=== PATIENT | female | born 1985 | race Caucasian/White ===

== ENCOUNTER 2017-03-06 09:36 | Emergency (ER) | payer SELFPAY ==
[2017-03-06] MEDS ORDERED: HYDROCODONE/ACETAMINOPHEN 5-325 MG TABLET PO ONE (09:49)
[2017-03-06] MEDS ORDERED: ONDANSETRON 4 MG TAB.RAPDIS PO ONE (09:49)
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
[2017-03-06 10:17] LABS: ABSOLUTE BASOPHILS # (AUTO) 0.1 10^3/uL (0.0-0.2); ABSOLUTE EOSINOPHILS # (AUTO) 0.3 10^3/uL (0.0-0.6); ABSOLUTE LYMPHOCYTES (AUTO) 2.3 10^3/uL (0.5-4.7); ABSOLUTE MONOCYTES (AUTO) 0.6 10^3/uL (0.1-1.4); ABSOLUTE NEUT (AUTO) 4.9 10^3/uL (1.7-8.2); BASOPHILS % (AUTO) 0.7 % (0-2); EOSINOPHILS % (AUTO) 3.2 % (0-6); HEMATOCRIT 41.6 % (36.0-47.0); HEMOGLOBIN 13.5 g/dL (12.0-15.5); HGB HCT DIFFERENCE -1.1; LYMPHOCYTES % (AUTO) 28.1 % (13-45); MEAN CORPUSCULAR HEMOGLOBIN 25.2 pg (27.0-33.4); MEAN CORPUSCULAR HGB CONC 32.6 g/dL (32.0-36.0); MEAN CORPUSCULAR VOLUME 77 fl (80-97); MONOCYTES % (AUTO) 7.7 % (3-13); RED BLOOD COUNT 5.37 10^6/uL (3.72-5.28); RED CELL DISTRIBUTION WIDTH 17.1 % (11.5-14.0); SEGMENTED NEUTROPHILS % (AUTO) 60.3 % (42-78); WHITE BLOOD COUNT 8.1 10^3/uL (4.0-10.5)
--- NOTE | 2017-03-06 10:18 | RADIOLOGY REPORT (SQ) ---
EXAM DESCRIPTION: CT HEAD WITHOUT COMPLETED DATE/TIME: 03/06/2017 10:08 am REASON FOR STUDY: ARMANDO COMPARISON: None. TECHNIQUE: Axial images acquired through the brain without intravenous contrast. Images reviewed wi th bone, brain and subdural windows. Images stored on PACS. All CT scanners at this facility use dose modulation, iterative reconstruction, and/or weight based d osing when appropriate to reduce radiation dose to as low as reasonably achievable (ALARA). [facility]: Dose Right [facility]: CareDose [facility]: Dose Right [facility]: Teradose 4D [facility]: [facility] [place] RADIATION DOSE: mGy. LIMITATIONS: None. FINDINGS: VENTRICLES: Normal size and contour. Stable ventricular shunt. CEREBRUM: No masses. No hemorrhage. No midline shift. No evidence for acute infarction. Normal gra y/white matter differentiation. No areas of low density in the white matter. CEREBELLUM: Stent in the right transverse sinus. No masses. No hemorrhage. No alteration of densit y. No evidence for acute infarction. EXTRAAXIAL SPACES: No fluid collections. No masses. ORBITS AND GLOBE: No intra- or extraconal masses. Normal contour of globe without masses. CALVARIUM: No fracture. PARANASAL SINUSES: No fluid or mucosal thickening. SOFT TISSUES: No mass or hematoma. OTHER: No other significant finding. IMPRESSION: UNREMARKABLE BRAIN CT WITHOUT CONTRAST. STABLE VENTRICULAR SHUNT AND STABLE STENT IN TH E RIGHT TRANSVERSE SINUS. NO HYDROCEPHALUS. EVIDENCE OF ACUTE STROKE: NO. COMMENT: Quality ID # [id number]: Final reports with documentation of one or more dose reduction techniques (e.g., Automated exposure control, adjustment of the mA and/or kV according to patient size, use of iterative reconstruction technique) TECHNICAL DOCUMENTATION: JOB ID: [id number]- All Rights Reserved
[2017-03-06 10:22] LABS: APPEARANCE,URINE SLIGHTLY-CLOUDY; BILIRUBIN,URINE NEGATIVE (NEGATIVE); GLUCOSE, URINE NEGATIVE (NEGATIVE); KETONES,URINE NEGATIVE (NEGATIVE); LEUKOCYTE ESTERASE,URINE NEGATIVE (NEGATIVE); NITRITE,URINE NEGATIVE (NEGATIVE); PROTEIN,URINE 30 mg/dL (NEGATIVE)
[2017-03-06] MEDS ORDERED: HYDROMORPHONE HCL INJ/PF 2 MG/ML AMPULE IV ONE (10:23)
--- NOTE | 2017-03-06 10:26 | ER Document Report ---
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 Associated with slight nausea no vomiting. Denies any focal weaknesses numbness tingling sensation. Denies any neck pain neck stiffness. Denies any fever chills runny nose sore throat or cough. Denies any dysuria frequency urgency. TRAVEL OUTSIDE OF THE [place].S. IN LAST 30 DAYS: No - Related Data Allergies/Adverse Reactions: hydroxyzine Allergy (Verified 01/31/17 13:50) ibuprofen Allergy (Verified 01/31/17 13:50) ketorolac [From Toradol] Allergy (Verified 03/06/17 09:40) tramadol Allergy (Verified 01/31/17 13:50) Past Medical History - General Information source: Patient - Social History Smoking Status: Current Every Day Smoker Chew tobacco use (# tins/day): No Frequency of alcohol use: None Drug Abuse: None Family History: Reviewed & Not Pertinent Patient has suicidal ideation: No Patient has homicidal ideation: No Renal/ Medical History: Denies: Hx Peritoneal Dialysis Psychiatric Medical History: Reports: Hx Depression Past Surgical History: Reports: Hx Section, Hx Cholecystectomy, Hx Orthopedic Surgery, Hx Tubal Ligation Review of Systems - Review of Systems Notes: REVIEW OF SYSTEMS: CONSTITUTIONAL : Denies fever, chills, or sweats. Denies recent illness. EENT: Denies eye, ear, throat, or mouth pain or symptoms. Denies nasal or sinus congestion or discharge. Denies throat, tongue, or mouth swelling or difficulty swallowing. CARDIOVASCULAR: Denies chest pain. Denies palpitations or racing or irregular heart beat. Denies ankle edema. RESPIRATORY: Denies cough, cold, or chest congestion. Denies shortness of breath, difficulty breathing, or wheezing. GASTROINTESTINAL: Denies abdominal pain or distention. Denies nausea, vomiting , or diarrhea. Denies blood in vomitus, stools, or per rectum. Denies black, tarry stools. Denies constipation. GENITOURINARY: Denies difficulty urinating, painful urination, burning, frequency, blood in urine, or discharge. FEMALE GENITOURINARY: Denies vaginal bleeding, heavy or abnormal periods, irregular periods. Denies vaginal discharge or odor. MUSCULOSKELETAL: Denies back or neck pain or stiffness. Denies joint pain or swelling. SKIN: Denies rash, lesions or sores. HEMATOLOGIC : Denies easy bruising or bleeding. LYMPHATIC: Denies swollen, enlarged glands. NEUROLOGICAL: Denies confusion or altered mental status. Denies passing out or loss of consciousness. Denies dizziness or lightheadedness. Denies headache. Denies weakness or paralysis or loss of use of either side. Denies problems with gait or speech. Denies sensory loss, numbness, or tingling. Denies seizures. PSYCHIATRIC: Denies anxiety or stress. Denies depression, suicidal ideation, or homicidal ideation. ALL OTHER SYSTEMS REVIEWED AND NEGATIVE. PHYSICAL EXAMINATION: GENERAL: Well-appearing, well-nourished and in no acute distress. Morbidly obese HEAD: Atraumatic, normocephalic. EYES: Pupils equal round and reactive to light, extraocular movements intact, conjunctiva are normal. ENT: Nares patent, oropharynx clear without exudates. Moist mucous membranes. NECK: Normal range of motion, supple without lymphadenopathy LUNGS: Breath sounds clear to auscultation bilaterally and equal. No wheezes rales or rhonchi. HEART: Regular rate and rhythm without murmurs ABDOMEN: Soft, nontender, nondistended abdomen. No guarding, no rebound. No masses appreciated. Female : deferred Musculoskeletal: Normal range of motion, no pitting or edema. No cyanosis. NEUROLOGICAL: Cranial nerves grossly intact. Normal speech, normal gait. Normal sensory, motor exams PSYCH: Normal mood, normal affect. SKIN: Warm, Dry, normal turgor, no rashes or lesions noted. Dictation was performed using [employer] voice recognition software Physical Exam - Vital signs Vitals: Temp Pulse Resp BP Pulse Ox 97.9 F 108 H 20 152/86 H 97 03/06/17 09:43 03/06/17 09:43 03/06/17 09:43 03/06/17 09:43 03/06/17 09:43 Course - Re-evaluation Re-evalutation: 03/06/17 12:54 Patient feeling much better and wished to go home - Vital Signs Vital signs: Temp Pulse Resp BP Pulse Ox 97.9 F 108 H 20 152/86 H 97 03/06/17 09:43 03/06/17 09:43 03/06/17 09:43 03/06/17 09:43 03/06/17 09:43 - Laboratory Result Diagrams: 03/06/17 10:00 03/06/17 10:00 Laboratory results interpreted by me: 03/06/17 03/06/17 10:00 10:00 RBC 5.37 H MCV 77 L MCH 25.2 L RDW 17.1 H Urine Protein 30 H Urine Blood SMALL H Urine Urobilinogen 2.0 H - Diagnostic Test Radiology results interpreted by me: 03/06/17 12:55 CT of the brain is negative for no hydrocephalus, shunt in place Discharge - Discharge Clinical Impression: Headache Qualifiers: Headache type: tension-type Headache chronicity pattern: acute headache Disposition: HOME, SELF-CARE Instructions: Headache ([facility]) Prescriptions: Diclofenac Sodium 50 mg PO TID #30 tablet.
[2017-03-06 10:34] LABS: ALANINE AMINOTRANSFERASE 44 U/L (9-52); ALBUMIN 4.4 g/dL (3.5-5.0); ALKALINE PHOSPHATASE 88 U/L (38-126); ANION GAP 11 (5-19); ASPARTATE AMINO TRANSFERASE 18 U/L (14-36); BILIRUBIN,DIRECT 0.4 mg/dL (0.0-0.4); BILIRUBIN,TOTAL 0.4 mg/dL (0.2-1.3); BLOOD UREA NITROGEN 17 mg/dL (7-20); CALCIUM 10.1 mg/dL (8.4-10.2); CARBON DIOXIDE 28 mmol/L (22-30); CHLORIDE 104 mmol/L (98-107); CREATININE RESULT 0.85 mg/dL (0.52-1.25); GLUCOSE 89 mg/dL (75-110); POTASSIUM 4.6 mmol/L (3.6-5.0); SODIUM 143.3 mmol/L (137-145); TOTAL PROTEIN 7.4 g/dL (6.3-8.2)
[2017-03-06 13:21] VITALS: BP 135/78
== END 2017-03-06 13:23 | disposition home or self-care (01) ==
LOC: ER 09:36
DX: G44.209 Tension-type headache, unspecified, not intractable (principal); R11.0 Nausea; E66.01 Morbid (severe) obesity due to excess calories; Z68.43 Body mass index [BMI] 50.0-59.9, adult; F17.200 Nicotine dependence, unspecified, uncomplicated; Z98.2 Presence of cerebrospinal fluid drainage device; Z88.6 Allergy status to analgesic agent; Z88.5 Allergy status to narcotic agent; Z88.8 Allergy status to other drugs, medicaments and biological substances
CPT/HCPCS: 99284; 96374; 36415; 85025; 81025; 80053; 81001; 70450; S0119; J1170

== ENCOUNTER 2017-03-26 16:38 | Emergency (ER) | payer MEDICAID ==
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
[2017-03-26 18:08] VITALS: BP 144/87
== END 2017-03-26 18:10 | disposition home or self-care (01) ==
LOC: ER 16:38
DX: Z76.0 Encounter for issue of repeat prescription (principal); F41.9 Anxiety disorder, unspecified; T42.4X6A Underdosing of benzodiazepines, initial encounter; Z91.128 Patient's intentional underdosing of medication regimen for other reason; Z91.14 Patient's other noncompliance with medication regimen; R53.1 Weakness; G93.2 Benign intracranial hypertension; F17.210 Nicotine dependence, cigarettes, uncomplicated; Z71.6 Tobacco abuse counseling; Z88.6 Allergy status to analgesic agent; Z88.8 Allergy status to other drugs, medicaments and biological substances
CPT/HCPCS: 99281

== ENCOUNTER 2017-03-28 20:24 | Emergency (ER) | payer MEDICAID ==
[2017-03-28] MEDS ORDERED: ONDANSETRON 4 MG TAB.RAPDIS PO ONE (22:18)
[2017-03-28] MEDS ORDERED: ACETAMINOPHEN 325 MG TABLET PO ONE (22:18)
[2017-03-28] MEDS ORDERED: NAPROXEN 250 MG TABLET PO ONE (22:18)
--- NOTE | 2017-03-28 22:22 | ER Document Report ---
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 She did not have LOC and denies blurry vision, focal weakness, numbness, tingling, neck pain, open wounds, difficulty walking, chest pain, shortness of breath or back pain. TRAVEL OUTSIDE OF THE [place].S. IN LAST 30 DAYS: No - Related Data Allergies/Adverse Reactions: hydroxyzine Allergy (Verified 03/28/17 20:27) ibuprofen Allergy (Verified 03/28/17 20:27) ketorolac [From Toradol] Allergy (Verified 03/28/17 20:27) tramadol Allergy (Verified 03/28/17 20:27) Past Medical History - General Information source: Patient - Social History Smoking Status: Unknown if Ever Smoked Family History: Reviewed & Not Pertinent Patient has suicidal ideation: No Patient has homicidal ideation: No Renal/ Medical History: Denies: Hx Peritoneal Dialysis Psychiatric Medical History: Reports: Hx Depression Past Surgical History: Reports: Hx Section - x3, Hx Cholecystectomy, Hx Neurologic Surgery - MANUFACTURING CHIEF ENGINEER SHUNT, Hx Orthopedic Surgery - left ankle x1, right ankle x5, Hx Tubal Ligation Review of Systems - Review of Systems Notes: REVIEW OF SYSTEMS: CONSTITUTIONAL: -fevers, -chills EENT: -eye pain, -difficulty swallowing, -nasal congestion CARDIOVASCULAR:-chest pain, -syncope. RESPIRATORY: -cough, -SOB GASTROINTESTINAL: -abdominal pain, +nausea, -vomiting, -diarrhea GENITOURINARY: -dysuria, -hematuria MUSCULOSKELETAL: +right shoulder and hip pain, -back pain, -neck pain SKIN: -rash or skin lesions. HEMATOLOGIC: -easy bruising or bleeding. LYMPHATIC: -swollen, enlarged glands. NEUROLOGICAL: -altered mental status or loss of consciousness, -neurologic symptoms PSYCHIATRIC: -anxiety, -depression. ALL OTHER SYSTEMS REVIEWED AND NEGATIVE. Physical Exam - Vital signs Vitals: Temp Pulse Resp BP Pulse Ox 98.2 F 123 H 16 140/93 H 94 03/28/17 20:48 03/28/17 20:48 03/28/17 20:48 03/28/17 20:48 03/28/17 20:48 - Notes Notes: PHYSICAL EXAMINATION: GENERAL: Uncomfortable. HEAD: Atraumatic, normocephalic. No swelling or open wounds over right parietal region. EYES: Pupils equal round and reactive to light, extraocular movements intact, sclera anicteric, conjunctiva are normal. ENT: nares patent, oropharynx clear without exudates. Moist mucous membranes. NECK: Normal range of motion, supple without lymphadenopathy LUNGS: Breath sounds clear to auscultation bilaterally and equal. No wheezes rales or rhonchi. HEART: Tachycardia, regular rhythm. HR 105 on my evaluation. ABDOMEN: Soft, nontender, normoactive bowel sounds. No guarding, no rebound. No masses appreciated. EXTREMITIES: Tenderness and bruising over right anterior shoulder. Full ROM. No tenderness over right hip and able to ambulate without difficulty. NEUROLOGICAL: Cranial nerves grossly intact. Normal speech, normal gait. Normal sensory and motor exams. PSYCH: Normal mood, normal affect. SKIN: Warm, Dry, normal turgor, no rashes or lesions noted. Course - Re-evaluation Re-evalutation: Patient presents after a mechanical fall when she slipped on water getting out of the shower. Her right shoulder x-ray does not show any fractures or dislocations. Right hip is not tender and she is able to ambulate. No signs of trauma on her head CT and using the [place] Head CT Rule, a head CT is not necessary for this patient (sensitivity 83-100% for all intracranial traumatic findings, sensitivity 100% for findings requiring neurosurgical intervention). 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 Instructed her about contusion management with ice packs and Tylenol, since she has a rash to NSAIDs. Her initial tachycardia improved after pain control but she is still slightly tachycardic on discharge because she said that she is still slightly in pain. Given return precautions and she understands. - Vital Signs Vital signs: Temp Pulse Resp BP Pulse Ox 98.2 F 123 H 16 140/93 H 94 03/28/17 20:48 03/28/17 20:48 03/28/17 20:48 03/28/17 20:48 03/28/17 20:48 - Diagnostic Test Radiology reviewed: Image reviewed, Reports reviewed Radiology results interpreted by me: Right shoulder x-ray: NAD Discharge - Discharge Clinical Impression: Contusion of shoulder, right Qualifiers: Encounter type: initial encounter Qualified Code(s): S40.011A - Contusion of right shoulder, initial encounter Contusion of head Qualifiers: Encounter type: initial encounter Contusion of head detail: unspecified part of head Qualified Code(s): S00.93XA - Contusion of unspecified part of head, initial encounter Condition: Stable Disposition: HOME, SELF-CARE Additional Instructions: Contusion Your injury has resulted in a contusion -- a crushing of the deep tissues. No injury to important structures was detected during the physician's exam. Contusions vary in the amount of pain they cause, and in the length of time required for healing. Typically, the area will become bruised, and will remain painful to touch for two or three weeks. However, most patients are back to working and playing within a few days. After the initial period of rest and cold-packs, your symptoms (together with the doctor's recommendations) will determine how rapidly you can get back to full activity. Usually this means "do what feels okay, but don't do things that hurt." If re-examination was recommended, it's important to follow up as instructed. Call the doctor or return any time if pain increases, if swelling becomes severe, if you develop numbness or weakness in an injured extremity, or if any other alarming symptoms occur. Forms: Elevated Blood Pressure
--- NOTE | 2017-03-28 22:43 | RADIOLOGY REPORT (SQ) ---
EXAM DESCRIPTION: SHOULDER RIGHT 2 OR MORE VIEWS COMPLETED DATE/TIME: 03/28/2017 10:32 pm REASON FOR STUDY: right shoulder pain COMPARISON: None. NUMBER OF VIEWS: Three views. TECHNIQUE: Internal rotation, external rotation, and Y view images acquired of the right shoulder. LIMITATIONS: None. FINDINGS: MINERALIZATION: Normal. BONES: No acute fracture or dislocation. No worrisome bone lesions. JOINTS: No dislocation. VISUALIZED LUNGS AND RIBS: No pneumothorax. No rib fracture. SOFT TISSUES: No radiopaque foreign body. OTHER: No other significant finding. IMPRESSION: NEGATIVE STUDY OF THE RIGHT SHOULDER. NO RADIOGRAPHIC EVIDENCE OF ACUTE INJURY. TECHNICAL DOCUMENTATION: JOB ID: [id number] [employer]- All Rights Reserved
[2017-03-28] MEDS ORDERED: HYDROCODONE/ACETAMINOPHEN 5-325 MG TABLET PO ONE (23:07)
[2017-03-28 23:44] VITALS: BP 122/62
== END 2017-03-28 23:40 | disposition home or self-care (01) ==
LOC: ER 20:24
DX: S40.011A Contusion of right shoulder, initial encounter (principal); S00.93XA Contusion of unspecified part of head, initial encounter; M25.511 Pain in right shoulder; M25.551 Pain in right hip; R51 Headache; W18.2XXA Fall in (into) shower or empty bathtub, initial encounter
CPT/HCPCS: 99283; 73030; J3490; S0119

== ENCOUNTER 2017-03-29 07:13 | Emergency (ER) | payer MEDICAID ==
[2017-03-29 07:29] VITALS: BP 131/85
[2017-03-29] MEDS ORDERED: HYDROCODONE/ACETAMINOPHEN 5-325 MG TABLET PO ONE (07:48)
[2017-03-29] MEDS ORDERED: LIDOCAINE 5% (700 MG) TRANSDERMAL ADH..PATCH TP ONE (08:20)
--- NOTE | 2017-03-29 08:21 | ER Document Report ---
ED Fall - General Chief Complaint: Fall Stated Complaint: FALL/ RIGHT SIDE PAIN Time Seen by Provider: 03/29/17 07:41 Mode of Arrival: Ambulatory Information source: Patient Notes: Patient is a 31-year-old female who presents to the ER today for the second time in 12 hours for right shoulder pain after slipping and falling in the shower, hitting her shoulder on the tile floor. Patient states that she also hit her head but denies any loss of consciousness, nausea or vomiting. States that she returns because Tylenol is not working for her shoulder pain. She denies pain anywhere else. She states that she is living in a homeless snf right now. TRAVEL OUTSIDE OF THE U[place] 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, Hx Orthopedic Surgery - left ankle x1, right ankle x5, Hx Tubal Ligation Review of Systems - Review of Systems Constitutional: No symptoms reported EENT: No symptoms reported Cardiovascular: No symptoms reported Respiratory: No symptoms reported Gastrointestinal: No symptoms reported Genitourinary: No symptoms reported Female Genitourinary: No symptoms reported Musculoskeletal: See HPI Skin: No symptoms reported Hematologic/Lymphatic: No symptoms reported Neurological/Psychological: No symptoms reported Physical Exam - Vital signs Vitals: Temp Pulse Resp BP Pulse Ox 97.6 F 107 H 14 131/85 H 95 03/29/17 07:17 03/29/17 07:17 03/29/17 07:17 03/29/17 07:17 03/29/17 07:17 - Notes Notes: PHYSICAL EXAMINATION: GENERAL: Uncomfortable appearing, but in no acute distress. HEAD: Atraumatic, normocephalic. EYES: Pupils equal round and reactive to light, extraocular movements intact, sclera anicteric, conjunctiva are normal. NECK: Normal range of motion, supple without lymphadenopathy LUNGS: CTAB and equal. No wheezes rales or rhonchi. HEART: Regular rate and rhythm without murmurs EXTREMITIES: tender to right shoulder, Normal range of motion, no pitting edema. No cyanosis. NEUROLOGICAL: Cranial nerves grossly intact. Normal sensory/motor exams. PSYCH: Normal mood, normal affect. SKIN: Warm, Dry, normal turgor, no rashes or lesions noted Course - Re-evaluation Re-evalutation: 03/29/17 08:18 Patient is homeless and it is 20 outside currently, she has been here 3 times in the past 3 days. I will give patient pain medication here but will not send her home with any pain medication that she is going back to the homeless snf and there is nothing on her x-ray that is acute. I will place her in a sling here for comfort. - Vital Signs Vital signs: Temp Pulse Resp BP Pulse Ox 97.6 F 107 H 14 131/85 H 95 03/29/17 07:17 03/29/17 07:17 03/29/17 07:17 03/29/17 07:17 03/29/17 07:17 Discharge - Discharge Clinical Impression: Left shoulder pain Qualifiers: Chronicity: acute Qualified Code(s): M25.512 - Pain in left shoulder Condition: Stable Disposition: HOME, SELF-CARE Additional Instructions: Return immediately for any new or worsening symptoms. Follow up with primary care provider, call tomorrow to make followup appointment. Prescriptions: Lidocaine 1 each TP DAILY #10 adh..patch
[2017-03-29] MEDS ORDERED: HYDROCODONE/ACETAMINOPHEN 5-325 MG (6 TAB/ER DISP) PO PRN (08:56)
== END 2017-03-29 08:36 | disposition home or self-care (01) ==
LOC: ER 07:13
DX: M25.512 Pain in left shoulder (principal); W18.2XXA Fall in (into) shower or empty bathtub, initial encounter; Y93.E1 Activity, personal bathing and showering; Y92.89 Other specified places as the place of occurrence of the external cause; Z88.6 Allergy status to analgesic agent; Z88.5 Allergy status to narcotic agent; Z88.8 Allergy status to other drugs, medicaments and biological substances; Z59.0 Homelessness
CPT/HCPCS: 99283; L3650; J3490

== ENCOUNTER 2017-04-10 08:20 | Emergency (ER) | payer MEDICAID ==
[2017-04-10 08:44] VITALS: BP 121/85
[2017-04-10] MEDS ORDERED: NORMAL SALINE 500 ML IV ONE (09:20)
[2017-04-10] MEDS ORDERED: LIDOCAINE 5% (700 MG) TRANSDERMAL ADH..PATCH TP ONE (09:23)
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
== END 2017-04-10 09:25 | disposition left against medical advice (07) ==
LOC: ER 08:20
DX: R51 Headache (principal); R42 Dizziness and giddiness; G93.2 Benign intracranial hypertension; Z98.2 Presence of cerebrospinal fluid drainage device; Z91.81 History of falling; Z59.0 Homelessness; Z88.6 Allergy status to analgesic agent; Z88.8 Allergy status to other drugs, medicaments and biological substances; Z88.5 Allergy status to narcotic agent; Z53.20 Procedure and treatment not carried out because of patient's decision for unspecified reasons
CPT/HCPCS: 99281

== ENCOUNTER 2017-04-23 09:39 | Emergency (ER) | payer MEDICAID ==
[2017-04-23 10:08] VITALS: BP 130/86
[2017-04-23] MEDS ORDERED: HYDROMORPHONE HCL INJ/PF 2 MG/ML AMPULE IV ONE (10:28)
[2017-04-23] MEDS ORDERED: ONDANSETRON HCL INJ/PF 4 MG/2 ML SDV IV ONE (10:28)
--- NOTE | 2017-04-23 10:31 | ER Document Report ---
ED Medical Screen (RME) - General Chief Complaint: Flank Pain Stated Complaint: BACK PAIN,URINARY ISSUES Time Seen by Provider: 04/23/17 10:24 Notes: 31-year-old female patient comes emergency room complaining of burning with urination for the past 3 days. Try Pyridium without help. This morning woke up with noting blood in the urine and severe right flank pain. She does have past history of kidney stones. She is standing up in semi-pacing the floor bent over suggestive of renal colic symptoms. There is right CVA percussion tenderness. There is no tenderness to palpate the muscles. I have greeted and performed a rapid initial assessment of this patient. A comprehensive ED assessment and evaluation of the patient, analysis of test results and completion of the medical decision making process will be conducted by additional ED providers. TRAVEL OUTSIDE OF THE [place] IN LAST 30 DAYS: No - Related Data Allergies/Adverse Reactions: hydroxyzine Allergy (Verified 04/23/17 09:49) ibuprofen Allergy (Verified 04/23/17 09:49) ketorolac [From Toradol] Allergy (Verified 04/23/17 09:49) tramadol Allergy (Verified 04/23/17 09:49) Past Medical History - Social History Chew tobacco use (# tins/day): No Frequency of alcohol use: None Drug Abuse: None Renal/ Medical History: Reports: Hx Kidney Stones. 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
[2017-04-23 10:44] LABS: APPEARANCE,URINE SLIGHTLY-CLOUDY; BILIRUBIN,URINE NEGATIVE (NEGATIVE); GLUCOSE, URINE NEGATIVE (NEGATIVE); KETONES,URINE NEGATIVE (NEGATIVE); LEUKOCYTE ESTERASE,URINE NEGATIVE (NEGATIVE); NITRITE,URINE NEGATIVE (NEGATIVE); PROTEIN,URINE 100 mg/dL (NEGATIVE); URINE SPECIFIC GRAVITY 1.029
[2017-04-23 10:47] LABS: COLOR,URINE DARK YELLOW
[2017-04-23 11:01] LABS: ABSOLUTE BASOPHILS # (AUTO) 0.1 10^3/uL (0.0-0.2); ABSOLUTE EOSINOPHILS # (AUTO) 0.3 10^3/uL (0.0-0.6); ABSOLUTE LYMPHOCYTES (AUTO) 2.7 10^3/uL (0.5-4.7); ABSOLUTE MONOCYTES (AUTO) 0.6 10^3/uL (0.1-1.4); ABSOLUTE NEUT (AUTO) 8.2 10^3/uL (1.7-8.2); BASOPHILS % (AUTO) 0.5 % (0-2); EOSINOPHILS % (AUTO) 2.3 % (0-6); HEMATOCRIT 42.8 % (36.0-47.0); LYMPHOCYTES % (AUTO) 23.2 % (13-45); MEAN CORPUSCULAR HEMOGLOBIN 25.2 pg (27.0-33.4); MEAN CORPUSCULAR HGB CONC 32.6 g/dL (32.0-36.0); MEAN CORPUSCULAR VOLUME 77 fl (80-97); MONOCYTES % (AUTO) 5.4 % (3-13); PLATELET COUNT 304 10^3/uL (150-450); RED BLOOD COUNT 5.54 10^6/uL (3.72-5.28); RED CELL DISTRIBUTION WIDTH 17.1 % (11.5-14.0); SEGMENTED NEUTROPHILS % (AUTO) 68.6 % (42-78); TOTAL CELLS COUNTED % (AUTO) 100 %; WHITE BLOOD COUNT 11.9 10^3/uL (4.0-10.5)
--- NOTE | 2017-04-23 11:12 | RADIOLOGY REPORT (SQ) ---
EXAM DESCRIPTION: CT LTD RENAL STONE PROTOCOL ON COMPLETED DATE/TIME: 04/23/2017 10:53 am REASON FOR STUDY: R flank pain, PMH kidney stones COMPARISON: None. TECHNIQUE: CT scan of the abdomen and pelvis performed without intravenous or oral contrast. Images reviewed with lung, soft tissue, and bone windows. Reconstructed coronal and sagittal MPR images revi ewed. All images stored on PACS. All CT scanners at this facility use dose modulation, iterative reconstruction, and/or weight based d osing when appropriate to reduce radiation dose to as low as reasonably achievable (ALARA). [facility]: Dose Right [facility]: CareDose [facility]: Dose Right [facility]: Teradose 4D [facility]: [employer] RADIATION DOSE: CT Rad equipment meets quality standard of care and radiation dose reduction techniq ues were employed. CTDIvol: 19.0 mGy. DLP: 1134 mGy-cm.mGy. LIMITATIONS: None. FINDINGS: LOWER CHEST: No significant findings. No nodules or infiltrates. NON-CONTRASTED LIVER, SPLEEN, ADRENALS: Evaluation limited by lack of IV contrast. No identified sign ificant masses. PANCREAS: No masses. No peripancreatic inflammatory changes. GALLBLADDER: Surgically absent. RIGHT KIDNEY AND URETER: No suspicious masses. Assessment limited by lack of IV contrast. No signif icant calcifications. No hydronephrosis or hydroureter. LEFT KIDNEY AND URETER: No suspicious masses. Assessment limited by lack of IV contrast. No signifi cant calcifications. No hydronephrosis or hydroureter. AORTA AND RETROPERITONEUM: No aneurysm. No retroperitoneal masses or adenopathy. BOWEL AND PERITONEAL CAVITY: No obvious masses or inflammatory changes. No free fluid. APPENDIX: Normal. PELVIS, BLADDER, AND ABDOMINAL WALL:No abnormal masses. No free fluid. Bladder normal. Very small fa t containing umbilical hernia, not significant. BONES: No significant findings. OTHER: Shunt tube is present which descends in the right chest and abdominal wall entering the mid ab domen on the right with its tip in the pelvis. No fluid collection is seen adjacent to the shunt tub e. IMPRESSION: 1. No acute abnormality. In particular no evidence of urinary tract stone or obstructi on. 2. Status post cholecystectomy. 3. Shunt tube is noted in place. COMMENT: Quality ID # [id number]: Final reports with documentation of one or more dose reduction techniques (e.g., Automated exposure control, adjustment of the mA and/or kV according to patient size, use of iterative reconstruction technique) TECHNICAL DOCUMENTATION: JOB ID: [id number] [employer]- All Rights Reserved
[2017-04-23 11:24] LABS: ALANINE AMINOTRANSFERASE 32 U/L (9-52); ALBUMIN 4.6 g/dL (3.5-5.0); ALKALINE PHOSPHATASE 92 U/L (38-126); ANION GAP 9 (5-19); ASPARTATE AMINO TRANSFERASE 18 U/L (14-36); BILIRUBIN,DIRECT 0.2 mg/dL (0.0-0.4); BILIRUBIN,TOTAL 0.6 mg/dL (0.2-1.3); BLOOD UREA NITROGEN 16 mg/dL (7-20); CALCIUM 10.2 mg/dL (8.4-10.2); CARBON DIOXIDE 29 mmol/L (22-30); CHLORIDE 106 mmol/L (98-107); GLUCOSE 85 mg/dL (75-110); TOTAL PROTEIN 7.7 g/dL (6.3-8.2)
[2017-04-23] MEDS ORDERED: HYDROCODONE/ACETAMINOPHEN 5-325 MG TABLET PO ONE (11:27)
--- NOTE | 2017-04-23 11:39 | ER Document Report ---
ED General - General Chief Complaint: Flank Pain Stated Complaint: BACK PAIN,URINARY ISSUES Time Seen by Provider: 04/23/17 10:24 Mode of Arrival: Ambulatory Information source: Patient Notes: 31-year-old female history of pseudotumor cerebri with no headaches presents with complaints of right flank pain hematuria. Patient denies any fevers or chills denies any nausea vomiting or diarrhea. Patient notes she had burning on urination 2 days prior. Patient states she took ibuprofen and Pyridium with no improvement of symptoms. She notes she has had one kidney stone in the past TRAVEL OUTSIDE OF THE [place] IN LAST 30 DAYS: No - HPI Onset: Yesterday Onset/Duration: Sudden Quality of pain: Sharp Severity: Mild Pain Level: 1 Associated symptoms: Body/muscle aches Exacerbated by: Denies Relieved by: Denies Similar symptoms previously: Yes Recently seen / treated by doctor: Yes - Related Data Allergies/Adverse Reactions: hydroxyzine Allergy (Verified 04/23/17 09:49) ibuprofen Allergy (Verified 04/23/17 09:49) ketorolac [From Toradol] Allergy (Verified 04/23/17 09:49) tramadol Allergy (Verified 04/23/17 09:49) Past Medical History - Social History Smoking Status: Current Every Day Smoker Cigarette use (# per day): Yes Chew tobacco use (# tins/day): No Smoking Education Provided: No Frequency of alcohol use: None Drug Abuse: None Family History: Reviewed & Not Pertinent Patient has suicidal ideation: No Patient has homicidal ideation: No Renal/ Medical History: Reports: Hx Kidney Stones. 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 Denies recent illness. EENT: Denies eye, ear, throat, or mouth pain or symptoms. Denies nasal or sinus congestion or discharge. Denies throat, tongue, or mouth swelling or difficulty swallowing. CARDIOVASCULAR: Denies chest pain. Denies palpitations or racing or irregular heart beat. Denies ankle edema. RESPIRATORY: Denies cough, cold, or chest congestion. Denies shortness of breath, difficulty breathing, or wheezing. GASTROINTESTINAL: Admits to right flank pain GENITOURINARY: Admits to burning on urination. FEMALE GENITOURINARY: Denies vaginal bleeding, heavy or abnormal periods, irregular periods. Denies vaginal discharge or odor. MUSCULOSKELETAL: Denies back or neck pain or stiffness. Denies joint pain or swelling. SKIN: Denies rash, lesions or sores. HEMATOLOGIC : Denies easy bruising or bleeding. LYMPHATIC: Denies swollen, enlarged glands. NEUROLOGICAL: Denies confusion or altered mental status. Denies passing out or loss of consciousness. Denies dizziness or lightheadedness. Denies headache. Denies weakness or paralysis or loss of use of either side. Denies problems with gait or speech. Denies sensory loss, numbness, or tingling. Denies seizures. PSYCHIATRIC: Denies anxiety or stress. Denies depression, suicidal ideation, or homicidal ideation. ALL OTHER SYSTEMS REVIEWED AND NEGATIVE. PHYSICAL EXAMINATION: GENERAL: Well-appearing, well-nourished and in no acute distress. HEAD: Atraumatic, normocephalic. EYES: Pupils equal round and reactive to light, extraocular movements intact, conjunctiva are normal. ENT: Nares patent, oropharynx clear without exudates. Moist mucous membranes. NECK: Normal range of motion, supple without lymphadenopathy LUNGS: Breath sounds clear to auscultation bilaterally and equal. No wheezes rales or rhonchi. HEART: Regular rate and rhythm without murmurs ABDOMEN: Soft, nontender, nondistended abdomen. No guarding, no rebound. No masses appreciated. Female : deferred Musculoskeletal: Normal range of motion, no pitting or edema. No cyanosis. NEUROLOGICAL: Cranial nerves grossly intact. Normal speech, normal gait. Normal sensory, motor exams PSYCH: Normal mood, normal affect. SKIN: Warm, Dry, normal turgor, no rashes or lesions noted. Dictation was performed using [employer] voice recognition software Physical Exam - Vital signs Vitals: Temp Pulse Resp BP Pulse Ox 97.6 F 103 H 18 130/86 H 96 04/23/17 09:51 04/23/17 09:51 04/23/17 09:51 04/23/17 09:51 04/23/17 09:51 Course - Re-evaluation Re-evalutation: 04/23/17 12:50 Patient's presentation is quite benign in appearance, CT noted no significant abnormality, patient's allergies to ibuprofen Toradol tramadol are noted, patient received Dilaudid by the initial physician, she notes that she received lots of Dilaudid while she was in [place] and she has a tolerance and needs more pain medication. [place] drug database review noted the patient has not received any narcotics here I will treat the patient with pain control for her flank pain but no obvious source is noted, given that she is having burning in urination I did put her on antibiotics at her request After performing a Medical Screening Examination, I estimate there is LOW risk for ACUTE APPENDICITIS, BOWEL OBSTRUCTION, ACUTE CHOLECYSTITIS, PERFORATED DIVERTICULITIS, INCARCERATED HERNIA, PANCREATITIS, PELVIC INFLAMMATORY DISEASE, PERFORATED ULCER, ECTOPIC , or TUBO-OVARIAN ABSCESS, thus I consider the discharge disposition reasonable. Also, there is no evidence or peritonitis , sepsis, or toxicity. I have reevaluated this patient multiple times and no significant life threatening changes are noted. The patient and I have discussed the diagnosis and risks, and we agree with discharging home with close follow-up with the understanding that symptoms and presentations can change. We also discussed returning to the Emergency Department immediately if new or worsening symptoms occur. We have discussed the symptoms which are most concerning (e.g., bloody stool, fever, changing or worsening pain, vomiting) that necessitate immediate return. - Vital Signs Vital signs: Temp Pulse Resp BP Pulse Ox 97.6 F 103 H 18 130/86 H 96 04/23/17 09:51 04/23/17 09:51 04/23/17 10:15 04/23/17 09:51 04/23/17 09:51 - Laboratory Result Diagrams: 04/23/17 10:35 04/23/17 10:35 Laboratory results interpreted by me: 04/23/17 04/23/17 09:56 10:35 WBC 11.9 H RBC 5.54 H MCV 77 L MCH 25.2 L RDW 17.1 H Urine Protein 100 H Urine Blood LARGE H Urine Urobilinogen 4.0 H - Diagnostic Test Radiology reviewed: Image reviewed, Reports reviewed - No acute abnormality Discharge - Discharge Clinical Impression: Flank pain Hematuria Qualifiers: Hematuria type: gross Qualified Code(s): R31.0 - Gross hematuria Condition: Stable Disposition: HOME, SELF-CARE Instructions: Flank Pain ([facility]) Prescriptions: Acetaminophen with Codeine [Tylenol #3 Tablet] 1 each PO Q4HP PRN #10 tablet PRN Reason: Ciprofloxacin HCl [Cipro 500 mg Tablet] 500 mg PO BID #10 tablet Hydrocodone/Acetaminophen [[place] 5-325 mg Tablet] 1 tab PO Q6 #10 tablet Referrals: MAX MICHELLE MD [Primary Care Provider] - Follow up tomorrow
== END 2017-04-23 12:05 | disposition home or self-care (01) ==
LOC: ER 09:39
DX: R10.9 Unspecified abdominal pain (principal); R31.0 Gross hematuria; M79.1 Myalgia; F17.210 Nicotine dependence, cigarettes, uncomplicated; Z88.6 Allergy status to analgesic agent; Z87.442 Personal history of urinary calculi; Z90.49 Acquired absence of other specified parts of digestive tract; Z98.51 Tubal ligation status
CPT/HCPCS: 99284; 96374; 96375; 36415; 85025; 80053; 81001; 76380; J1170; J2405

== ENCOUNTER 2017-04-26 20:04 | Emergency (ER) | payer MEDICAID ==
[2017-04-26] MEDS ORDERED: MORPHINE SULFATE 10 MG/ML INJ IV ONE ×2 (20:21→21:16)
[2017-04-26] MEDS ORDERED: NORMAL SALINE 1000 ML 1,000 ML IV ONE (20:21)
--- NOTE | 2017-04-26 20:24 | ER Document Report ---
ED Medical Screen (RME) - General Chief Complaint: Flank Pain Stated Complaint: FLANK PAIN Time Seen by Provider: 04/26/17 20:21 Mode of Arrival: Ambulatory Information source: Patient TRAVEL OUTSIDE OF THE [place] IN LAST 30 DAYS: No - HPI Patient complains to provider of: flank pain Onset: Yesterday - pt. states she wsa seen here for flank pain and hematuria and was told she had a uti. States pain is getting worse and still has blood in urine - Related Data Allergies/Adverse Reactions: hydroxyzine Allergy (Verified 04/23/17 09:49) ibuprofen Allergy (Verified 04/23/17 09:49) ketorolac [From Toradol] Allergy (Verified 04/23/17 09:49) tramadol Allergy (Verified 04/23/17 09:49) Past Medical History - Social History Chew tobacco use (# tins/day): No Frequency of alcohol use: None Renal/ Medical History: Reports: Hx Kidney Stones. 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
[2017-04-26 20:44] LABS: ABSOLUTE BASOPHILS # (AUTO) 0.1 10^3/uL (0.0-0.2); ABSOLUTE EOSINOPHILS # (AUTO) 0.3 10^3/uL (0.0-0.6); ABSOLUTE LYMPHOCYTES (AUTO) 2.5 10^3/uL (0.5-4.7); ABSOLUTE MONOCYTES (AUTO) 0.4 10^3/uL (0.1-1.4); ABSOLUTE NEUT (AUTO) 4.2 10^3/uL (1.7-8.2); BASOPHILS % (AUTO) 0.8 % (0-2); EOSINOPHILS % (AUTO) 4.4 % (0-6); HEMOGLOBIN 13.1 g/dL (12.0-15.5); LYMPHOCYTES % (AUTO) 33.2 % (13-45); MEAN CORPUSCULAR HEMOGLOBIN 25.4 pg (27.0-33.4); MEAN CORPUSCULAR HGB CONC 32.8 g/dL (32.0-36.0); MEAN CORPUSCULAR VOLUME 77 fl (80-97); MONOCYTES % (AUTO) 5.9 % (3-13); PLATELET COUNT 288 10^3/uL (150-450); RED BLOOD COUNT 5.18 10^6/uL (3.72-5.28); RED CELL DISTRIBUTION WIDTH 16.9 % (11.5-14.0); SEGMENTED NEUTROPHILS % (AUTO) 55.7 % (42-78); TOTAL CELLS COUNTED % (AUTO) 100 %; WHITE BLOOD COUNT 7.5 10^3/uL (4.0-10.5)
[2017-04-26 20:51] LABS: APPEARANCE,URINE CLOUDY; BILIRUBIN,URINE NEGATIVE (NEGATIVE); COLOR,URINE AMBER; GLUCOSE, URINE NEGATIVE (NEGATIVE); KETONES,URINE NEGATIVE (NEGATIVE); LEUKOCYTE ESTERASE,URINE TRACE (NEGATIVE); NITRITE,URINE NEGATIVE (NEGATIVE); PROTEIN,URINE 100 mg/dL (NEGATIVE); URINE SPECIFIC GRAVITY 1.026
[2017-04-26 21:01] LABS: ALANINE AMINOTRANSFERASE 35 U/L (9-52); ALBUMIN 4.1 g/dL (3.5-5.0); ALKALINE PHOSPHATASE 74 U/L (38-126); ANION GAP 9 (5-19); ASPARTATE AMINO TRANSFERASE 19 U/L (14-36); BILIRUBIN,DIRECT 0.2 mg/dL (0.0-0.4); BILIRUBIN,TOTAL 0.4 mg/dL (0.2-1.3); BLOOD UREA NITROGEN 15 mg/dL (7-20); CALCIUM 10.1 mg/dL (8.4-10.2); CARBON DIOXIDE 27 mmol/L (22-30); CHLORIDE 105 mmol/L (98-107); GLUCOSE 92 mg/dL (75-110); POTASSIUM 3.8 mmol/L (3.6-5.0); SODIUM 140.8 mmol/L (137-145); TOTAL PROTEIN 6.7 g/dL (6.3-8.2)
[2017-04-26] MEDS ORDERED: CYCLOBENZAPRINE HCL 10 MG TABLET PO ONE (21:16)
--- NOTE | 2017-04-26 21:17 | ER Document Report ---
ED GI/ - General Chief Complaint: Flank Pain Stated Complaint: FLANK PAIN Time Seen by Provider: 04/26/17 20:21 Mode of Arrival: Ambulatory Notes: Patient is a 31-year-old female who presents emergency department after evaluation in April 23 with a chief complaint of right flank pain with associated hematuria for the past 6 days. Patient states that she has been taking her Cipro as directed and presents today since she took her last [place] and still having pain. She did not follow-up with her primary care doctor regarding this. She has any fevers, chills. She admits to nausea with vomiting , hematuria, mild pyuria but denies any urinary retention. Patient states that she still has her menstrual period but had one in the middle of the month. She denies any vaginal bleeding and states that she tampon recently to make sure that it was not that and states that there is no evidence of blood on the tampon. Past medical history significant for PTSD, insomnia, anxiety, conditions, pseudotumor cerebri with LOCK AND DAM EQUIPMENT REPAIRER shunt Past surgical history significant for LOCK AND [employer] EQUIPMENT REPAIRER shunt, 3, LAP-BAND placement and removal, cholecystectomy, multiple right ankle procedures Social history significant for current tobacco use, rare alcohol. Denies any IV drug use. Works which she is starting in April. Allergies to tramadol, Toradol, hydroxyzine. Takes Seroquel, Ambien and Klonopin at home. Primary care is with [facility] TRAVEL OUTSIDE OF THE [place] IN LAST 30 DAYS: No - Related Data Allergies/Adverse Reactions: hydroxyzine Allergy (Verified 04/23/17 09:49) ibuprofen Allergy (Verified 04/23/17 09:49) ketorolac [From Toradol] Allergy (Verified 04/23/17 09:49) tramadol Allergy (Verified 04/23/17 09:49) Past Medical History - General Information source: Patient - Social History Smoking Status: Current Every Day Smoker Chew tobacco use (# tins/day): No Frequency of alcohol use: None Family History: Reviewed & Not Pertinent Patient has suicidal ideation: No Patient has homicidal ideation: No Renal/ Medical History: Reports: Hx Kidney Stones. Denies: Hx Peritoneal Dialysis Psychiatric Medical History: Reports: Hx Depression Past Surgical History: Reports: Hx Section - x3, Hx Cholecystectomy, Hx Neurologic Surgery - LOCK AND DAM EQUIPMENT REPAIRER SHUNT, Hx Orthopedic Surgery - left ankle x1, right ankle x5, Hx Tubal Ligation Review of Systems - Review of Systems Constitutional: No symptoms reported Cardiovascular: No symptoms reported Respiratory: No symptoms reported Gastrointestinal: See HPI Genitourinary: See HPI Female Genitourinary: No symptoms reported Musculoskeletal: See HPI -: Yes All other systems reviewed and negative Physical Exam - Vital signs Vitals: Temp Pulse Resp BP Pulse Ox 98.0 F 100 20 125/76 96 04/26/17 20:13 04/26/17 20:13 04/26/17 20:13 04/26/17 20:13 04/26/17 20:13 - Notes Notes: PHYSICAL EXAM GENERAL: Alert, interacts well. HEAD: Normocephalic, atraumatic. LUNGS: Clear to auscultation bilaterally, no wheezes, rales, or rhonchi. No respiratory distress. HEART: Regular rate and rhythm. No murmurs, gallops, or rubs. ABDOMEN: Soft, nondistended, nontender. No guarding, rebound, or rigidity.. Bowel sounds present in all 4 quadrants. Female exam: Patient refusing Back: Pain reproducible patient in the right paralumbar musculature without evidence of CVA tenderness bilaterally EXTREMITIES: Moves all 4 extremities spontaneously. No edema, radial and dorsalis pedis pulses 2/4 bilaterally. No cyanosis. NEUROLOGICAL: Alert and oriented x4. Normal speech. PSYCH: Normal affect, normal mood. SKIN: Warm, dry, normal turgor. No rashes or lesions noted. Course - Re-evaluation Re-evalutation: 04/26/17 22:20 Patient is a 31-year-old female who is hemodynamically stable, no acute distress and afebrile. Presentation is consistent with persistent pyelonephritis. Review of the previous CT that was completed on April [address] Luz does not show any evidence of hydronephrosis or underlying kidney stone. Patient's presentation is consistent with right paralumbar muscle inflammation with underlying pyelonephritis with absence of CVA tenderness. Patient had improvement after pain medication and muscle relaxer. CBC is stable without evidence of leukocytosis or anemia. Chemistry without evidence of acute renal failure. Urinalysis with improvement in hematuria. Will continue patient's treatment for pyelonephritis with instruction to follow-up with her primary care provider for recheck at the end of the week. Patient agrees with plan and is stable for discharge home - Vital Signs Vital signs: Temp Pulse Resp BP Pulse Ox 98.2 F 88 18 125/72 97 04/26/17 22:50 04/26/17 22:50 04/26/17 22:50 04/26/17 22:50 04/26/17 22:50 - Laboratory Result Diagrams: 04/26/17 20:30 04/26/17 20:30 Laboratory results interpreted by me: 04/26/17 04/26/17 20:30 20:40 MCV 77 L MCH 25.4 L RDW 16.9 H Urine Protein 100 H Urine Blood LARGE H Urine Urobilinogen 4.0 H Ur Leukocyte Esterase TRACE H Discharge - Discharge Clinical Impression: Flank pain Hematuria Qualifiers: Hematuria type: gross Qualified Code(s): R31.0 - Gross hematuria Condition: Good Disposition: HOME, SELF-CARE Additional Instructions: You have been given a prescription for Cipro to give you a total course of 7 days. Please continue to take your antibiotic as you have been. PYELONEPHRITIS: Your evaluation shows evidence of pyelonephritis. This is an infection in the kidney. Typical symptoms are fever, pain in the flank, pain on urination, and frequent urination. Many cases of pyelonephritis can be treated at home. Hospital care may be necessary for patients who are very ill, or elderly or . Pyelonephritis is treated with antibiotics. Be sure to take all the medication as prescribed. Drink plenty of liquids (about three quarts per day) . You may take acetaminophen for fever. You should feel significantly improved within two days. You should have a recheck of your urine in about one week to insure that the infection is gone. Return for a re-examination if your symptoms worsen in any way -- such as high fever, shaking chills, severe weakness or dizziness, severe pain, or inability to pass your urine. PAIN MEDICATION INJECTION: You have received an injection of a pain medication. You should experience significant pain relief within 45 minutes. This drug is a narcotic - - it will impair your judgement, slow your reaction time and make you sleepy ( as well as relieve your pain). Narcotics also can cause nausea. You should not drive, work with machinery, or perform any task requiring mental alertness until all effects of the medication are gone -- six to eight hours. Do not take any alcohol, or sedatives, and do not take any other medication without checking with your physician. ANTINAUSEA MEDICATION: You have been given a medication to suppress nausea and vomiting. This type of medication can be given as a shot, pill, or suppository. It will usually last for many hours. Pills and shots usually last six to eight hours, suppositories last about 12 hours. For the typical illness, only one or two doses of the medication may be necessary. Mild lightheadedness may occur. This type of medicine can cause drowsiness. Do not drive or operate dangerous machinery while under its influence. Do not mix with alcohol. See your doctor at once if you have muscle spasms or tightness, or uncontrollable motions (particularly of the neck, mouth, or jaw). Persistent vomiting or severe lightheadedness should also be evaluated by the physician. ANTIBIOTIC THERAPY: You have been given an antibiotic prescription. It's important that you take all the medication, unless instructed otherwise by your physician. Failure to complete the entire course can result in relapse of your condition. Common side effects of antibiotics include nausea, intestinal cramping, or diarrhea. Women may develop vaginal yeast infections, and babies can get yeast (thrush) in the mouth following the use of antibiotics. Contact your physician if you develop significant side effects from this medication. Allergy to this antibiotic can result in hives, wheezing, faintness, or itching. If symptoms of allergy occur, stop the medication and call the doctor. CIPROFLOXACIN: You have been given an antibacterial agent, ciprofloxacin (Cipro). This medicine is not related to the penicillins, sulfas, cephalosporins, or tetracyclines. It is often given to patients who are allergic to these drugs. It has been chosen for you either because other drugs are not appropriate, or because of the nature of your problem. Cipro should not be taken with antacids, as these can decrease its effectiveness. It can be taken without regard to meals. CIPRO SHOULD NOT BE TAKEN BY CHILDREN, NURSING WOMEN, OR WOMEN. Although Cipro is usually well-tolerated, common side effects can include nausea and diarrhea. Contact your doctor if you experience any unusual symptoms while on this medication, such as joint pain or swelling, shortness of breath, wheezing, faintness, or hives. USE OF ACETAMINOPHEN (Tylenol): Acetaminophen may be taken for pain relief or fever control. It's much safer than aspirin, offering a wider range of "safe" dosages. It is safe during . Some brand names are Tylenol, Panadol, Datril, Anacin 3, Tempra, and Liquiprin. Acetaminophen can be repeated every four hours. The following are maximum recommended dosages: >89 pounds or adults 650 mg to 900 mg Acetaminophen can be repeated every four hours. Maximum dose not to exceed 4000 mg a day. ORAL NARCOTIC MEDICATION: You have been given a prescription for pain control. This medication is a narcotic. It's best taken with food, as nausea can result if taken on an empty stomach. Don't operate machinery or drive within six hours of taking this medication. Do not combine this medicine with alcohol, or with any medication which can cause sedation (such as cold tablets or sleeping pills) unless you get permission from the physician. Narcotics tend to cause constipation. If possible, drink plenty of fluids and eat a diet high in fiber and fruits. Please be aware that prescription narcotics also have the potential for abuse. People become addicted to these medications because of the general sense of wellbeing that they induce. This feeling along with a significant reduction in tension, anxiety, and aggression provides a stimulating seductive quality to these drugs. Once your pain is under control, we encourage you to discard your unused narcotics. FOLLOW-UP CARE: If you have been referred to a physician for follow-up care, call the physician s office for an appointment as you were instructed or within the next two days. If you experience worsening or a significant change in your symptoms, notify the physician immediately or return to the Emergency Department at any time for re-evaluation. Prescriptions: Ciprofloxacin HCl [Cipro 500 mg Tablet] 500 mg PO BID 2 Days #4 tablet Methocarbamol [Robaxin 750 mg Tablet] 750 mg PO ASDIR PRN #30 tablet PRN Reason: Forms: Parent Work Note Referrals: MAX MICHELLE MD [Primary Care Provider] - 04/30/17
[2017-04-26] MEDS ORDERED: HYDROCODONE/ACETAMINOPHEN 5-325 MG (6 TAB/ER DISP) PO PRN (22:26)
[2017-04-27 01:43] VITALS: BP 125/72
== END 2017-04-26 22:50 | disposition home or self-care (01) ==
LOC: ER 20:04
DX: R31.0 Gross hematuria (principal); R10.9 Unspecified abdominal pain; R11.2 Nausea with vomiting, unspecified; N39.0 Urinary tract infection, site not specified; F41.9 Anxiety disorder, unspecified; G47.00 Insomnia, unspecified; G93.2 Benign intracranial hypertension; Z98.84 Bariatric surgery status; F17.200 Nicotine dependence, unspecified, uncomplicated
CPT/HCPCS: 96376; 99284; 96361; 96374; 36415; 87086; 85025; 81025; 80053; 81001; J3490; J2270; J7030

== ENCOUNTER 2017-05-17 17:58 | Emergency (ER) | payer MEDICAID ==
[2017-05-17] MEDS ORDERED: NORMAL SALINE 1000 ML 1,000 ML IV ONE (19:07)
--- NOTE | 2017-05-17 19:10 | ER Document Report ---
ED Medical Screen (RME) - General Chief Complaint: Weak, possible med reaction Stated Complaint: DIZZY, POSSIBLE MEDICATION REACTION Time Seen by Provider: 05/17/17 19:07 Notes: Patient states she was started on Wellbutrin, prazosin, and propanolol today for rapid heart rate. She says her heart rate has been running in the 120s and 130s. She also states that she is being treated for depression and smoking cessation. She states after taking the medicines today she has been very dizzy and falling. 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 She states she cannot take any ibuprofen Toradol or tramadol. She states she took Tylenol and does not work. She states that she needs morphine or Dilaudid. TRAVEL OUTSIDE OF THE [place] IN LAST 30 DAYS: No - Related Data Allergies/Adverse Reactions: hydroxyzine Allergy (Verified 04/23/17 09:49) ibuprofen Allergy (Verified 04/23/17 09:49) ketorolac [From Toradol] Allergy (Verified 04/23/17 09:49) tramadol Allergy (Verified 04/23/17 09:49) Past Medical History - Social History Frequency of alcohol use: Rare Drug Abuse: None - Past Medical History Cardiac Medical History: Reports: Hx Hypertension Renal/ Medical History: Reports: Hx Kidney Stones. Denies: Hx Peritoneal Dialysis Psychiatric Medical History: Reports: Hx Depression Past Surgical History: Reports: Hx Section - x3, Hx Cholecystectomy, Hx Neurologic Surgery - WOMEN'S APPAREL SALESPERSON SHUNT, Hx Orthopedic Surgery - left ankle x1, right ankle x5, Hx Tubal Ligation Physical Exam - Vital signs Vitals: Temp Pulse Resp BP Pulse Ox 98.8 F 77 20 98/59 L 96 05/17/17 18:34 05/17/17 18:34 05/17/17 18:34 05/17/17 18:34 05/17/17 18:34 Course - Vital Signs Vital signs: Temp Pulse Resp BP Pulse Ox 98.8 F 77 20 98/59 L 96 05/17/17 18:34 05/17/17 18:34 05/17/17 18:34 05/17/17 18:34 05/17/17 18:34
[2017-05-17 19:53] LABS: ABSOLUTE BASOPHILS # (AUTO) 0.1 10^3/uL (0.0-0.2); ABSOLUTE EOSINOPHILS # (AUTO) 0.3 10^3/uL (0.0-0.6); ABSOLUTE LYMPHOCYTES (AUTO) 3.3 10^3/uL (0.5-4.7); ABSOLUTE MONOCYTES (AUTO) 0.5 10^3/uL (0.1-1.4); ABSOLUTE NEUT (AUTO) 4.6 10^3/uL (1.7-8.2); BASOPHILS % (AUTO) 0.7 % (0-2); EOSINOPHILS % (AUTO) 3.3 % (0-6); HEMATOCRIT 38.4 % (36.0-47.0); HEMOGLOBIN 12.5 g/dL (12.0-15.5); LYMPHOCYTES % (AUTO) 37.6 % (13-45); MEAN CORPUSCULAR HEMOGLOBIN 25.4 pg (27.0-33.4); MEAN CORPUSCULAR HGB CONC 32.5 g/dL (32.0-36.0); MEAN CORPUSCULAR VOLUME 78 fl (80-97); MONOCYTES % (AUTO) 5.3 % (3-13); PLATELET COUNT 260 10^3/uL (150-450); RED BLOOD COUNT 4.91 10^6/uL (3.72-5.28); SEGMENTED NEUTROPHILS % (AUTO) 53.1 % (42-78); TOTAL CELLS COUNTED % (AUTO) 100 %; WHITE BLOOD COUNT 8.8 10^3/uL (4.0-10.5)
[2017-05-17 20:04] LABS: APPEARANCE,URINE SLIGHTLY-CLOUDY; BILIRUBIN,URINE MODERATE (NEGATIVE); COLOR,URINE YELLOW; GLUCOSE, URINE NEGATIVE (NEGATIVE); KETONES,URINE NEGATIVE (NEGATIVE); LEUKOCYTE ESTERASE,URINE NEGATIVE (NEGATIVE); NITRITE,URINE NEGATIVE (NEGATIVE); PROTEIN,URINE NEGATIVE (NEGATIVE); URINE SPECIFIC GRAVITY 1.027
[2017-05-17 20:10] LABS: ALANINE AMINOTRANSFERASE 31 U/L (9-52); ALBUMIN 4.3 g/dL (3.5-5.0); ALKALINE PHOSPHATASE 80 U/L (38-126); ANION GAP 13 (5-19); ASPARTATE AMINO TRANSFERASE 15 U/L (14-36); BILIRUBIN,DIRECT 0.3 mg/dL (0.0-0.4); BILIRUBIN,TOTAL 0.4 mg/dL (0.2-1.3); BLOOD UREA NITROGEN 16 mg/dL (7-20); CALCIUM 9.3 mg/dL (8.4-10.2); CARBON DIOXIDE 22 mmol/L (22-30); CHLORIDE 107 mmol/L (98-107); GLUCOSE 93 mg/dL (75-110); POTASSIUM 4.3 mmol/L (3.6-5.0); SODIUM 141.6 mmol/L (137-145); TOTAL PROTEIN 7.3 g/dL (6.3-8.2)
[2017-05-17] MEDS ORDERED: ACETAMINOPHEN 325 MG TABLET PO ONE (20:17)
--- NOTE | 2017-05-17 20:17 | ER Document Report ---
ED General - General Chief Complaint: Weak, possible med reaction Stated Complaint: DIZZY, POSSIBLE MEDICATION REACTION Time Seen by Provider: 05/17/17 19:07 Mode of Arrival: Ambulatory Information source: Patient Notes: 31-year-old female history of pseudotumor cerebri presents with complaints of low blood pressure feel dizzy. Patient was started on 3 medications yesterday Wellbutrin process and and propranolol, notes her blood pressure was low and that she passed out. Patient denies any neurological deficits at this time notes that she feels better with IV fluids. Patient notes she has bruises from her falls TRAVEL OUTSIDE OF THE [place] IN LAST 30 DAYS: No - HPI Onset: This morning Onset/Duration: Sudden Quality of pain: Achy Severity: Mild Pain Level: 1 Associated symptoms: Body/muscle aches, Other - syncope Exacerbated by: Other - medications Relieved by: Other - iv fluids Similar symptoms previously: Yes Recently seen / treated by doctor: Yes - Related Data Allergies/Adverse Reactions: hydroxyzine Allergy (Verified 04/23/17 09:49) ibuprofen Allergy (Verified 04/23/17 09:49) ketorolac [From Toradol] Allergy (Verified 04/23/17 09:49) tramadol Allergy (Verified 04/23/17 09:49) Past Medical History - Social History Smoking Status: Current Every Day Smoker Cigarette use (# per day): Yes Chew tobacco use (# tins/day): No Smoking Education Provided: No Frequency of alcohol use: Rare Drug Abuse: None Family History: Reviewed & Not Pertinent Patient has suicidal ideation: No Patient has homicidal ideation: No - Past Medical History Cardiac Medical History: Reports: Hx Hypertension Renal/ Medical History: Reports: Hx Kidney Stones. 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 Denies recent illness. EENT: Denies eye, ear, throat, or mouth pain or symptoms. Denies nasal or sinus congestion or discharge. Denies throat, tongue, or mouth swelling or difficulty swallowing. CARDIOVASCULAR: Denies chest pain. Denies palpitations or racing or irregular heart beat. Denies ankle edema. RESPIRATORY: Denies cough, cold, or chest congestion. Denies shortness of breath, difficulty breathing, or wheezing. GASTROINTESTINAL: Denies abdominal pain or distention. Denies nausea, vomiting , or diarrhea. Denies blood in vomitus, stools, or per rectum. Denies black, tarry stools. Denies constipation. GENITOURINARY: Denies difficulty urinating, painful urination, burning, frequency, blood in urine, or discharge. FEMALE GENITOURINARY: Denies vaginal bleeding, heavy or abnormal periods, irregular periods. Denies vaginal discharge or odor. MUSCULOSKELETAL: admits to body aches HEMATOLOGIC : Denies easy bruising or bleeding. LYMPHATIC: Denies swollen, enlarged glands. NEUROLOGICAL: admits to snycope PSYCHIATRIC: Denies anxiety or stress. Denies depression, suicidal ideation, or homicidal ideation. ALL OTHER SYSTEMS REVIEWED AND NEGATIVE. PHYSICAL EXAMINATION: GENERAL: Well-appearing, well-nourished and in no acute distress. blood pressure has improved HEAD: Atraumatic, normocephalic. EYES: Pupils equal round and reactive to light, extraocular movements intact, conjunctiva are normal. ENT: Nares patent, oropharynx clear without exudates. Moist mucous membranes. NECK: Normal range of motion, supple without lymphadenopathy LUNGS: Breath sounds clear to auscultation bilaterally and equal. No wheezes rales or rhonchi. HEART: Regular rate and rhythm without murmurs ABDOMEN: Soft, nontender, nondistended abdomen. No guarding, no rebound. No masses appreciated. Female : deferred Musculoskeletal: Normal range of motion, no pitting or edema. No cyanosis. NEUROLOGICAL: Cranial nerves grossly intact. Normal speech, normal gait. Normal sensory, motor exams PSYCH: Normal mood, normal affect. SKIN: small echymosis bilateral knees, no abrasions Dictation was performed using [employer] voice recognition software Physical Exam - Vital signs Vitals: Temp Pulse Resp BP Pulse Ox 98.8 F 77 20 98/59 L 96 05/17/17 18:34 18 18:34 05/17/17 18:34 05/17/17 18:34 05/17/17 18:34 Course - Re-evaluation Re-evalutation: 05/17/17 23:57 Patient has no neurological deficits, her blood pressure initially was 90s over 50s, she was given IV fluids and blood pressures improved to 140s, she requests Dilaudid stating this is the only thing that helps her and that nothing else will help her bruises, I explained to her that we do not give narcotics for bruising such as this, and that her blood pressure is not high enough for her to be given narcotics at this time. Patient has been told to stop the propranolol presents in as it would compound the hypertension. Patient states she understands. Patient notes that she does want Dilaudid for her pain, I explained again that this was not appropriate and I will give her Tylenol, she is allergic to everything else, patient then demanded narcotics and I again explained that is not appropriate in her case. I have very high concerns of narcotic abuse given that she has specifically demanded Dilaudid on multiple visits already Otherwise neurologic she is stable blood pressures improved and she is appropriate for discharge After performing a Medical Screening Examination, I estimate there is LOW risk for INTRACRANIAL HEMORRHAGE, ISCHEMIC CVA, MALIGNANT DYSRHYTHMIA, ACUTE CORONARY SYNDROME, MENINGITIS, PULMONARY EMBOLISM, or SEPSIS thus I consider the discharge disposition reasonable. I have reevaluated this patient multiple times and no significant life threatening changes are noted. The patient and I have discussed the diagnosis and risks, and we agree with discharging home with close follow-up with the understanding that symptoms and presentations can change. We also discussed returning to the Emergency Department immediately if new or worsening symptoms occur. We have discussed the symptoms which are most concerning (e.g., changing or worsening pain, weakness, vomiting, fever) that necessitate immediate return. - Vital Signs Vital signs: Temp Pulse Resp BP Pulse Ox 97.6 F 71 14 111/47 L 97 05/17/17 21:03 05/17/17 21:03 05/17/17 21:03 05/17/17 21:03 05/17/17 21:03 - Laboratory Result Diagrams: 05/17/17 19:30 05/17/17 19:30 Laboratory results interpreted by me: 05/17/17 05/17/17 19:30 19:30 MCV 78 L MCH 25.4 L RDW 17.0 H Urine Bilirubin MODERATE H Urine Urobilinogen 4.0 H Discharge - Discharge Clinical Impression: Dizziness, Drug-seeking behavior Hypotension Qualifiers: Hypotension type: hypotension due to drug Qualified Code(s): I95.2 - Hypotension due to drugs Disposition: HOME, SELF-CARE Instructions: Hypotension ([facility]) Additional Instructions: Please withhold the propranolol and process and until evaluated by your physician
[2017-05-17 21:12] VITALS: BP 111/47
== END 2017-05-17 21:16 | disposition home or self-care (01) ==
LOC: ER 17:58
DX: I95.2 Hypotension due to drugs (principal); R42 Dizziness and giddiness; Z76.5 Malingerer [conscious simulation]; Z79.899 Other long term (current) drug therapy; F17.210 Nicotine dependence, cigarettes, uncomplicated
CPT/HCPCS: 99285; 96360; 36415; 85025; 81025; 80053; 81001; J7030

== ENCOUNTER 2017-05-18 10:08 | Emergency (ER) | payer MEDICAID ==
--- NOTE | 2017-05-18 10:57 | ER Document Report ---
ED Medical Screen (RME) - General TRAVEL OUTSIDE OF THE [place] IN LAST 30 DAYS: No - General Chief Complaint: Fainting Stated Complaint: DIZZINESS Time Seen by Provider: 05/18/17 10:52 Notes: Patient presents with dizziness that she states is present when sitting still feels like the room is spinning but is also worse when she walks. States she has fallen several times over the last several days. Has recently started taking Wellbutrin and propanolol and was seen yesterday for similar symptoms. She states she has not been taking the medication but her symptoms have continued so she comes back to the emergency department for evaluation. Patient does have a LOCUM TENENS PSYCHIATRIST shunt for pseudotumor cerebri placed in 2016. Denies any recent traumas or illnesses. Upon chart review patient had CBC CMP and urine performed yesterday with no concerning findings and test negative (ALFRED LOPEZ) - Related Data Allergies/Adverse Reactions: hydroxyzine Allergy (Verified 05/18/17 10:11) ibuprofen Allergy (Verified 05/18/17 10:11) ketorolac [From Toradol] Allergy (Verified 05/18/17 10:11) tramadol Allergy (Verified 05/18/17 10:11) Past Medical History - Social History Chew tobacco use (# tins/day): No Frequency of alcohol use: Occasional Drug Abuse: None Family history: Reviewed & Not Pertinent - Past Medical History Cardiac Medical History: Reports: Hx Hypertension Renal/ Medical History: Reports: Hx Kidney Stones. Denies: Hx Peritoneal Dialysis Psychiatric Medical History: Reports: Hx Depression Past Surgical History: Reports: Hx Section - x3, Hx Cholecystectomy, Hx Neurologic Surgery - LOCUM TENENS PSYCHIATRIST SHUNT, Hx Orthopedic Surgery - left ankle x1, right ankle x5, Hx Tubal Ligation Physical Exam - General General appearance: Appears well, Alert In distress: None - HEENT Head: Normocephalic, Atraumatic Conjunctiva: Normal Pupils: PERRL Neck: Normal - Respiratory Respiratory status: No respiratory distress Chest status: Nontender Breath sounds: Normal Chest palpation: Normal - Cardiovascular Rhythm: Regular Heart sounds: Normal auscultation Murmur: No Friction rub: No Gallop: None auscultated - Extremities General upper extremity: Normal inspection, Normal ROM General lower extremity: Normal inspection, Normal ROM - Neurological Neuro grossly intact: Yes Cognition: Normal Orientation: AAOx4 [place] Coma Scale Eye Opening: Spontaneous [place] Coma Scale Verbal: Oriented [place] Coma Scale Motor: Obeys Commands [place] Coma Scale Total: 15 Speech: Normal - Psychological Associated symptoms: Normal affect, Normal mood - Vital signs Vitals: Temp Pulse Resp BP Pulse Ox 98.5 F 72 16 110/50 L 95 05/18/17 10:21 05/18/17 10:21 05/18/17 10:21 05/18/17 10:21 05/18/17 10:21 - Vital Signs Vital signs: Temp Pulse Resp BP Pulse Ox 97.1 F 74 16 102/47 L 96 05/18/17 18:50 05/18/17 18:50 05/18/17 18:50 05/18/17 18:50 05/18/17 18:50 Scribe Documentation - Scribe Written by Evi:: Evi Cabezas, 11:01 acting as scribe for :: Zachary
--- NOTE | 2017-05-18 11:24 | ER Document Report ---
ED General - General Chief Complaint: Fainting Stated Complaint: DIZZINESS Time Seen by Provider: 05/18/17 10:52 Notes: 31-year-old female presents with 3 days of sleepiness lethargy dizziness difficulty walking with gait repeated falls and foggy vision. Constant. Increasing. She has a history of hydrocephalus/pseudotumor and had a shunt placed in [place]. It is programmable. The shunt is about a year old. She does not have a neurosurgeon here. She did hit her head when she fell and complains of headache also has pain in her thighs with bruising and is requesting pain medicine for this. She attributes her symptoms to starting prazosin Wellbutrin and propranolol which has occurred in the last couple of days and she does state that her symptoms are worse after she takes the doses of these meds. Seen here yesterday labs were normal. TRAVEL OUTSIDE OF THE [place] IN LAST 30 DAYS: No - Related Data Allergies/Adverse Reactions: hydroxyzine Allergy (Verified 05/18/17 10:11) ibuprofen Allergy (Verified 05/18/17 10:11) ketorolac [From Toradol] Allergy (Verified 05/18/17 10:11) tramadol Allergy (Verified 05/18/17 10:11) Past Medical History - Social History Smoking Status: Current Every Day Smoker Chew tobacco use (# tins/day): No Frequency of alcohol use: Occasional Drug Abuse: None Family History: Reviewed & Not Pertinent Patient has suicidal ideation: No Patient has homicidal ideation: No - Past Medical History Cardiac Medical History: Reports: Hx Hypertension Renal/ Medical History: Reports: Hx Kidney Stones. Denies: Hx Peritoneal Dialysis Psychiatric Medical History: Reports: Hx Depression Past Surgical History: Reports: Hx Section - x3, Hx Cholecystectomy, Hx Neurologic Surgery - MANAGER ALLIANCE SHUNT, Hx Orthopedic Surgery - left ankle x1, right ankle x5, Hx Tubal Ligation Review of Systems - Review of Systems Notes: REVIEW OF SYSTEMS GEN: Denies fever, chills, weight loss ENT: Denies sore throat, nasal discharge, ear pain EYES: Denies blurry vision, eye pain, discharge CV: Denies chest pain, palpitations, edema RESP: Denies cough, shortness of breath, wheezing GI: Denies abdominal pain, nausea, vomiting, diarrhea MSK: Thigh pain from falls, SKIN: Denies rash, skin lesions LYMPH: Denies swollen glands/lymph nodes NEURO: Headache dizziness gait instability slurred speech difficulty arise PSYCH: Denies depression, suicidal or homicidal ideation PHYSICAL EXAMINATION General: Obese. No acute distress, well-nourished Head: Atraumatic, normocephalic. Programmable shunt palpable beneath the scalp without tenderness along its course. ENT: Mouth normal, oropharynx moist, no exudates or tonsillar enlargement Eyes: Conjunctiva normal, pupils equal, lids normal Neck: No JVD, supple, no guarding CVS: Normal rate, regular rhythm, no murmurs Resp: No resp distress, equal and normal breath sounds bilaterally GI: Nondistended, soft, no tenderness to palpation, no rebound or guarding Ext: No deformities, no edema, normal range of motion in upper and lower ext Back: No CVA or midline TTP Skin: No rash, warm Lymphatic: No lymphadeopathy noted Neuro: Awake but slightly somnolent. Speech is slurred but otherwise fluent. Very very subtle disconjugate gaze. There is no nystagmus or upgaze paralysis. Remainder of cranial nerves normal. No pronator drift. Physical Exam - Vital signs Vitals: Temp Pulse Resp BP Pulse Ox 98.5 F 72 16 110/50 L 95 05/18/17 10:21 05/18/17 10:21 05/18/17 10:21 05/18/17 10:21 05/18/17 10:21 Course - Re-evaluation Re-evalutation: 05/18/17 13:56 Patient presents with nonspecific dizziness gait problems and falls in the setting of a MANAGER ALLIANCE shunt. I do not think these are medication side effects. She has some very mild disconjugate gaze. I did a CT scan which does not show hydrocephalus, and a shunt series which shows an intact shunt. That said I think that her shunt needs to be tapped and she needs neurosurgical level of care. Initially I called [facility] and spoke with her neurosurgeon who stated that he needed a call somewhere else because they do not deal with pseudotumor. Spoke with Dr. Jara from neurosurgery at [facility] who accepted then spoke with Dr. Graham in the ED who was the accepting physician of record for this patient. - Vital Signs Vital signs: Temp Pulse Resp BP Pulse Ox 98.5 F 72 16 110/50 L 95 02/20/18 12:50 05/18/17 12:50 05/18/17 12:50 05/18/17 12:50 05/18/17 12:50 Discharge - Discharge Clinical Impression: Ataxia Disposition: [facility] Admitting Provider: Hospitalist Unit Admitted: Medical Floor
--- NOTE | 2017-05-18 12:09 | RADIOLOGY REPORT (SQ) ---
EXAM DESCRIPTION: CT HEAD WITHOUT COMPLETED DATE/TIME: 05/18/2017 11:49 am REASON FOR STUDY: dshunt, dizzy COMPARISON: CT brain 03/06/2017, 01/31/2017, 07/17/2009 TECHNIQUE: Axial images acquired through the brain without intravenous contrast. Images reviewed wi th bone, brain and subdural windows. Images stored on PACS. All CT scanners at this facility use dose modulation, iterative reconstruction, and/or weight based d osing when appropriate to reduce radiation dose to as low as reasonably achievable (ALARA). [facility]: Dose Right [facility]: CareDose [facility]: Dose Right [facility]: Teradose 4D [facility]: Smart Technologies RADIATION DOSE: CT Rad equipment meets quality standard of care and radiation dose reduction techniq ues were employed. CTDIvol: 64.6 mGy. DLP: 1163 mGy-cm. mGy. LIMITATIONS: None. FINDINGS: VENTRICLES: Right-sided ventriculoperitoneal shunt is present, from a frontal approach. T he tip of the catheter is in the left lateral ventricle near the foramina of [place]. Lateral and 3rd ventricles are slit-like, stable compared to 03/06/2017, 01/31/2017 and 07/17/2009. CEREBRUM: No masses. No hemorrhage. No midline shift. No evidence for acute infarction. Normal gra y/white matter differentiation. No areas of low density in the white matter. CEREBELLUM: No masses. No hemorrhage. No alteration of density. No evidence for acute infarction. EXTRAAXIAL SPACES: No fluid collections. No masses. ORBITS AND GLOBE: No intra- or extraconal masses. Normal contour of globe without masses. CALVARIUM: No fracture. PARANASAL SINUSES: No fluid or mucosal thickening. SOFT TISSUES: No mass or hematoma. OTHER: There is a radiopaque vascular stent along the right transverse sinus best shown on bone windo w images 10-12. This similar compared to 03/06/2017 and 01/31/2017. IMPRESSION: No CT evidence of acute ischemic change, acute intracranial hemorrhage mass effect or mi dline shift. Stable slit-like lateral and 3rd ventricles with right frontal ventricular shunt, unchanged from 03/06 and 01/31/2017 Vascular stent along the right transverse sinus in the posterior fossa EVIDENCE OF ACUTE STROKE: NO. COMMENT: Quality ID # [id number]: Final reports with documentation of one or more dose reduction techniques (e.g., Automated exposure control, adjustment of the mA and/or kV according to patient size, use of iterative reconstruction technique) TECHNICAL DOCUMENTATION: JOB ID: [id number] [employer]- All Rights Reserved
--- NOTE | 2017-05-18 12:20 | RADIOLOGY REPORT (SQ) ---
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 TECHNIQUE: AP view of the chest and neck, AP view of the chest and AP/ lateral view the abdomen perf ormed to evaluate ventriculoperitoneal shunt tube. LIMITATIONS: None. FINDINGS: Ventriculoperitoneal shunt tube is present which enters the skull all in the right parieta l region with its tip in the midline. The tube descends along the anterior right neck neck, chest wa ll and abdomen. The tube enters the abdomen in the right mid abdomen and then crosses the midline wi th its tip in the left lower quadrant. Shunt tube appears to be intact. No areas of discontinuity o r kinking are identified. IMPRESSION: Normal appearing ventriculoperitoneal shunt. TECHNICAL DOCUMENTATION: JOB ID: [id number] [employer]- All Rights Reserved
[2017-05-18] MEDS ORDERED: MECLIZINE HCL 12.5 MG TABLET PO ONE (14:13)
[2017-05-18] MEDS ORDERED: FENTANYL CITRATE INJ/PF 100 MCG/2 ML AMPUL IV ONE (14:13)
[2017-05-18] MEDS ORDERED: OXYCODONE-ACETAMINOPHEN 5-325 MG TABLET PO ONE (15:07)
[2017-05-18] MEDS ORDERED: HYDROXYZINE PAMOATE 50 MG CAPSULE PO ONE (18:18)
[2017-05-18 18:51] VITALS: BP 102/47
--- NOTE | 2017-05-18 19:33 | ER Document Report ---
Doctor's Note Notes: 05/18/17 19:33 Patient reevaluated stable at this time awaiting transport
== END 2017-05-18 19:40 ==
LOC: ER 10:08
DX: R27.0 Ataxia, unspecified (principal); S09.90XA Unspecified injury of head, initial encounter; R55 Syncope and collapse; R51 Headache; M79.652 Pain in left thigh; M79.651 Pain in right thigh; W19.XXXA Unspecified fall, initial encounter; Z91.81 History of falling; F17.200 Nicotine dependence, unspecified, uncomplicated
CPT/HCPCS: 99285; 75809; 70450; J3490 ×2

== ENCOUNTER 2017-05-22 21:30 | Emergency (ER) | payer MEDICAID ==
[2017-05-23] MEDS ORDERED: HYDROCODONE/ACETAMINOPHEN 5-325 MG TABLET PO ONE (00:06)
--- NOTE | 2017-05-23 00:08 | ER Document Report ---
ED General - General Chief Complaint: Swelling of Lower Extremity Stated Complaint: ANKLE SWELLING Time Seen by Provider: 05/22/17 23:50 Notes: Patient is a 31-year-old female presents with complaint of pain in both lower extremities. Patient was recently admitted to [facility] as well as [facility] for evaluation of ataxia. 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 A FIELD SERVICE ENGINEER shunt was evaluated that time and seem to be working appropriately. The suspected was related to probe panel all. They took off propranolol and she has been doing better in regards. She did recently start having some swelling and edema to her legs and therefore she is come to the ER. She says she has had edema in the past fall and ankle surgeries and had to wear compression stockings. She has not been wearing compression stockings recently. She says because of the edema she does have some pain going into her feet. She denies any chest pain or difficulty breathing. No fevers. She did have a DVT many years ago after ankle surgery. She is currently not on any blood thinning medications. She denies any other complaints at this time. The triage note did mention nausea and vomiting but the patient says that was just related to severe pain and is currently not vomiting. TRAVEL OUTSIDE OF THE [place] IN LAST 30 DAYS: No - Related Data Allergies/Adverse Reactions: hydroxyzine Allergy (Verified 05/18/17 10:11) ibuprofen Allergy (Verified 05/18/17 10:11) ketorolac [From Toradol] Allergy (Verified 05/18/17 10:11) tramadol Allergy (Verified 05/18/17 10:11) Past Medical History - Social History Smoking Status: Never Smoker Chew tobacco use (# tins/day): No Frequency of alcohol use: None Drug Abuse: None Family History: Reviewed & Not Pertinent Patient has suicidal ideation: No Patient has homicidal ideation: No - Past Medical History Cardiac Medical History: Reports: Hx Hypertension Renal/ Medical History: Reports: Hx Kidney Stones. Denies: Hx Peritoneal Dialysis Psychiatric Medical History: Reports: Hx Depression Past Surgical History: Reports: Hx Section - x3, Hx Cholecystectomy, Hx Neurologic Surgery - FIELD SERVICE ENGINEER SHUNT, Hx Orthopedic Surgery - left ankle x1, right ankle x5, Hx Tubal Ligation Review of Systems - Review of Systems Notes: My Normal Review Basic REVIEW OF SYSTEMS: CONSTITUTIONAL : Denies fever, chills, or sweats. Denies recent illness. EENT: Denies eye, ear, throat, or mouth pain or symptoms. Denies nasal or sinus congestion. CARDIOVASCULAR: Denies chest pain. RESPIRATORY: Denies cough, cold, or chest congestion. Denies shortness of breath, difficulty breathing, or wheezing. GASTROINTESTINAL: Denies abdominal pain. Denies nausea, vomiting, or diarrhea. MUSCULOSKELETAL: Denies neck or back pain or joint pain or swelling. SKIN: Denies rash or skin lesions. NEUROLOGICAL: Denies altered mental status or loss of consciousness. Denies headache. Denies weakness or paralysis or loss of use of either side. Denies problems with gait or speech. Denies sensory or motor loss. ALL OTHER SYSTEMS REVIEWED AND NEGATIVE. Physical Exam - Vital signs Vitals: Temp Pulse BP Pulse Ox 99.0 F 95 124/69 96 05/22/17 22:05 05/22/17 22:05 05/22/17 22:05 05/22/17 22:05 - Notes Notes: General Appearance: Well nourished, alert, cooperative, no acute distress, no obvious discomfort. Well Appearing. Vitals: reviewed, See vital signs table. Lungs: No wheezing, No rales, No rhonci, No accessory muscle use, good air exchange bilaterally. Heart: Normal rate, Regular rythm, No murmur, no rub Abdomen: Normal BS, soft, No rigidity, No abdominal tenderness, No guarding, no rebound, no abdominal masses, no organomegaly Extremities: strength 5/5 in all extremities, good pulses in all extremities, patient does have appears to be some swelling to her lower legs and feet. Almost appears chronic however the patient says it is new. She has just trace pitting associated with it. She has good pulses. She has tenderness palpation mainly over her feet. There is no redness associated with it. No increased warmth. No signs of infection. Swelling is equal bilaterally. She has surgical scars on both ankles from previous ankle surgeries. Skin: warm, dry, appropriate color, no rash Neuro: speech clear, oriented x 3, normal affect, responds appropriately to questions. Course - Re-evaluation Re-evalutation: 05/23/17 00:35 I informed patient that being that she does have recent hospitalization the main thing that we have to do is rule out possible DVT. I informed her that we do not have venous Doppler ultrasound available now however we will first in the morning. Offered for her to stay here this morning for ultrasound. Patient said she prefers to go home and come back. She was consistently requesting something for pain. She says she has been taking Tylenol and Motrin at home. She says she needs some stronger. I did review her records. There is some concern that she may have some narcotic dependence. She has multiple medical allergies to things other than stronger opiate medications. She also has presented several times and she moved to the area for pain complaints. I informed her that I do not feel comfortable just prescribing her opiate pain medicine. Informed her that we typically do not prescribe opiate pain medicines for something such as this. I informed her that I will give her 1 dose of pain medicine here however I do not think it is appropriate send her home with pain medicine as there is no evidence of a severe Odell painful type of injury. I informed her that she really needs an ultrasound. I did talk to her about doing prophylactic treatment with a dose of Lovenox prior to her leaving so that she has some coverage so she comes back to have her ultrasound. I did review the risks and benefits of this. Patient refuses any type of blood thinning treatment until she knows for sure that she has or does not have a DVT in her leg. Patient says she will come back first thing in the morning. She does have a ride home. Patient has no further concerns or complaints at this time. Patient to return to ER immediately if she has chest pain, difficulty breathing, fevers, or any further concerns. Patient to return first thing in the need for venous duplex ultrasound of her legs. Dictation of this chart was performed using voice recognition software; therefore, there may be some unintended grammatical errors. - Vital Signs Vital signs: Temp Pulse Resp BP Pulse Ox 97.5 F 84 17 121/75 96 05/23/17 00:24 05/23/17 00:24 05/23/17 00:24 05/23/17 00:24 05/23/17 00:24 Discharge - Discharge Clinical Impression: Lower extremity edema Condition: Good Disposition: HOME, SELF-CARE Additional Instructions: Please return to the ER between 7 and 8 am for reevaluation and for order of the ultrasound to rule out clotting in the legs. Please return to the ER immediately if you develop chest pain, difficulty breathing, fevers, or feel unwell.
[2017-05-23 00:30] VITALS: BP 121/75
== END 2017-05-23 00:30 | disposition home or self-care (01) ==
LOC: ER 21:30
DX: R60.0 Localized edema (principal); M79.605 Pain in left leg; M79.606 Pain in leg, unspecified; I10 Essential (primary) hypertension; Z98.2 Presence of cerebrospinal fluid drainage device; Z86.718 Personal history of other venous thrombosis and embolism; Z98.890 Other specified postprocedural states; Z88.6 Allergy status to analgesic agent; Z88.5 Allergy status to narcotic agent; Z88.8 Allergy status to other drugs, medicaments and biological substances
CPT/HCPCS: 99284

== ENCOUNTER 2017-05-23 17:12 | Emergency (ER) | payer MEDICAID ==
[2017-05-23] MEDS ORDERED: FENTANYL CITRATE INJ/PF 100 MCG/2 ML AMPUL IM ONE (19:15)
--- NOTE | 2017-05-23 19:15 | ER Document Report ---
ED Medical Screen (RME) - General Chief Complaint: Leg Swelling Stated Complaint: LEG PAIN Time Seen by Provider: 05/23/17 18:59 Notes: She represents the emergency department for for recently discharged possibly 4 days ago from [facility] due to adverse effects of propanolol and hypotension. Two days ago she started experiencing bilateral lower extremity pain worse on the right than the left with swelling. She denies any recent traumas or falls. She is not on any blood thinners. She does have a history of blood clot in her leg after she had lower extremity surgery the past. Please see Dr. Mcintosh note from last night when patient presented for this pain. TRAVEL OUTSIDE OF THE [place] IN LAST 30 DAYS: No - Related Data Allergies/Adverse Reactions: hydroxyzine Allergy (Verified 05/23/17 18:44) ibuprofen Allergy (Verified 05/23/17 18:44) ketorolac [From Toradol] Allergy (Verified 05/23/17 18:44) tramadol Allergy (Verified 05/23/17 18:44) Past Medical History - Social History Chew tobacco use (# tins/day): No Frequency of alcohol use: Rare Drug Abuse: None Family history: Reviewed & Not Pertinent - Past Medical History Cardiac Medical History: Reports: Hx Hypertension Renal/ Medical History: Reports: Hx Kidney Stones. 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 No signs of erythema or infection or induration Course - Vital Signs Vital signs: Temp Pulse Resp BP Pulse Ox 99.1 F 99 18 134/84 H 96 05/23/17 17:21 05/23/17 17:21 05/23/17 17:21 05/23/17 17:21 05/23/17 17:21
[2017-05-23] MEDS ORDERED: OXYCODONE-ACETAMINOPHEN 5-325 MG TABLET PO ONE (19:56)
[2017-05-23] MEDS ORDERED: PROMETHAZINE HCL 25 MG TABLET PO ONE (19:56)
--- NOTE | 2017-05-23 19:59 | ER Document Report ---
ED Extremity Problem, Lower - General Chief Complaint: Leg Swelling Stated Complaint: LEG PAIN Time Seen by Provider: 05/23/17 18:59 Notes: Patient is a 31-year-old female that comes emergency department for chief complaint of pain in both lower extremities, worse on the left compared to the right. She states that for the past 2 days she has noticed increased swelling, she came last night but was unable to have Doppler ultrasound because there was no tech available at that time of night. Patient denies recent injury, states she has had ankle surgery on the right leg and she has had lower extremity swelling in the past, his started wearing compression stockings since yesterday when she was told to but has not noticed any difference. She did have a DVT years ago after ankle surgery, she has not been on blood thinner medications for years. She was recently admitted at [facility] for evaluation of ataxia, she does have a QUICK SKETCH ARTIST shunt which was evaluated and seemed to be working appropriately at that time. She was taken on propanolol and reports that she no longer has the ataxia. She smokes. She has had a tubal ligation. TRAVEL OUTSIDE OF THE [place] IN LAST 30 DAYS: No - Related Data Allergies/Adverse Reactions: hydroxyzine Allergy (Verified 05/23/17 18:44) ibuprofen Allergy (Verified 05/23/17 18:44) ketorolac [From Toradol] Allergy (Verified 05/23/17 18:44) tramadol Allergy (Verified 05/23/17 18:44) Past Medical History - General Information source: Patient - Social History Smoking Status: Current Some Day Smoker Chew tobacco use (# tins/day): No Frequency of alcohol use: Rare Drug Abuse: None Family History: Reviewed & Not Pertinent Patient has suicidal ideation: No Patient has homicidal ideation: No - Past Medical History Cardiac Medical History: Reports: Hx Hypertension Renal/ Medical History: Reports: Hx Kidney Stones. Denies: Hx Peritoneal Dialysis Psychiatric Medical History: Reports: Hx Depression Past Surgical History: Reports: Hx Section - x3, Hx Cholecystectomy, Hx Neurologic Surgery - QUICK SKETCH ARTIST SHUNT, Hx Orthopedic Surgery - left ankle x1, right ankle x5, Hx Tubal Ligation Review of Systems - Review of Systems Constitutional: No symptoms reported EENT: No symptoms reported Cardiovascular: See HPI Respiratory: No symptoms reported Gastrointestinal: No symptoms reported Genitourinary: No symptoms reported Female Genitourinary: No symptoms reported Musculoskeletal: See HPI Skin: See HPI Hematologic/Lymphatic: No symptoms reported Neurological/Psychological: No symptoms reported Physical Exam - Vital signs Vitals: Temp Pulse Resp BP Pulse Ox 99.1 F 99 18 134/84 H 96 05/23/17 17:21 05/23/17 17:21 05/23/17 17:21 05/23/17 17:21 05/23/17 17:21 Interpretation: Normal - General General appearance: Appears well In distress: None - HEENT Head: Normocephalic, Atraumatic Eyes: Normal Pupils: PERRL - Respiratory Respiratory status: No respiratory distress Chest status: Nontender Breath sounds: Normal. No: Decreased air movement, Wheezing Chest palpation: Normal - Cardiovascular Rhythm: Regular. No: Tachycardia Heart sounds: Normal auscultation, S1 appreciated, S2 appreciated Murmur: No - Abdominal Inspection: Normal Distension: No distension Bowel sounds: Normal Tenderness: Nontender. No: Tender, Guarding - Back Back: Normal, Nontender - Extremities General upper extremity: Normal inspection, Nontender, Normal color, Normal ROM , Normal temperature General lower extremity: Other - Generalized mild tenderness over the anterior distal tibial areas with minimal soft tissue swelling, no overt edema, no erythema, abnormal heat, normal range of motion of the ankles. Normal capillary refill and distal neurovascular exam. Normal lower extremity exam otherwise. - Neurological Neuro grossly intact: Yes Cognition: Normal Orientation: AAOx4 Judy Coma Scale Eye Opening: Spontaneous [place] Coma Scale Verbal: Oriented Judy Coma Scale Motor: Obeys Commands Judy Coma Scale Total: 15 Speech: Normal Motor strength normal: LUE, RUE, LLE, RLE Sensory: Normal - Psychological Associated symptoms: Other - Patient becomes emotional easily and talks persistently - Skin Skin Temperature: Warm Skin Moisture: Dry Skin Color: Normal Course - Re-evaluation Re-evalutation: Patient with minimal bilateral lower extremity swelling with no significant edema, can ambulate without difficulty, has normal distal pulses and sensation. Dopplers of both legs with no evidence of DVT or SVT, x-ray of the right ankle shows stable hardware with no concerning abnormalities. Patient with clear lungs, no shortness of breath, no dyspnea on exertion, no orthopnea, no evidence of congestive heart failure. Vital signs unremarkable. Patient was given pain medication while she was here. Discussed results and recommendations for patient. Patient states that her JORJE hose socks that she has tried hard to tight on her thighs, she asks for Yahir wraps for this, she was provided with these along with caution to not make them too tight. Discussed follow-up, return precautions, patient states understanding and agreement. - Vital Signs Vital signs: Temp Pulse Resp BP Pulse Ox 97.4 F 80 17 110/53 L 94 05/23/17 22:31 05/23/17 22:31 05/23/17 22:31 05/23/17 22:31 05/23/17 22:31 Discharge - Discharge Clinical Impression: Leg pain, bilateral Lower extremity pain Qualifiers: Laterality: bilateral Qualified Code(s): M79.604 - Pain in right leg Condition: Stable Disposition: HOME, SELF-CARE Additional Instructions: Your ultrasound does not show any blood clots in your legs. The x-rays show stable hardware with no abnormal findings noted. Make sure you get enough protein in your diet, elevate your legs, use compression stockings or bandages as discussed. Follow-up with primary care for additional management. Return for any concerning or worsening symptoms including redness, increased swelling, shortness of breath, fever 100.4 or greater, or any other concerning symptoms.
--- NOTE | 2017-05-23 21:09 | RADIOLOGY REPORT (SQ) ---
EXAM DESCRIPTION: ANKLE RIGHT COMPLETE COMPLETED DATE/TIME: 05/23/2017 8:50 pm REASON FOR STUDY: ankle pain/swelling, multiple surgeries, ? injury COMPARISON: None. NUMBER OF VIEWS: Three views. TECHNIQUE: AP, lateral, and oblique radiographic images acquired of the right ankle. LIMITATIONS: None. FINDINGS: MINERALIZATION: Normal. BONES: No acute fracture or dislocation. Distal arthrodesis hardware is intact. . JOINTS: No effusions. SOFT TISSUES: No significant soft tissue swelling. No foreign body. OTHER: No other significant finding. IMPRESSION: NO RADIOGRAPHIC EVIDENCE OF ACUTE INJURY. TECHNICAL DOCUMENTATION: JOB ID: [id number] [place]-72 2010 [employer]- All Rights Reserved Reading location - IP/workstation name: [email or web address]
--- NOTE | 2017-05-23 21:47 | RADIOLOGY REPORT (SQ) ---
EXAM DESCRIPTION: VENOUS BILATERAL LOWER COMPLETED DATE/TIME: 05/23/2017 9:22 pm REASON FOR STUDY: leg swelling COMPARISON: None. TECHNIQUE: Dynamic and static ferraro scale and color images acquired of both lower extremity venous sy stems. Selected spectral images acquired with additional compression and augmentation maneuvers. Imag es stored on PACS. LIMITATIONS: None. FINDINGS: RIGHT LEG COMMON FEMORAL AND FEMORAL: Normal phasicity, compression and augmentation. No visualized echogenic m aterial on ferraro scale. No defects on color images. POPLITEAL: Normal compression and augmentation. No visualized echogenic material on ferraro scale. No de fects on color images. CALF VESSELS: Normal compression and augmentation. No visualized echogenic material on ferraro scale. No defects on color image. GSV AND SSV: Normal compression. No visualized echogenic material on ferraro scale. No defects on color images. ANY DEEP VENOUS INSUFFICIENCY: Not evaluated. ANY EVIDENCE OF POPLITEAL CYST: No. OTHER: No other significant finding. LEFT LEG COMMON FEMORAL AND FEMORAL: Normal phasicity, compression and augmentation. No visualized echogenic m aterial on ferraro scale. No defects on color images. POPLITEAL: Normal compression and augmentation. No visualized echogenic material on ferraro scale. No de fects on color images. CALF VESSELS: Normal compression and augmentation. No visualized echogenic material on ferraro scale. No defects on color images. GSV AND SSV: Normal compression. No visualized echogenic material on ferraro scale. No defects on color images. ANY DEEP VENOUS INSUFFICIENCY: Not evaluated. ANY EVIDENCE POPLITEAL CYST: No. OTHER: No other significant finding. IMPRESSION: NO EVIDENCE DVT OR SVT IN EITHER LEG. TECHNICAL DOCUMENTATION: JOB ID: [id number] [place]-72 2010 [employer]- All Rights Reserved Reading location - IP/workstation name: [email or web address]
[2017-05-23] MEDS ORDERED: OXYCODONE HCL IR 5 MG TABLET PO ONE (22:11)
[2017-05-23] MEDS ORDERED: HYDROCODONE/ACETAMINOPHEN 5-325 MG (6 TAB/ER DISP) PO PRN (22:11)
[2017-05-23 22:44] VITALS: BP 110/53
== END 2017-05-23 22:45 | disposition home or self-care (01) ==
LOC: ER 17:12
DX: M79.604 Pain in right leg (principal); M79.605 Pain in left leg; M79.89 Other specified soft tissue disorders; F17.200 Nicotine dependence, unspecified, uncomplicated
CPT/HCPCS: 99284; 96374; 93970; 73610; J3010; J3490 ×2

== ENCOUNTER 2017-05-24 23:08 | Emergency (ER) | payer MEDICAID ==
[2017-05-25] MEDS ORDERED: HYDROMORPHONE HCL INJ/PF 2 MG/ML AMPULE IM ONE (01:17)
[2017-05-25] MEDS ORDERED: FUROSEMIDE 40 MG TABLET PO ONE (01:18)
[2017-05-25] MEDS ORDERED: ACETAMINOPHEN 325 MG TABLET PO ONE (01:18)
[2017-05-25] MEDS ORDERED: ONDANSETRON ODT 4 MG TAB (6 TAB/ER DISP) PO PRN (01:19)
[2017-05-25] MEDS ORDERED: ONDANSETRON 4 MG TAB.RAPDIS PO ONE (01:19)
[2017-05-25] MEDS ORDERED: HYDROCODONE/ACETAMINOPHEN 5-325 MG (6 TAB/ER DISP) PO PRN (01:21)
--- NOTE | 2017-05-25 01:24 | ER Document Report ---
ED General - General Chief Complaint: Leg Pain Stated Complaint: LOWER EXTREMETIES SWELLING WITH NUMBNESS Time Seen by Provider: 05/25/17 00:16 Notes: Patient is a 31-year-old female with frequent visits to the emergency department for lower extremity pain who presents with concerns of the same. Patient states for the past several weeks she has had a severe, constant, aching pain to bilateral feet. She notes the pain has been worsening since onset. She states that she has been trying Tylenol at home as well as Evergreen without any improvement. She states any pressure or ambulation worsens the pain. She notes associated nausea which she attributes to pain. During her most recent visit to the emergency room and she had a venous Doppler study as well as an x-ray which were unremarkable. TRAVEL OUTSIDE OF THE [place] IN LAST 30 DAYS: No - Related Data Allergies/Adverse Reactions: hydroxyzine Allergy (Verified 05/23/17 18:44) ibuprofen Allergy (Verified 05/23/17 18:44) ketorolac [From Toradol] Allergy (Verified 05/23/17 18:44) tramadol Allergy (Verified 05/23/17 18:44) Past Medical History - General Information source: Patient - Social History Smoking Status: Never Smoker Frequency of alcohol use: None Drug Abuse: None Lives with: Spouse/Significant other Family History: Reviewed & Not Pertinent Patient has suicidal ideation: No Patient has homicidal ideation: No - Past Medical History Cardiac Medical History: Reports: Hx Hypertension Renal/ Medical History: Reports: Hx Kidney Stones. Denies: Hx Peritoneal Dialysis Psychiatric Medical History: Reports: Hx Depression Past Surgical History: Reports: Hx Section - x3, Hx Cholecystectomy, Hx Neurologic Surgery - [employer] SHUNT, Hx Orthopedic Surgery - left ankle x1, right ankle x5, Hx Tubal Ligation Review of Systems - Review of Systems Notes: Constitutional: Negative for fever. HENT: Negative for sore throat. Eyes: Negative for visual changes. Cardiovascular: Negative for chest pain. Respiratory: Negative for shortness of breath. Gastrointestinal: Negative for abdominal pain, vomiting or diarrhea. Genitourinary: Negative for dysuria. Musculoskeletal: Positive for bilateral feet pain Skin: Negative for rash. Neurological: Negative for headaches, weakness or numbness. 10 point ROS negative except as marked above and in HPI. Physical Exam - Vital signs Vitals: Temp Pulse Resp BP Pulse Ox 97.7 F 91 18 139/84 H 96 05/24/17 23:15 05/24/17 23:15 05/24/17 23:15 05/24/17 23:15 05/24/17 23:15 Interpretation: Normal Notes: PHYSICAL EXAMINATION: GENERAL: Well-appearing, well-nourished and in no acute distress. HEAD: Atraumatic, normocephalic. EYES: Pupils equal round and reactive to light, extraocular movements intact, sclera anicteric, conjunctiva are normal. ENT: nares patent, oropharynx clear without exudates. Moist mucous membranes. NECK: Normal range of motion, supple without lymphadenopathy LUNGS: Breath sounds clear to auscultation bilaterally and equal. No wheezes rales or rhonchi. HEART: Regular rate and rhythm without murmurs ABDOMEN: Soft, nontender, normoactive bowel sounds. No guarding, no rebound. No masses appreciated. EXTREMITIES: Normal range of motion, 3+-4+ pitting edema that is equal and symmetric in the bilateral feet. No edema to the legs. NEUROLOGICAL: No focal neurological deficits. Moves all extremities spontaneously and on command. PSYCH: Highly anxious SKIN: Warm, Dry, normal turgor, no rashes or lesions noted. Course - Re-evaluation Re-evalutation: 05/25/17 01:19 Patient presents with several weeks of bilateral lower extremity pain and edema focal to her feet. On examination patient does have localized 3+ pitting edema to the bilateral feet but nothing above the level of the ankle. I suspect that this is actually secondary to multiple prior surgeries to both ankles with associated violation of the lymphatic and venous structures of the area during no surgical procedures. Patient is already had a venous Doppler study performed which was unremarkable as well as x-rays of the ankles which likewise were unremarkable. She has no symptoms to suggest an acute cellulitis. She has no edema to the more proximal areas of the lower extremities to suggest diagnose such as CHF, end-stage renal disease, liver congestion, or IVC occlusion. Patient has had multiple laboratory assessments over the past several weeks which have not demonstrated any LFT derangements or elevated creatinine. Will trial the patient on compression stockings which we have applied here in the emergency department, a short course of oral furosemide, topical Voltaren gel to the area, as well as strict return precautions. At this time will discharge with return precautions and follow-up recommendations. Verbal discharge instructions given a the bedside and opportunity for questions given. Medication warnings reviewed. Patient is in agreement with this plan and has verbalized understanding of return precautions and the need for primary care follow-up in the next 24-72 hours. - Vital Signs Vital signs: Temp Pulse Resp BP Pulse Ox 97.7 F 91 18 139/84 H 96 05/24/17 23:15 05/24/17 23:15 05/24/17 23:15 05/24/17 23:15 05/24/17 23:15 Discharge - Discharge Clinical Impression: Lower extremity edema Lower extremity pain Qualifiers: Laterality: bilateral Qualified Code(s): M79.604 - Pain in right leg Condition: Good Disposition: HOME, SELF-CARE Additional Instructions: Please wear the compression stockings continuously for at least the next 5 days. Take the Lasix that has been prescribed for the next 5 days. You may apply the topical Voltaren gel to the affected areas of pain as needed for discomfort that is not controlled by Tylenol or the Evergreen tablets he still have available to you at home. Return if you have worsening of your pain, spreading redness, persistent vomiting, fever, or any other symptoms that are worrisome to you. Prescriptions: Diclofenac Sodium [Voltaren] 100 gm TP TID PRN #100 gel..gm. PRN Reason: Furosemide [Lasix 40 mg Tablet] 40 mg PO QAM #5 tablet Referrals: MAX MICHELLE MD [Primary Care Provider] - Follow up as needed
[2017-05-25 02:29] VITALS: BP 132/79
== END 2017-05-25 02:02 | disposition home or self-care (01) ==
LOC: ER 23:08
DX: M79.89 Other specified soft tissue disorders (principal); M79.605 Pain in left leg; M79.604 Pain in right leg; I10 Essential (primary) hypertension; Z88.6 Allergy status to analgesic agent; Z87.442 Personal history of urinary calculi; Z90.49 Acquired absence of other specified parts of digestive tract; Z98.51 Tubal ligation status
CPT/HCPCS: 99283; 96372; J3490 ×2; S0119; J1170

== ENCOUNTER 2017-06-17 19:19 | Emergency (ER) | payer MEDICAID ==
[2017-06-17] MEDS ORDERED: OXYCODONE-ACETAMINOPHEN 5-325 MG TABLET PO ONE (20:04)
--- NOTE | 2017-06-17 20:08 | ER Document Report ---
HPI - HPI Pain Level: 4 Notes: Patient is a 31-year-old female with no significant past medical history who presents to the ED complaining of right hand pain status post injury prior to arrival. Patient states that she is working on her lawnmower when the ratchet tool hit her hand into the engine block. Patient noted immediate pain and swelling. Patient did take 1 of her pain medications of Aristes 4 hours ago. Patient states that she cannot tolerate anything to touch the swollen area to the posterior hand. Patient states that she is having difficulty moving her second and third digits because of the pain, but can still 'feel' in those fingers. No other concerns or complaints at this time. Denies any headache, fever, URI, sore throat, chest pain, palpitations, syncope, cough, shortness of breath, wheeze, dyspnea, abdominal pain, nausea/vomiting/diarrhea, urinary retention, dysuria, hematuria, or rash. - ROS Systems Reviewed and Negative: Yes All other systems reviewed and negative - MUSCULOSKELETAL Musculoskeletal: REPORTS: Extremity pain - rt hand pain Past Medical History - Social History Smoking Status: Current Every Day Smoker Chew tobacco use (# tins/day): No Frequency of alcohol use: Rare Drug Abuse: None Family History: Reviewed & Not Pertinent Patient has suicidal ideation: No Patient has homicidal ideation: No - Past Medical History Cardiac Medical History: Reports: Hx Hypertension Renal/ Medical History: Reports: Hx Kidney Stones. Denies: Hx Peritoneal Dialysis Psychiatric Medical History: Reports: Hx Depression Past Surgical History: Reports: Hx Section - x3, Hx Cholecystectomy, Hx Neurologic Surgery - [employer] SHUNT, Hx Orthopedic Surgery - left ankle x1, right ankle x5, Hx Tubal Ligation Vertical Provider Document - CONSTITUTIONAL Agree With Documented VS: Yes Notes: PHYSICAL EXAMINATION: GENERAL: Well-appearing, well-nourished and in no acute distress. LUNGS: Breath sounds clear to auscultation bilaterally and equal. No wheezes rales or rhonchi. HEART: Regular rate and rhythm without murmurs, rubs, gallops. Musculoskeletal: Rt hand: + swelling and ecchymosis to the posterior hand around the 2-3rd MCP joints and metacarpals. + tenderness. N/V intact distal. LROM to passive/active. Strength 4+/5. Extremities: No cyanosis, clubbing, or edema b/l. Peripheral pulses 2+. Capillary refill less than 3 seconds. NEUROLOGICAL: Normal speech, normal gait. Normal sensory, motor exams PSYCH: Normal mood, normal affect. SKIN: Warm, Dry, normal turgor, no rashes or lesions noted. - INFECTION CONTROL TRAVEL OUTSIDE OF THE [place] IN LAST 30 DAYS: No Course - Re-evaluation Re-evalutation: 06/17/17 21:40 Patient is an afebrile, well-hydrated, 31-year-old female who presents to the ED with a right hand contusion. Vitals are acceptable. PE is otherwise unremarkable for any neurovascular compromise, obvious tendon/ligament rupture, obvious fracture/dislocation, septic joint. X-ray was unremarkable for any acute pathology. Patient states that she cannot tolerate any splints or compression on the hand at this time. No other labs or imaging warranted at this time based on H&P. Pt is allergic to NSAIDs. Pt does have significant swelling and bruising and does appear to be in pain. I will send her home with a Pontis dispense pack. Reviewed with patient that I normally do not send anyone home with narcotis w/o significant objective findings, but I do believe her pain at this time based on H&P. Conservative measures otherwise for symptoms. Cool compresses placed today as well. Recheck with your PCM in 3-5 days. Consider consult with orthopedic/physical therapy. Return to the ED with any worsening/concerning symptoms otherwise as reviewed discharge. Patient is in agreement. - Vital Signs Vital signs: Temp Pulse Resp BP Pulse Ox 97.8 F 106 H 149/94 H 97 06/17/17 19:37 06/17/17 19:37 06/17/17 19:37 06/17/17 19:37 Discharge - Discharge Clinical Impression: Right hand pain Condition: Stable Disposition: HOME, SELF-CARE Instructions: Contusion ([facility]) Additional Instructions: Rest, Ice, Compression, Elevation Tylenol as needed Light stretches daily Strength exercises as able Moist heat and massage may help F/u with your PCP in 3-5 days for a recheck Consider consult(s) with Orthopedics/physical therapy for ongoing/worsening symptoms Return to the ED with any worsening symptoms and/or development of fever, headache, chest pain, palpitations, syncope, shortness of breath, trouble breathing, abdominal pain, n/v/d, muscle weakness/paralysis, numbness/tingling, swelling, redness, or other worsening symptoms that are concerning to you. Forms: Elevated Blood Pressure, Smoking Cessation Education Referrals: [facility] [Provider Group] - Follow up as needed GREGG SILVA MD [Primary Care Provider] - Follow up in 3-5 days
--- NOTE | 2017-06-17 21:34 | RADIOLOGY REPORT (SQ) ---
EXAM DESCRIPTION: HAND RIGHT 3 VIEWS COMPLETED DATE/TIME: 06/17/2017 8:17 pm REASON FOR STUDY: right hand pain s/p injury COMPARISON: None. EXAM PARAMETERS: NUMBER OF VIEWS: Three views. TECHNIQUE: AP, lateral and oblique radiographic images acquired of the right hand. LIMITATIONS: None. FINDINGS: MINERALIZATION: Normal. BONES: No acute fracture or dislocation. No worrisome bone lesions. JOINTS: No effusions. SOFT TISSUES: Mild soft tissue swelling. No foreign body. OTHER: No other significant finding. IMPRESSION: No fracture identified. TECHNICAL DOCUMENTATION: JOB ID: [id number] [place]-72 2010 [employer]- All Rights Reserved Reading location - IP/workstation name: [email or web address]
[2017-06-17] MEDS ORDERED: HYDROCODONE/ACETAMINOPHEN 5-325 MG (6 TAB/ER DISP) PO PRN (21:40)
[2017-06-17 22:00] VITALS: BP 113/84
== END 2017-06-17 22:01 | disposition home or self-care (01) ==
LOC: ER 19:19
DX: M79.641 Pain in right hand (principal); F17.200 Nicotine dependence, unspecified, uncomplicated; Z90.49 Acquired absence of other specified parts of digestive tract; Z98.2 Presence of cerebrospinal fluid drainage device; I10 Essential (primary) hypertension; Z87.442 Personal history of urinary calculi; Z98.51 Tubal ligation status
CPT/HCPCS: 99283

== ENCOUNTER 2017-06-18 13:15 | Emergency (ER) | payer MEDICAID ==
[2017-06-18 13:27] VITALS: BP 125/81
--- NOTE | 2017-06-18 13:39 | ER Document Report ---
HPI - HPI Patient complains to provider of: Dorsal right hand injury Onset: Yesterday Onset/Duration: Sudden Pain Level: 5 Context: 31-year-old female was working on a lawnmower and the ratchet wrench slipped and caused her flexed right hand to hit the engine. She states it is more swollen today. She was given a dispensed pack of 6 Vicodin and no luis enrique wrap or splint Associated Symptoms: None Exacerbated by: Movement Relieved by: Denies Similar symptoms previously: Yes Recently seen / treated by doctor: Yes - ROS ROS below otherwise negative: Yes Systems Reviewed and Negative: Yes All other systems reviewed and negative Past Medical History - General Information source: Patient - Social History Smoking Status: Unknown if Ever Smoked Frequency of alcohol use: None Drug Abuse: None Lives with: Spouse/Significant other Family History: Reviewed & Not Pertinent - Past Medical History Cardiac Medical History: Reports: Hx Hypertension Renal/ Medical History: Reports: Hx Kidney Stones. Denies: Hx Peritoneal Dialysis Psychiatric Medical History: Reports: Hx Depression Past Surgical History: Reports: Hx Section - x3, Hx Cholecystectomy, Hx Neurologic Surgery - [employer] SHUNT, Hx Orthopedic Surgery - left ankle x1, right ankle x5, Hx Tubal Ligation Vertical Provider Document - CONSTITUTIONAL Agree With Documented VS: Yes Exam Limitations: No Limitations - INFECTION CONTROL TRAVEL OUTSIDE OF THE [place] IN LAST 30 DAYS: No - HEENT HEENT: Normal ENT Exam, Normocephalic - NECK Neck: Supple. negative: Lymphadenopathy-Left, Lymphadenopathy-Right - MUSCULOSKELETAL/EXTREMETIES Musculoskeletal/Extremeties: Tender - Dorsal right hand swelling in bruising over the distal second and third medical carpal., Edema, Eccymosis - NEURO Level of Consciousness: Awake, Alert Motor/Sensory: No Motor Deficit, No Sensory Deficit Course - Re-evaluation Re-evalutation: 06/18/17 14:19 I looked at the x-ray again is no fracture and the radiologist read it as negative. The patient states that the swelling has gotten bigger and she was only given a dispensed pack of 6 Vicodin. She is allergic to tramadol and Toradol and was told not to take Motrin. She states that her primary care [facility] clinic is not open today to give her more pain medicine. - Vital Signs Vital signs: Temp Pulse Resp BP Pulse Ox 97.7 F 102 H 20 125/81 98 06/18/17 13:22 06/18/17 13:22 06/18/17 13:22 06/18/17 13:22 06/18/17 13:22 Procedures - Immobilization Right Hand Time completed: 14:15 Pre-Proc Neuro Vasc Exam: Normal Immobilizer type: Volar splint, Sling Discharge - Discharge Clinical Impression: Contusion of right hand Qualifiers: Encounter type: initial encounter Qualified Code(s): S60.221A - Contusion of right hand, initial encounter Condition: Good Disposition: HOME, SELF-CARE Instructions: Contusion ([facility]), Temporary Sling ([facility]), Temporary Splint ([facility]) Additional Instructions: See the orthopedic doctor if the symptoms persist The splint this week Elevate Tylenol up to 4000 mg a day for pain Referrals: GREGG SILVA MD [Primary Care Provider] - Follow up as needed HOMER DALAL MD [ACTIVE STAFF] - Follow up as needed
== END 2017-06-18 14:59 | disposition home or self-care (01) ==
LOC: ER 13:15
PROC: 2W3EX1Z Immobilization of Right Hand using Splint (ICD-10-PCS; principal; 2017-06-18)
DX: S60.221A Contusion of right hand, initial encounter (principal); W22.09XA Striking against other stationary object, initial encounter; I10 Essential (primary) hypertension; Z87.442 Personal history of urinary calculi; Z90.49 Acquired absence of other specified parts of digestive tract; Z98.2 Presence of cerebrospinal fluid drainage device; Z98.51 Tubal ligation status
CPT/HCPCS: 99283

== ENCOUNTER 2017-07-13 06:29 | Emergency (ER) | payer MEDICAID ==
[2017-07-13 06:50] VITALS: BP 144/98
[2017-07-13] MEDS ORDERED: DEXAMETHASONE SOD PHOS INJ 10 MG/1 ML VIAL IM ONE (06:56)
[2017-07-13] MEDS ORDERED: ACETAMINOPHEN 325 MG TABLET PO ONE (06:56)
--- NOTE | 2017-07-13 07:00 | ER Document Report ---
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 Patient notes that she was pushing a car yesterday and had left flank pain and right groin pain. Pt denies any fevers or chills, denies any nausea or vomiting. Pt denies any loss of bowel or bladder function. Pt denies any midline back pain. Patient denies any urinary complaints or saddle anesthesia TRAVEL OUTSIDE OF THE [place] IN LAST 30 DAYS: No - HPI Onset: Yesterday Onset/Duration: Sudden Quality of pain: Achy Severity: Mild Pain Level: 1 Associated symptoms: Body/muscle aches Exacerbated by: Movement, Walking Relieved by: Denies Similar symptoms previously: Yes - Seen at urgent care yesterday Recently seen / treated by doctor: Yes - Related Data Allergies/Adverse Reactions: hydroxyzine Allergy (Verified 06/18/17 13:16) ibuprofen Allergy (Verified 06/18/17 13:16) ketorolac [From Toradol] Allergy (Verified 06/18/17 13:16) tramadol Allergy (Verified 06/18/17 13:16) Past Medical History - Social History Smoking Status: Never Smoker Cigarette use (# per day): No Chew tobacco use (# tins/day): No Smoking Education Provided: No Family History: Reviewed & Not Pertinent Patient has suicidal ideation: No Patient has homicidal ideation: No - Past Medical History Cardiac Medical History: Reports: Hx Hypertension Renal/ Medical History: Reports: Hx Kidney Stones. Denies: Hx Peritoneal Dialysis Psychiatric Medical History: Reports: Hx Depression Past Surgical History: Reports: Hx Section - x3, Hx Cholecystectomy, Hx Neurologic Surgery - [employer] DIRECTOR SHUNT, Hx Orthopedic Surgery - left ankle x1, right ankle x5, Hx Tubal Ligation Review of Systems - Review of Systems Notes: REVIEW OF SYSTEMS: CONSTITUTIONAL : Denies fever, chills, or sweats. Denies recent illness. EENT: Denies eye, ear, throat, or mouth pain or symptoms. Denies nasal or sinus congestion or discharge. Denies throat, tongue, or mouth swelling or difficulty swallowing. CARDIOVASCULAR: Denies chest pain. Denies palpitations or racing or irregular heart beat. Denies ankle edema. RESPIRATORY: Denies cough, cold, or chest congestion. Denies shortness of breath, difficulty breathing, or wheezing. GASTROINTESTINAL: Denies abdominal pain or distention. Denies nausea, vomiting , or diarrhea. Denies blood in vomitus, stools, or per rectum. Denies black, tarry stools. Denies constipation. GENITOURINARY: Denies difficulty urinating, painful urination, burning, frequency, blood in urine, or discharge. FEMALE GENITOURINARY: Denies vaginal bleeding, heavy or abnormal periods, irregular periods. Denies vaginal discharge or odor. MUSCULOSKELETAL: Admits to left flank pain right groin pain SKIN: Denies rash, lesions or sores. HEMATOLOGIC : Denies easy bruising or bleeding. LYMPHATIC: Denies swollen, enlarged glands. NEUROLOGICAL: Denies confusion or altered mental status. Denies passing out or loss of consciousness. Denies dizziness or lightheadedness. Denies headache. Denies weakness or paralysis or loss of use of either side. Denies problems with gait or speech. Denies sensory loss, numbness, or tingling. Denies seizures. PSYCHIATRIC: Denies anxiety or stress. Denies depression, suicidal ideation, or homicidal ideation. ALL OTHER SYSTEMS REVIEWED AND NEGATIVE. PHYSICAL EXAMINATION: GENERAL: Well-appearing, well-nourished and in no acute distress. HEAD: Atraumatic, normocephalic. EYES: Pupils equal round and reactive to light, extraocular movements intact, conjunctiva are normal. ENT: Nares patent, oropharynx clear without exudates. Moist mucous membranes. NECK: Normal range of motion, supple without lymphadenopathy LUNGS: Breath sounds clear to auscultation bilaterally and equal. No wheezes rales or rhonchi. HEART: Tachycardic ABDOMEN: Soft, nontender, nondistended abdomen. No guarding, no rebound. No masses appreciated. Female : deferred Musculoskeletal: Normal range of motion, no pitting or edema. No cyanosis. Patient was able to ambulate to the emergency department but once here demanded a wheelchair to be brought back to the room, she is tender upon palpation of the flank NEUROLOGICAL: Cranial nerves grossly intact. Normal speech, normal gait. Normal sensory, motor exams PSYCH: Normal mood, normal affect. SKIN: Warm, Dry, normal turgor, no rashes or lesions noted. Dictation was performed using Dragon voice recognition software Physical Exam - Vital signs Vitals: Temp Pulse Resp BP Pulse Ox 97.8 F 120 H 16 144/98 H 98 07/13/17 06:30 07/13/17 06:30 07/13/17 06:30 07/13/17 06:30 07/13/17 06:30 Course - Re-evaluation Re-evalutation: 07/13/17 07:02 Patient has no cauda equina concerns overall looks well is in no distress. Patient will be given Decadron and Tylenol for her pain, and otherwise is well- appearing no distress, her tachycardia is chronic and is secondary to her being off her propranolol which she stated made her dizzy. Review of her previous multiple presentations to the emergency department are concerning for narcotic abuse 07/13/17 07:04 I was made aware that when the nurse went back into the room to give her her medications that she had "briskly run away". This appears to contradict her statement that she could not ambulate due to the pain, and is more consistent with narcotic abuse presentation Therefore my concerns for narcotic seeking behavior has increased greatly. Patient did leave prior to discharge papers being provided to her however I did discuss risks and benefits of her care and reasons for strict return precautions After performing a Medical Screening Examination, I estimate there is LOW risk for EXPANDING OR RUPTURED ABDOMINAL AORTIC ANEURYSM, CAUDA EQUINA SYNDROME, EPIDURAL MASS LESION, or HERNIATED DISK CAUSING SEVERE SPINAL STENOSIS, thus I consider the discharge disposition reasonable. I have reevaluated this patient multiple times and no significant life threatening changes are noted. The patient and I have discussed the diagnosis and risks, and we agree with discharging home and close follow-up. We also discussed returning to the Emergency Department immediately if new or worsening symptoms occur with the understanding that symptoms and presentations can change. We have discussed the symptoms which are most concerning (e.g., saddle anesthesia, urinary or bowel incontinence or retention, changing or worsening pain) that necessitate immediate return. - Vital Signs Vital signs: Temp Pulse Resp BP Pulse Ox 97.8 F 120 H 16 144/98 H 98 07/13/17 06:30 07/13/17 06:30 07/13/17 06:30 07/13/17 06:30 07/13/17 06:30 Discharge - Discharge Clinical Impression: narcotic seeking behavior Back pain Qualifiers: Back pain location: low back pain Chronicity: acute Back pain laterality: left Sciatica presence: without sciatica Qualified Code(s): M54.5 - Low back pain Condition: Stable Disposition: HOME, SELF-CARE Instructions: Low Back Pain ([facility]) Additional Instructions: Follow up with your physician tomorrow for further care or return to the ED IMMEDIATELY if symptoms worsen or new concerns occur. If you cannot afford to follow up with your primary care physician a list of low cost clinics have been provided at the end of your discharge papers as well.
== END 2017-07-13 07:10 | disposition left against medical advice (07) ==
LOC: ER 06:29
DX: M54.5 Low back pain (principal); Z76.5 Malingerer [conscious simulation]; R10.31 Right lower quadrant pain; M79.1 Myalgia; X50.9XXA Other and unspecified overexertion or strenuous movements or postures, initial encounter; I10 Essential (primary) hypertension
CPT/HCPCS: 99283

== ENCOUNTER 2017-07-17 20:06 | Emergency (ER) | payer MEDICAID ==
[2017-07-17] MEDS ORDERED: ACETAMINOPHEN 325 MG TABLET PO ONE (21:11)
[2017-07-17] MEDS ORDERED: ONDANSETRON 4 MG TAB.RAPDIS PO ONE (21:12)
--- NOTE | 2017-07-17 21:12 | ER Document Report ---
ED General - General Chief Complaint: Back Pain Stated Complaint: BACK PAIN Mode of Arrival: Ambulatory TRAVEL OUTSIDE OF THE [place] IN LAST 30 DAYS: No - HPI Notes: 32-year-old female presents today with complaints of muscle pain to lower back after she picked up a heavy TV approximately 3 weeks ago. Reports she has been seen by her primary care doctor, as prescribed and muscle relaxers, Vicodin and prednisone which has not been helpful with her pain relief. Worse pain is 6 out of 10, throbbing achy. Denies any chance of . Worse with time, nothing makes better. Not tried any heat, stretching for back pain. Denies fevers, chills, chest pain,palpitations, shortness of breath, dyspnea, nausea , vomiting, diarrhea, abdominal pain, hematuria,blurred vision, double vision, loss of vision, speech changes, LH, dizziness, syncope, headaches, wheezing, ST , URI, neck pain, weakness, bowel or bladder dysfunction, saddle anesthesia, numbness or tingling in bilateral upper or lower extremities equally, muscle paralysis, weakness in bilateral upper or lower extremities equally or rash. Denies IV drug use. - Related Data Allergies/Adverse Reactions: hydroxyzine Allergy (Verified 07/17/17 20:07) ibuprofen Allergy (Verified 07/17/17 20:07) ketorolac [From Toradol] Allergy (Verified 07/17/17 20:07) tramadol Allergy (Verified 07/17/17 20:07) Past Medical History - General Information source: Patient - Social History Smoking Status: Unknown if Ever Smoked Family History: Reviewed & Not Pertinent - Past Medical History Cardiac Medical History: Reports: Hx Hypertension Renal/ Medical History: Reports: Hx Kidney Stones. 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, Hx Orthopedic Surgery - left ankle x1, right ankle x5, Hx Tubal Ligation Review of Systems - Review of Systems Constitutional: No symptoms reported EENT: No symptoms reported Cardiovascular: No symptoms reported Respiratory: No symptoms reported Gastrointestinal: No symptoms reported Genitourinary: No symptoms reported Female Genitourinary: No symptoms reported Musculoskeletal: See HPI Skin: No symptoms reported Hematologic/Lymphatic: No symptoms reported Neurological/Psychological: No symptoms reported Physical Exam - Vital signs Vitals: Temp Pulse BP Pulse Ox 97.7 F 102 H 139/86 H 97 07/17/17 20:50 07/17/17 20:50 07/17/17 20:50 07/17/17 20:50 - Notes Notes: PHYSICAL EXAMINATION: GENERAL: Well-appearing, well-nourished and in no acute distress. HEAD: Atraumatic, normocephalic. EYES: Pupils equal round and reactive to light, extraocular movements intact, conjunctiva are normal. ENT: Nares patent, oropharynx clear without exudates. Moist mucous membranes. NECK: Normal range of motion, supple without lymphadenopathy LUNGS: Breath sounds clear to auscultation bilaterally and equal. No wheezes rales or rhonchi. HEART: Regular rate and rhythm without murmurs ABDOMEN: Soft, nontender, nondistended abdomen. No guarding, no rebound. No masses appreciated. Female : deferred Musculoskeletal: Normal range of motion, no pitting or edema. No cyanosis. No pain with flexion and extension. negative straight leg test. Normal hip rotation. DTR +2 in BLE equally. Strength 5 out of 5 both distally and proximally to bilateral lower extremities normal motor and sensory function in BLE equally. Distal pulses + 2 BLE equally. Noted paraspinal tenderness near L2 and L3. No spinal tenderness. No CVA tenderness bilaterally. Femoral pulses + 2 bilaterally and equally. No abrasions, scars, lacerations, ecchymosis of any recent trauma. normal gait. NEUROLOGICAL: Cranial nerves grossly intact. Normal speech, normal gait. Normal sensory, motor exams PSYCH: Normal mood, normal affect. SKIN: Warm, Dry, normal turgor, no rashes or lesions noted. Course - Re-evaluation Re-evalutation: 07/17/17 22:53 Healthy 32-year-old female resents for persistent back pain after she picked up a have a TV approximately 3 weeks ago. Seen by her primary care doctor is [place] prescribed her a muscle relaxer and Vicodin. Due to the fact that the patient drove here, will give her one [place] 5 mg, 325mg to go home with. Patient does not have any lumbar spine tenderness is noted lumbar paraspinal tenderness on palpation, straight leg test negative bilaterally, no radiological imaging is indicated at this time. At this time will discharge with return precautions and follow-up recommendations. Verbal discharge instructions given a the bedside and opportunity for questions given. Medication warnings reviewed. Patient is in agreement with this plan and has verbalized understanding of return precautions and the need for primary care follow-up in the next 24-72 hours. After performing a Medical Screening Examination, I estimate there is LOW risk for EXPANDING OR RUPTURED ABDOMINAL AORTIC ANEURYSM, CAUDA EQUINA SYNDROME, EPIDURAL MASS ABSCESS OR LESION(S), OSTEOMYELITIS,PERSONAL HISTORY OF CANCER, IMMUNOSUPPERSSSION, HISTORY OF IV DRUG USE, FRACTURE, CORD COMPERSSION, CANCER, RETROPERITONEAL BLEED, SPINAL EPIDURAL HEMATOMA, or HERNIATED DISK CAUSING SEVERE SPINAL STENOSIS, thus I consider the discharge disposition reasonable. I have reevaluated this patient multiple times and no significant life threatening changes are noted. The patient and I have discussed the diagnosis and risks, and we agree with discharging home and close follow-up. We also discussed returning to the Emergency Department immediately if new or worsening symptoms occur with the understanding that symptoms and presentations can change. We have discussed the symptoms which are most concerning (e.g., saddle anesthesia, urinary or bowel incontinence or retention, changing or worsening pain) that necessitate immediate return. - Vital Signs Vital signs: Temp Pulse Resp BP Pulse Ox 97.7 F 102 H 139/86 H 97 07/17/17 20:50 07/17/17 20:50 07/17/17 20:50 07/17/17 20:50 Discharge - Discharge Clinical Impression: Muscle spasm Condition: Good Disposition: HOME, SELF-CARE Instructions: Muscle Strain ([facility]), Low Back Pain ([facility]), Warm Packs ([facility]) Additional Instructions: Muscle Relaxers Muscle relaxing medications are usually prescribed for acute muscle spasm or injury to the neck and back. They are often combined with antiinflammatory pain medication for increased relief. You may stop the muscle relaxer when the pain and stiffness have improved. Start the medication again if spasms recur. Muscle relaxers may cause drowsiness, especially with the first dose. Do not operate machinery or drive while under the effects of the medication. Most muscle relaxers last up to 24 hours. Do not combine the medication with alcohol.Muscle Strain You have strained a muscle -- torn the fibers within the muscle. This often occurs with strenuous exertion, or during an injury that suddenly stretches the muscle. The seriousness of a strain varies. Some strains heal within days, others cause problems for months. X-rays cannot show a muscle strain. X-rays are taken only if symptoms suggest that a fracture could be present. The usual treatment of a muscle strain is rest and ice packs. Sometimes, a sling, splint, or crutches may be necessary to rest the muscle. The muscle can be used again once pain subsides. Severe strains require a special exercise and stretching program to prevent permanent stiffness and disability. Your doctor will advise you if this will be necessary. Call the doctor immediately if pain or swelling becomes severe, or if numbness or discoloration develop. stop taking tazidine and take Flexeril as directed. Take [id number] Tylenol as needed. Follow-up with vocational services specialist needed. Apply heat 20 minutes on 20 minutes off several times a day to back. Do not drive, drink alcohol or operate heavy machinery while taking Flexeril. Could here already scheduled doctor's appointment on Wednesday, July 19. Please follow up with the Orthopedics [facility] [address] [place] [id number] Return immediately for any new or worsening symptoms. Follow up with primary care provider, call tomorrow to make followup appointment. Forms: Return to Work Referrals: ANA HAJI MD [ACTIVE STAFF] - Follow up in 1 week CECILIO OCHOA MD [COMMUNITY BASED STAFF] - Follow up as needed
[2017-07-17] MEDS ORDERED: HYDROCODONE/ACETAMINOPHEN 5-325 MG TABLET PO ONE (22:50)
[2017-07-17 23:37] VITALS: BP 112/72
== END 2017-07-18 | disposition home or self-care (01) ==
LOC: ER 20:06
DX: M62.830 Muscle spasm of back (principal); M54.9 Dorsalgia, unspecified; I10 Essential (primary) hypertension; Z79.899 Other long term (current) drug therapy
CPT/HCPCS: 99283; S0119

== ENCOUNTER 2017-07-23 21:44 | Emergency (ER) | payer MEDICAID ==
--- NOTE | 2017-07-23 23:41 | ER Document Report ---
ED General - General Mode of Arrival: Ambulatory Information source: Patient TRAVEL OUTSIDE OF THE [place] IN LAST 30 DAYS: No - General Chief Complaint: Burn Stated Complaint: RIGHT HAND INJURY Time Seen by Provider: 07/23/17 23:35 Notes: 32 y.o female presents to the ED s/p burn to her RT hand. Pt reports that she was frying chicken when the grease splashed up to her RT hand. Pt also notes a small area to her LT hand that also had a drop of grease burn the area. She states that she immediately placed her hand under cold water. She did not apply anything to the surface of the burn. Pt has no further complaints at this time. (ASHLEY LAYNE) - Related Data Allergies/Adverse Reactions: hydroxyzine Allergy (Verified 07/17/17 20:07) ibuprofen Allergy (Verified 07/17/17 20:07) ketorolac [From Toradol] Allergy (Verified 07/17/17 20:07) tramadol Allergy (Verified 07/17/17 20:07) Past Medical History - General Information source: Patient - Social History Smoking Status: Unknown if Ever Smoked Family History: Reviewed & Not Pertinent - Past Medical History Cardiac Medical History: Reports: Hx Hypertension Renal/ Medical History: Reports: Hx Kidney Stones. 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, Hx Orthopedic Surgery - left ankle x1, right ankle x5, Hx Tubal Ligation Review of Systems - Review of Systems Constitutional: No symptoms reported EENT: No symptoms reported Cardiovascular: No symptoms reported Respiratory: No symptoms reported Gastrointestinal: No symptoms reported Genitourinary: No symptoms reported Female Genitourinary: No symptoms reported Musculoskeletal: No symptoms reported Skin: Other - Burn to right and LT hands Hematologic/Lymphatic: No symptoms reported Neurological/Psychological: No symptoms reported -: Yes All other systems reviewed and negative Physical Exam - Vital signs Vitals: Temp Pulse Resp BP Pulse Ox 98.8 F 97 20 138/98 H 95 07/23/17 22:13 07/23/17 22:13 07/23/17 22:13 07/23/17 22:13 07/23/17 22:13 - Notes Notes: PHYSICal EXAM General: Alert, appears well. HEENT: Normocephalic. Atraumatic. PERRLA. Extraocular movements intact. Oropharynx clear. Neck: Supple. Respiratory: No respiratory distress. Abdominal: Normal Inspection. No distension. Extremities: Moves all four extremities. 1st degree madison to RT index, middle and fourth phalanges without palmar or circumferential involvement. Neurological: Cranial nerves II-XII grossly intact bilaterally. Normal cognition. AAOx4. Normal speech. Psychological: Normal affect. Normal Mood. Skin: 1st degree madison to the dorsal aspect of RT index, middle and fourth phalanges. No palmar involvement or circumferential involvement. (ASHLEY LAYNE) Course - Re-evaluation Re-evalutation: Patient is a 32-year-old female who had a grease splashed on her right hand this evening. Patient has first-degree madison to the dorsal aspect of her fingers. No involvement of palmar surface. No other areas affected. Patient was soaked in ice bath and then had dressing applied. She is to follow-up with her doctor and return if she has any worsening or concerning symptoms such as numbness, discharge, fever, or other concerns. States that her tetanus is up-to -date. Stable for discharge. (JAIME MUNOZ) - Vital Signs Vital signs: Temp Pulse Resp BP Pulse Ox 98.2 F 96 16 135/93 H 98 07/24/17 01:17 07/24/17 01:17 07/24/17 01:17 07/24/17 01:17 07/24/17 01:17 Discharge - Discharge Clinical Impression: First degree burn of hand Qualifiers: Encounter type: initial encounter Burn of hand location: multiple fingers excluding thumb Laterality: right Qualified Code(s): T23.131A - Burn of first degree of multiple right fingers (nail), not including thumb, initial encounter Condition: Stable Disposition: HOME, SELF-CARE Instructions: [place] ([facility]), Soap Cleansing ([facility]) Forms: Return to Work Referrals: KARAN ANGEL FNP-C [Primary Care Provider] - Follow up in 3-5 days Scribe Attestation: 07/24/17 01:33 I personally performed the services described in the documentation, reviewed and edited the documentation which was dictated to the scribe in my presence, and it accurately records my words and actions. (JAIME MUNOZ) Scribe Documentation - Scribe Written by Jackibe:: Evi Richards [id number] 07/23/17 acting as scribe for :: [employer]
[2017-07-24] MEDS ORDERED: DIPH/PERTUSS(ACELL)/TETANUS VAC/PF 0.5 ML SYR (>=10YO) IM ONE (00:25)
[2017-07-24] MEDS ORDERED: HYDROCODONE/ACETAMINOPHEN 5-325 MG (6 TAB/ER DISP) PO PRN (00:29)
[2017-07-24] MEDS ORDERED: OXYCODONE-ACETAMINOPHEN 5-325 MG TABLET PO ONE (00:32)
[2017-07-24 01:19] VITALS: BP 135/93
== END 2017-07-24 01:17 | disposition home or self-care (01) ==
LOC: ER 21:44
DX: T23.131A Burn of first degree of multiple right fingers (nail), not including thumb, initial encounter (principal); X10.2XXA Contact with fats and cooking oils, initial encounter; Y93.G3 Activity, cooking and baking; Z88.6 Allergy status to analgesic agent
CPT/HCPCS: 99283

== ENCOUNTER 2017-08-16 16:47 | Emergency (ER) | payer OTHER, MEDICAID ==
[2017-08-16] MEDS ORDERED: HYDROCODONE/ACETAMINOPHEN 5-325 MG TABLET PO ONE (19:37)
[2017-08-16] MEDS ORDERED: CYCLOBENZAPRINE HCL 10 MG TABLET PO ONE (19:38)
[2017-08-16] MEDS ORDERED: DIAZEPAM 5 MG TABLET PO ONE (19:39)
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
[2017-08-16] MEDS ORDERED: DIPH/PERTUSS(ACELL)/TETANUS VAC/PF 0.5 ML SYR (>=10YO) IM ONE (19:48)
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
[2017-08-16] MEDS ORDERED: OXYCODONE HCL IR 5 MG TABLET PO ONE (21:13)
[2017-08-16] MEDS ORDERED: HYDROCODONE/ACETAMINOPHEN 5-325 MG (6 TAB/ER DISP) PO PRN (21:15)
[2017-08-16 21:46] VITALS: BP 124/84
--- NOTE | 2017-08-17 07:36 | EKG REPORT ---
SEVERITY:- OTHERWISE NORMAL ECG - SINUS TACHYCARDIA : Confirmed by: Aung Stephens MD 17-Aug-2017 07:35:14
== END 2017-08-16 21:41 | disposition home or self-care (01) ==
LOC: ER 16:47
DX: S16.1XXA Strain of muscle, fascia and tendon at neck level, initial encounter (principal); S39.012A Strain of muscle, fascia and tendon of lower back, initial encounter; S20.219A Contusion of unspecified front wall of thorax, initial encounter; S80.812A Abrasion, left lower leg, initial encounter; S80.212A Abrasion, left knee, initial encounter; S09.90XA Unspecified injury of head, initial encounter; R51 Headache; M54.2 Cervicalgia; R07.89 Other chest pain; M54.6 Pain in thoracic spine; R19.8 Other specified symptoms and signs involving the digestive system and abdomen; V43.52XA Car driver injured in collision with other type car in traffic accident, initial encounter; R00.0 Tachycardia, unspecified; F17.200 Nicotine dependence, unspecified, uncomplicated; I10 Essential (primary) hypertension; Z23 Encounter for immunization; Z88.8 Allergy status to other drugs, medicaments and biological substances; Z88.6 Allergy status to analgesic agent; Z88.5 Allergy status to narcotic agent
CPT/HCPCS: 70450; 71046; 72110; 72125; 90471; 90715; 93005; 93010; 99285

== ENCOUNTER 2017-08-18 14:06 | Emergency (ER) | payer OTHER, MEDICAID ==
[2017-08-18] MEDS ORDERED: HYDROMORPHONE HCL 2 MG TABLET PO ONE (16:01)
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
[2017-08-18 16:49] VITALS: BP 114/73
== END 2017-08-18 17:11 | disposition home or self-care (01) ==
LOC: ER 14:06
DX: M54.2 Cervicalgia (principal); M25.519 Pain in unspecified shoulder; M54.9 Dorsalgia, unspecified; V87.7XXD Person injured in collision between other specified motor vehicles (traffic), subsequent encounter; Z79.899 Other long term (current) drug therapy; F17.200 Nicotine dependence, unspecified, uncomplicated; I10 Essential (primary) hypertension
CPT/HCPCS: 99283

== ENCOUNTER 2017-10-31 21:15 | Emergency (ER) | payer MEDICAID ==
--- NOTE | 2017-10-31 22:22 | RADIOLOGY REPORT (SQ) ---
EXAM DESCRIPTION: SHOULDER RIGHT 2 OR MORE VIEWS COMPLETED DATE/TIME: 10/31/2017 9:57 pm REASON FOR STUDY: pain with movement COMPARISON: None. NUMBER OF VIEWS: Three views. TECHNIQUE: Internal rotation, external rotation, and Y view images acquired of the right shoulder. LIMITATIONS: None. FINDINGS: MINERALIZATION: Normal. BONES: No acute fracture or dislocation. No worrisome bone lesions. JOINTS: No dislocation. VISUALIZED LUNGS AND RIBS: No pneumothorax. No rib fracture. SOFT TISSUES: No radiopaque foreign body. OTHER: No other significant finding. IMPRESSION: NO RADIOGRAPHIC EVIDENCE OF ACUTE INJURY. TECHNICAL DOCUMENTATION: JOB ID: [id number] [place]-72 2010 [employer]- All Rights Reserved Reading location - IP/workstation name: [email or web address]
--- NOTE | 2017-10-31 22:38 | ER Document Report ---
ED Extremity Problem, Upper - General Mode of Arrival: Ambulatory Information source: Patient TRAVEL OUTSIDE OF THE [place] IN LAST 30 DAYS: No <KANE THOMAS - Last Filed: 11/01/17 01:44> <JAIME MUNOZ - Last Filed: 11/01/17 03:22> - General Chief Complaint: Shoulder Pain Stated Complaint: SHOULDER PAIN Time Seen by Provider: 10/31/17 22:19 Notes: 32-year-old female presenting to the emergency department today with complaints of right shoulder pain. Patient states she moved her mattress a few days ago and she thinks this is what aggravated her shoulder. Patient mentions that at work she has to lift heavy things and she has pain when doing so. Patient denies any trauma. (KANE THOMAS) - Related Data Allergies/Adverse Reactions: hydroxyzine Allergy (Verified 10/31/17 22:08) ibuprofen Allergy (Verified 10/31/17 22:08) ketorolac [From Toradol] Allergy (Verified 10/31/17 22:08) tramadol Allergy (Verified 10/31/17 22:08) Past Medical History - General Information source: Patient - Social History Smoking Status: Current Every Day Smoker Cigarette use (# per day): Yes Frequency of alcohol use: Rare Drug Abuse: None Family History: Reviewed & Not Pertinent Patient has suicidal ideation: No Patient has homicidal ideation: No - Past Medical History Cardiac Medical History: Reports: Hx Hypertension Renal/ Medical History: Reports: Hx Kidney Stones. 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, Hx Orthopedic Surgery - left ankle x1, right ankle x5, Hx Tubal Ligation <KANE THOMAS - Last Filed: 11/01/17 01:44> Review of Systems - Review of Systems Constitutional: No symptoms reported EENT: No symptoms reported Cardiovascular: No symptoms reported Respiratory: No symptoms reported Gastrointestinal: No symptoms reported Genitourinary: No symptoms reported Female Genitourinary: No symptoms reported Musculoskeletal: See HPI, Joint pain - RUE Skin: No symptoms reported Hematologic/Lymphatic: No symptoms reported Neurological/Psychological: No symptoms reported -: Yes All other systems reviewed and negative <KANE THOMAS - Last Filed: 11/01/17 01:44> Physical Exam - Vital signs Interpretation: Normal - General General appearance: Appears well, Alert - HEENT Head: Normocephalic, Atraumatic Eyes: Normal Pupils: PERRL - Respiratory Respiratory status: No respiratory distress Chest status: Nontender Breath sounds: Normal Chest palpation: Normal - Cardiovascular Rhythm: Regular Heart sounds: Normal auscultation Murmur: No - Abdominal Inspection: Normal Distension: No distension Bowel sounds: Normal Tenderness: Nontender Organomegaly: No organomegaly - Back Back: Normal, Nontender - Extremities General upper extremity: Normal inspection, Normal color, Normal temperature General lower extremity: Normal inspection, Nontender, Normal color, Normal ROM , Normal temperature, Normal weight bearing. No: Melisa's sign Shoulder: Tender, Limited ROM - Pain with internal and external rotation, flexion, abduction. Tender to palpation over supraspinatus - Neurological Neuro grossly intact: Yes Cognition: Normal Orientation: AAOx4 Judy Coma Scale Eye Opening: Spontaneous Wright Coma Scale Verbal: Oriented Wright Coma Scale Motor: Obeys Commands Judy Coma Scale Total: 15 Speech: Normal Motor strength normal: LUE, RUE, LLE, RLE Sensory: Normal - Psychological Associated symptoms: Normal affect, Normal mood - Skin Skin Temperature: Warm Skin Moisture: Dry Skin Color: Normal <JAIME MUNOZ - Last Filed: 11/01/17 03:22> - Vital signs Vitals: Temp Pulse Resp BP Pulse Ox 99.0 F 111 H 20 139/91 H 98 10/31/17 21:33 10/31/17 21:33 10/31/17 21:33 10/31/17 21:33 10/31/17 21:33 Course <KANE THOMAS - Last Filed: 11/01/17 01:44> - Diagnostic Test Radiology reviewed: Reports reviewed <JAIME MUNOZ - Last Filed: 11/01/17 03:22> - Re-evaluation Re-evalutation: 11/01/17 Patient is a 32-year-old female who comes in complaining of right shoulder pain after lifting. States that it is painful to pick her arm up or if she tries to reach behind her back. Denies any trauma. Symptoms are consistent with rotator cuff injury. Patient has been given sling. To be discharged home with a prescription for Flexeril and is to follow-up with her doctor. No acute findings on x-ray. Return if any worsening or concerning symptoms. Of note no chest pain or trouble breathing. Stable for discharge. Understands agrees with plan. (JAIME MUNOZ) - Vital Signs Vital signs: Temp Pulse Resp BP Pulse Ox 98.6 F 105 H 21 H 134/89 H 99 10/31/17 22:52 10/31/17 22:52 10/31/17 22:52 10/31/17 22:52 10/31/17 22:52 Discharge <KANE THOMAS - Last Filed: 11/01/17 01:44> <JAIME MUNOZ - Last Filed: 11/01/17 03:22> - Discharge Clinical Impression: Shoulder injury Qualifiers: Encounter type: initial encounter Laterality: right Qualified Code(s): S49.91XA - Unspecified injury of right shoulder and upper arm, initial encounter Condition: Stable Disposition: HOME, SELF-CARE Instructions: Rotator Cuff Injury ([facility]), Temporary Sling ([facility]) Prescriptions: Cyclobenzaprine HCl [Flexeril 10 Mg Tablet] 10 mg PO BIDP PRN #30 tablet PRN Reason: Forms: Special Work Note, Return to Work, Elevated Blood Pressure Referrals: JOSE CASTREJON PA-C [Primary Care Provider] - Follow up as needed Scribe Attestation: 11/01/17 03:22 I personally performed the services described in the documentation, reviewed and edited the documentation which was dictated to the scribe in my presence, and it accurately records my words and actions. (JAIME MUNOZ) Scribe Documentation - Scribe Written by Evi:: Evi Funes, 11/01/2017 0156 acting as scribe for :: [employer] <KANE THOMAS - Last Filed: 11/01/17 01:44>
[2017-10-31 22:54] VITALS: BP 134/89
[2017-10-31] MEDS ORDERED: CYCLOBENZAPRINE HCL 10 MG TABLET PO ONE (23:51)
[2017-10-31] MEDS ORDERED: HYDROCODONE/ACETAMINOPHEN 5-325 MG (6 TAB/ER DISP) PO PRN (23:51)
== END 2017-11-01 00:12 | disposition home or self-care (01) ==
LOC: ER 21:15
DX: S49.91XA Unspecified injury of right shoulder and upper arm, initial encounter (principal); M25.511 Pain in right shoulder; X50.9XXA Other and unspecified overexertion or strenuous movements or postures, initial encounter; F17.210 Nicotine dependence, cigarettes, uncomplicated; I10 Essential (primary) hypertension; Z88.8 Allergy status to other drugs, medicaments and biological substances; Z88.6 Allergy status to analgesic agent; Z88.5 Allergy status to narcotic agent
CPT/HCPCS: 99283; 73030; J3490

== ENCOUNTER 2017-11-14 23:02 | Emergency (ER) | payer MEDICAID ==
[2017-11-14 23:22] VITALS: BP 146/87
[2017-11-14] MEDS ORDERED: HYDROCODONE/ACETAMINOPHEN 5-325 MG (6 TAB/ER DISP) PO PRN (23:41)
--- NOTE | 2017-11-14 23:48 | ER Document Report ---
ED Extremity Problem, Upper - General Chief Complaint: Shoulder Pain Stated Complaint: SHOULDER PAIN Time Seen by Provider: 11/14/17 23:40 Mode of Arrival: Ambulatory Information source: Patient Notes: 31-year-old female presents to ED for complaint of right shoulder pain. She states she was here 2 weeks ago for the same thing was instructed to follow-up with orthopedics but it got better so she did not follow-up. She states she was reaching up to put the cigarettes away tonight and the pain was extreme. She states she is not able to lift her arm now. TRAVEL OUTSIDE OF THE [place] IN LAST 30 DAYS: No - HPI Patient complains to provider of: Right, Shoulder Onset: Just prior to arrival Recent injury: Possibly Where: Work Quality of pain: Sharp, Stabbing Severity of pain: Moderate Pain Level: 4 Associated symptoms: None Exacerbated by: Movement, Exertion Relieved by: Rest, Positioning Similar symptoms previously: Yes Recently seen / treated by doctor: Yes - Related Data Allergies/Adverse Reactions: hydroxyzine Allergy (Verified 10/31/17 22:08) ibuprofen Allergy (Verified 10/31/17 22:08) ketorolac [From Toradol] Allergy (Verified 10/31/17 22:08) tramadol Allergy (Verified 10/31/17 22:08) Past Medical History - General Information source: Patient - Social History Smoking Status: Current Every Day Smoker Cigarette use (# per day): Yes - Half pack per day Chew tobacco use (# tins/day): No Smoking Education Provided: Yes - 4 minutes Frequency of alcohol use: Occasional Drug Abuse: None 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 Lives with: Spouse/Significant other - And children Family History: Reviewed & Not Pertinent Patient has suicidal ideation: No Patient has homicidal ideation: No - Past Medical History Cardiac Medical History: Reports: Hx Hypertension Pulmonary Medical History: Reports: None EENT Medical History: Reports: None Neurological Medical History: Reports: Other - Hydrocephalus Endocrine Medical History: Reports: None Renal/ Medical History: Reports: Hx Kidney Stones Malignancy Medical History: Reports: None GI Medical History: Reports: None Musculoskeletal Medical History: Reports Hx Musculoskeletal Deformity, Reports Hx Musculoskeletal Trauma Skin Medical History: Reports None Psychiatric Medical History: Reports: Hx Anxiety, Hx Depression Traumatic Medical History: Reports: Hx Fractures - Left ankle Infectious Medical History: Reports: None Past Surgical History: Reports: Hx Section - x3, Hx Cholecystectomy, Hx Orthopedic Surgery - left ankle x1, right ankle x5, Hx Tubal Ligation, 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 denies: Joint swelling Skin: No symptoms reported Hematologic/Lymphatic: No symptoms reported Neurological/Psychological: No symptoms reported -: Yes All other systems reviewed and negative Physical Exam - Vital signs Vitals: Temp Pulse Resp BP Pulse Ox 99.1 F 101 H 18 146/87 H 96 11/14/17 23:07 11/14/17 23:07 11/14/17 23:07 11/14/17 23:07 11/14/17 23:07 Interpretation: Normal - General General appearance: Appears well, Alert - HEENT Head: Normocephalic, Atraumatic Eyes: Normal Pupils: PERRL - Respiratory Respiratory status: No respiratory distress Chest status: Nontender Breath sounds: Normal Chest palpation: Normal - Cardiovascular Rhythm: Regular Heart sounds: Normal auscultation Murmur: No - Abdominal Inspection: Normal Distension: No distension Bowel sounds: Normal Tenderness: Nontender Organomegaly: No organomegaly - Back Back: Normal, Nontender - Extremities General upper extremity: Normal inspection, Normal color, Normal temperature General lower extremity: Normal inspection, Nontender, Normal color, Normal ROM , Normal temperature, Normal weight bearing. No: Melisa's sign Shoulder: Tender, Limited ROM - Due to pain. No: Abrasion, Deformity, Dislocation, Ecchymosis, Instability, Laceration Arm: Tender - Neurological Neuro grossly intact: Yes Cognition: Normal Orientation: AAOx4 Avery Coma Scale Eye Opening: Spontaneous Avery Coma Scale Verbal: Oriented Avery Coma Scale Motor: Obeys Commands Judy Coma Scale Total: 15 Speech: Normal Motor strength normal: LUE, RUE, LLE, RLE Sensory: Normal - Psychological Associated symptoms: Normal affect, Normal mood - Skin Skin Temperature: Warm Skin Moisture: Dry Skin Color: Normal Course - Re-evaluation Re-evalutation: 11/15/17 01:49 Patient was negative for any acute falls or injuries that would cause a bony change. She does have range of motion of the shoulder but is limited due to pain. Patient was treated with [place] dispense pack and a sling and instructed to follow-up with her primary doctor in the morning and get a referral for orthopedics as she states she has Medicaid and has to go to her primary doctor first. Discharge instructions discussed with patient concerning movement of the shoulder use of ice and warm packs and use the sling. Patient was able to verbalize understanding and agreement with treatment plan. - Vital Signs Vital signs: Temp Pulse Resp BP Pulse Ox 99.1 F 101 H 18 146/87 H 96 11/14/17 23:07 11/14/17 23:07 11/14/17 23:07 11/14/17 23:07 11/14/17 23:07 Procedures - Immobilization Right Shoulder Immobilizer type: Sling Performed by: GRETCHEN Post-Proc Neuro Vasc Exam: Normal Alignment checked and good: Yes Discharge - Discharge Clinical Impression: Right shoulder pain Qualifiers: Chronicity: unspecified Qualified Code(s): M25.511 - Pain in right shoulder Condition: Stable Disposition: HOME, SELF-CARE Additional Instructions: Shoulder Injury You have injured your shoulder. This usually results from stretching or tearing of the tendons during trauma. Time and protection are required in order to heal properly. Many injuries are quite disabling, and should be taken seriously. Initial treatment includes cold packs and a sling to rest the shoulder. The physician has assessed the seriousness of your injury, and has outlined a treatment plan. Understand that this treatment may change, depending on how you progress. If a re-examination was recommended, it is important that you follow up as instructed. Some shoulder injuries (such as partial tear of the rotator cuff) are only suspected after you've failed to improve. Call us if there's severe pain, numbness, or loss of function. Sling as Treatment A sling has been applied to protect the injury. This is adequate immobilization for this type of injury -- no cast or brace is required. Keep the sling on at all times until instructed to remove it by the doctor. Even though no cast or splint is needed, you must use the sling. If you use the arm too soon, it may not heal properly! If necessary, the sling can be adjusted for comfort. Return if you are encountering problems with the sling. MOTOR VEHICLE ACCIDENT: You may develop some soreness and stiffness over the next two days. Mild neck and back strain is common in auto accidents, and may not be painful until the muscle becomes inflamed. But if nothing is painful now, there is no fracture , and x-rays are not needed. If you develop pain over the next couple of days, treat each tender area. Apply cold packs directly to the painful spot. Rest. Antiinflammatory pain medication, such as ibuprofen, can decrease soreness and inflammation. Most of the time, these late-developing pains go away within a few days. Most patients are back at work or school within a week. The area might be little irritable for two or three weeks. You should call the doctor, or go to the hospital, if you develop severe neck, chest, or abdominal pain, repeated vomiting, severe lightheadedness or weakness, trouble breathing, numbness or weakness in any extremity, problems with your bladder or bowel, or pain radiating down an arm or leg. USE OF TYLENOL (ACETAMINOPHEN): Acetaminophen may be taken for pain relief or fever control. It's much safer than aspirin, offering a wider range of "safe" dosages. It is safe during . Some brand names are Tylenol, Panadol, Datril, Anacin 3, Tempra, and Liquiprin. Acetaminophen can be repeated every four hours. The following are maximum recommended dosages: WEIGHT Dose Drops Elixir Chewable( 80mg) (LBS.) drprs=droppers tsp=teaspoon 6 40 mg 0.4 ml (1/2) 6-11 80 mg 0.8 ml (full) tsp 1 tab 12-16 120 mg 1 1/2 drprs 3/4 tsp 1 1/2 tabs 17-23 160 mg 2 drprs 1 tsp 2 tabs 24-30 240 mg 3 drprs 1 1/2 tsp 3 tabs 30-35 320 mg 2 tsp 4 tabs 36-41 360 mg 2 1/4 tsp 4 1/2 tabs 42-47 400 mg 2 1/2 tsp 5 tabs 48-53 480 mg 3 tsp 6 tabs 54-59 520 mg 3 1/4 tsp 6 1/2 tabs 60-64 560 mg 3 1/2 tsp 7 tabs 65-70 600 mg 3 3/4 tsp 7 1/2 tabs 71-76 640 mg 4 tsp 8 tabs 77-82 720 mg 4 1/2 tsp 9 tabs 83-88 800 mg 5 tsp 10 tabs >89 pounds or adults 650 mg to 900 mg Acetaminophen can be repeated every four hours. Maximum dose not to exceed 4000 mg a day. These maximum recommended dosages are slightly higher than the dosages written on the product container, but these dosages are very safe and below the toxic dosage for acetaminophen. ICE PACKS: Apply ice packs frequently against the painful area. Many different schedules are recommended, such as "20 minutes on, 20 minutes off" or "one hour ice, two hours rest." If you need to work, you may need to go longer between ice treatments. You should plan to have the area ice packed AT LEAST one fourth of the time. The ice should be applied over the wrap, tape, or splint, or over a layer of cloth -- not directly against the skin. Some ice bags have a built-in cloth and can be put directly on the skin. WARM PACKS: After approximately two days, apply gentle heat (such as a heating pad or hot water bottle) for about 20 to 30 minutes about every two hours -- at least four times daily. Warmth and elevation will help you make a more rapid recovery , and will ease the pain considerably. Do not use HOT heat, and never apply heat for longer than 30 minutes. The continuous heat can invisibly damage skin and muscles -- even when no burn is seen on the surface. Damaged muscles can make you MORE sore. ORAL NARCOTIC MEDICATION: You have been given a Actacell dispense back for pain control. This medication is a narcotic. It's best taken with food, as nausea can result if taken on an empty stomach. Don't operate machinery or drive within six hours of taking this medication. Do not combine this medicine with alcohol, or with any medication which can cause sedation (such as cold tablets or sleeping pills) unless you get permission from the physician. Narcotics tend to cause constipation. If possible, drink plenty of fluids and eat a diet high in fiber and fruits. Exercise Program for the Shoulder Since the shoulder moves in so many directions, the joint attachment is weak. Muscles provide most of the stability to the shoulder. You must exercise your shoulder to prevent painful instability or stiffening. PASSIVE - These may be begun within a few days of the injury. While standing, lean forward, allowing the arm to hang down towards the floor. Move the arm in small circles while slowly twisting your chest towards and away from the hanging arm. Do this for one minute. ACTIVE - These may be performed when the doctor gives permission. Begin with the arms at the sides. Raise the arms forward (shoulder's width apart) until they reach shoulder level. Then slowly swing both arms back until they are aiming straight out away from each other. Then bring them forward again, and finally, lower them to your sides. Repeat 20 to 30 times. As you improve, put weights in your hands for the exercise. Start with one pound, and work up to 10 pounds. Never use more than is comfortable. Athletes may work up to 30 pounds. FOLLOW-UP CARE: If you have been referred to a physician for follow-up care, call the physician s office for an appointment as you were instructed or within the next two days. If you experience worsening or a significant change in your symptoms, notify the physician immediately or return to the Emergency Department at any time for re-evaluation. Forms: Elevated Blood Pressure, Smoking Cessation Education, Return to Work Referrals: JOSE CASTREJON PA-C [Primary Care Provider] - Follow up as needed HOMER DALAL MD [ACTIVE STAFF] - Follow up as needed
== END 2017-11-15 | disposition home or self-care (01) ==
LOC: ER 23:02
DX: M25.511 Pain in right shoulder (principal); F17.210 Nicotine dependence, cigarettes, uncomplicated; I10 Essential (primary) hypertension; Z88.6 Allergy status to analgesic agent; Z90.49 Acquired absence of other specified parts of digestive tract; Z98.51 Tubal ligation status; Z98.2 Presence of cerebrospinal fluid drainage device
CPT/HCPCS: 99283; L3650

== ENCOUNTER 2017-12-12 16:45 | Emergency (ER) | payer MEDICAID ==
[2017-12-12] MEDS ORDERED: MORPHINE SULFATE 10 MG/ML INJ IV ONE ×2 (19:04→22:43)
[2017-12-12] MEDS ORDERED: ONDANSETRON HCL INJ/PF 4 MG/2 ML SDV IV ONE (19:04)
--- NOTE | 2017-12-12 19:17 | ER Document Report ---
ED Medical Screen (RME) - General Chief Complaint: Headache Stated Complaint: HEADACHE Time Seen by Provider: 12/12/17 19:03 Mode of Arrival: Ambulatory Information source: Patient Notes: Patient presented to the ED complaining of headache, nausea and vomiting. Patient has a history of hydrocephalus and has a TUMBLER OPERATOR shunt in place. She thinks her TUMBLER OPERATOR shunt is blocked. I have greeted and performed a rapid initial assessment of this patient. A comprehensive ED assessment and evaluation of the patient, analysis of test results and completion of the medical decision making process will be conducted by additional ED providers. TRAVEL OUTSIDE OF THE [place] IN LAST 30 DAYS: No - Related Data Allergies/Adverse Reactions: hydroxyzine Allergy (Verified 10/31/17 22:08) ibuprofen Allergy (Verified 10/31/17 22:08) ketorolac [From Toradol] Allergy (Verified 10/31/17 22:08) tramadol Allergy (Verified 10/31/17 22:08) Past Medical History - Social History Chew tobacco use (# tins/day): No Frequency of alcohol use: None Drug Abuse: None Family history: Reviewed & Not Pertinent - Past Medical History Cardiac Medical History: Reports: Hx Hypertension Renal/ Medical History: Reports: Hx Kidney Stones. Denies: Hx Peritoneal Dialysis Musculoskeltal Medical History: Reports Hx Musculoskeletal Deformity, Reports Hx Musculoskeletal Trauma Psychiatric Medical History: Reports: Hx Anxiety, Hx Depression Traumatic Medical History: Reports: Hx Fractures - Left ankle Past Surgical History: Reports: Hx Section - x3, Hx Cholecystectomy, Hx Neurologic Surgery - TUMBLER OPERATOR SHUNT, Hx Orthopedic Surgery - left ankle x1, right ankle x5, Hx Tubal Ligation, Hx TUMBLER OPERATOR Shunt, Other - Lap band and removal - Immunizations Immunizations up to date: Yes Physical Exam - Vital signs Vitals: Temp Pulse Resp BP Pulse Ox 99.0 F 98 16 135/88 H 93 12/12/17 18:04 12/12/17 18:04 12/12/17 18:04 12/12/17 18:04 12/12/17 18:04 Course - Vital Signs Vital signs: Temp Pulse Resp BP Pulse Ox 99.0 F 98 16 135/88 H 93 12/12/17 18:04 12/12/17 18:04 12/12/17 18:04 12/12/17 18:04 12/12/17 18:04 Doctor's Discharge - Discharge Referrals: JOSE CASTREJON PA-C [Primary Care Provider] - Follow up as needed
[2017-12-12 20:14] LABS: ABSOLUTE BASOPHILS # (AUTO) 0.1 10^3/uL (0.0-0.2); ABSOLUTE EOSINOPHILS # (AUTO) 0.3 10^3/uL (0.0-0.6); ABSOLUTE LYMPHOCYTES (AUTO) 2.7 10^3/uL (0.5-4.7); ABSOLUTE MONOCYTES (AUTO) 0.5 10^3/uL (0.1-1.4); ABSOLUTE NEUT (AUTO) 5.5 10^3/uL (1.7-8.2); BASOPHILS % (AUTO) 0.7 % (0-2); HEMATOCRIT 44.4 % (36.0-47.0); LYMPHOCYTES % (AUTO) 29.9 % (13-45); MEAN CORPUSCULAR HEMOGLOBIN 27.8 pg (27.0-33.4); MEAN CORPUSCULAR HGB CONC 33.7 g/dL (32.0-36.0); MEAN CORPUSCULAR VOLUME 82 fl (80-97); MONOCYTES % (AUTO) 5.6 % (3-13); PLATELET COUNT 306 10^3/uL (150-450); RED BLOOD COUNT 5.39 10^6/uL (3.72-5.28); RED CELL DISTRIBUTION WIDTH 15.8 % (11.5-14.0); SEGMENTED NEUTROPHILS % (AUTO) 60.8 % (42-78); TOTAL CELLS COUNTED % (AUTO) 100 %; WHITE BLOOD COUNT 9.1 10^3/uL (4.0-10.5)
[2017-12-12 20:19] LABS: INTERNATIONAL RATION (INR) 0.88; PROTHROMBIN TIME 12.4 SEC (11.4-15.4)
[2017-12-12 20:20] LABS: PARTIAL THROMBOPLASTIN TIME 32.1 SEC (23.5-35.8)
--- NOTE | 2017-12-12 20:27 | ER Document Report ---
ED Headache - General Chief Complaint: Headache Stated Complaint: HEADACHE Time Seen by Provider: 12/12/17 19:03 Mode of Arrival: Ambulatory Notes: Patient is a 32-year-old female with a history of hydrocephalus and a SCRAP HANDLER shunt placed in 2016 on [place] department for chief complaint of headache that started last night, worsened today, she states she has vomited about 4 times today and has a throbbing headache on the right side of her head. She denies injury, fever, photophobia, phonophobia. She denies frequent headaches. She does not follow with neurosurgery. Daily medications are Wellbutrin, Seroquel, Ambien. TRAVEL OUTSIDE OF THE [place] IN LAST 30 DAYS: No - Related Data Allergies/Adverse Reactions: hydroxyzine Allergy (Verified 10/31/17 22:08) ibuprofen Allergy (Verified 10/31/17 22:08) ketorolac [From Toradol] Allergy (Verified 10/31/17 22:08) tramadol Allergy (Verified 10/31/17 22:08) Past Medical History - General Information source: Patient - Social History Smoking Status: Current Every Day Smoker Chew tobacco use (# tins/day): No Frequency of alcohol use: None Drug Abuse: None Lives with: Family Family History: Reviewed & Not Pertinent Patient has suicidal ideation: No Patient has homicidal ideation: No - Past Medical History Cardiac Medical History: Reports: Hx Hypertension Renal/ Medical History: Reports: Hx Kidney Stones. Denies: Hx Peritoneal Dialysis Musculoskeletal Medical History: Reports Hx Musculoskeletal Deformity, Reports Hx Musculoskeletal Trauma Psychiatric Medical History: Reports: Hx Anxiety, Hx Depression Traumatic Medical History: Reports: Hx Fractures - Left ankle Past Surgical History: Reports: Hx Section - x3, Hx Cholecystectomy, Hx Neurologic Surgery - SCRAP HANDLER SHUNT, Hx Orthopedic Surgery - left ankle x1, right ankle x5, Hx Tubal Ligation, Hx SCRAP HANDLER Shunt, Other - Lap band and removal - Immunizations Immunizations up to date: Yes Review of Systems - Review of Systems Constitutional: No symptoms reported EENT: No symptoms reported Cardiovascular: No symptoms reported Respiratory: No symptoms reported Gastrointestinal: No symptoms reported Genitourinary: No symptoms reported Female Genitourinary: No symptoms reported Musculoskeletal: No symptoms reported Skin: No symptoms reported Hematologic/Lymphatic: No symptoms reported Neurological/Psychological: See HPI Physical Exam - Vital signs Vitals: Temp Pulse Resp BP Pulse Ox 99.0 F 98 16 135/88 H 93 12/12/17 18:04 12/12/17 18:04 12/12/17 18:04 12/12/17 18:04 12/12/17 18:04 - Notes Notes: GENERAL: Alert, interacts well. No acute distress. HEAD: Normocephalic, atraumatic. EYES: Pupils equal, round, and reactive to light. Extraocular movements intact. ENT: Oral mucosa moist, tongue midline. NECK: Full range of motion. Supple. Trachea midline. LUNGS: Clear to auscultation bilaterally, no wheezes, rales, or rhonchi. No respiratory distress. HEART: Regular rate and rhythm. No murmur ABDOMEN: Soft, non-tender. Non-distended. Bowel sounds present in all 4 quadrants. EXTREMITIES: Moves all 4 extremities spontaneously. No edema, normal radial and dorsalis pedis pulses bilaterally. No cyanosis. BACK: Tenderness over the right paracervical muscles, no midline tenderness, no saddle anesthesia, no signs of trauma. Normal upper and lower extremity range of motion, normal strength, normal distal neurovascular exam. NEUROLOGICAL: Alert and oriented x3. Normal speech. [cranial nerves II through XII grossly intact]. PSYCH: Normal affect, normal mood. SKIN: Warm, dry, normal turgor. No rashes or lesions noted. Course - Re-evaluation Re-evalutation: Patient is very well-appearing. No photophobia, normal neurologic exam, no signs of distress. She is very talkative. She does have some tenderness over the right paracervical musculature, otherwise her exam is unremarkable. Headache pain also on the right side. Suggestive of tension component. CBC, chemistry unremarkable. Shuntogram and CAT scan unremarkable with no evidence of hydrocephalus or occlusion. On reevaluation patient's headache has resolved. Low suspicion of any acute intracranial abnormality including subarachnoid hemorrhage, intracranial hemorrhage, or meningitis based on her examination, symptoms, and workup. Patient states she is ready to leave. Discussed suspected tension headaches, discussed with neurosurgery follow-up, discussed return precautions. Discussed patient with Dr. Bella. Stable at time of discharge. - Vital Signs Vital signs: Temp Pulse Resp BP Pulse Ox 97.9 F 89 17 118/71 96 12/13/17 00:41 12/13/17 00:41 12/13/17 00:41 12/13/17 00:41 12/13/17 00:41 - Laboratory Result Diagrams: 12/12/17 20:05 12/12/17 20:05 Laboratory results interpreted by me: 12/12/17 20:05 RBC 5.39 H RDW 15.8 H Discharge - Discharge Clinical Impression: Headache Qualifiers: Headache type: unspecified Headache chronicity pattern: acute headache Intractability: not intractable Qualified Code(s): R51 - Headache Condition: Stable Disposition: HOME, SELF-CARE Additional Instructions: Your imaging of the head does not show any abnormality at this time. The shuntogram is normal. Your symptoms suggest that this is most likely a tension headache. Recommend using the muscle relaxer as prescribed, apply heat to your neck, performing gentle massage and stretches to reduce these. Follow-up with primary care and with neurosurgery for additional management and monitoring. Return if you worsen including severe headache, fever, vomiting, or any other concerning symptoms. Prescriptions: Methocarbamol [Robaxin 750 mg Tablet] 750 mg PO Q6 #20 tablet Promethazine HCl [Phenergan 25 mg Tablet] 25 mg PO Q6H PRN #20 tablet PRN Reason: Referrals: JOSE CASTREJON PA-C [Primary Care Provider] - Follow up as needed
[2017-12-12 20:31] LABS: ALANINE AMINOTRANSFERASE 26 U/L (9-52); ALBUMIN 4.7 g/dL (3.5-5.0); ALKALINE PHOSPHATASE 93 U/L (38-126); ANION GAP 12 (5-19); ASPARTATE AMINO TRANSFERASE 16 U/L (14-36); BILIRUBIN,DIRECT 0.4 mg/dL (0.0-0.4); BILIRUBIN,TOTAL 0.5 mg/dL (0.2-1.3); BLOOD UREA NITROGEN 16 mg/dL (7-20); CARBON DIOXIDE 25 mmol/L (22-30); CHLORIDE 102 mmol/L (98-107); GLUCOSE 90 mg/dL (75-110); POTASSIUM 4.4 mmol/L (3.6-5.0); SODIUM 138.5 mmol/L (137-145); TOTAL PROTEIN 8.1 g/dL (6.3-8.2)
[2017-12-12] MEDS ORDERED: METOCLOPRAMIDE HCL INJ/PF 10 MG/2 ML SDV IV ONE (22:44)
[2017-12-12] MEDS ORDERED: METOCLOPRAMIDE HCL INJ/PF 10 MG/2 ML SDV ONE (22:56)
[2017-12-12] MEDS ORDERED: MORPHINE SULFATE 10 MG/ML INJ ONE ×2 (22:56→22:57)
[2017-12-12] MEDS ORDERED: HYDROCODONE/ACETAMINOPHEN 5-325 MG (6 TAB/ER DISP) PO PRN (23:59)
[2017-12-13 00:42] VITALS: BP 118/71
--- NOTE | 2017-12-13 07:46 | RADIOLOGY REPORT (SQ) ---
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 FINDINGS: AP skull, cervical spine and chest films demonstrate that the ventriculoperitoneal shunt t ubing is intact. AP chest abdomen and pelvis exams demonstrate that the ventriculoperitoneal shunt t ubing is intact. No acute infiltrates pleural effusions pneumothorax. Mild cardiomegaly. Clips rig ht upper quadrant post cholecystectomy. Normal bowel gas pattern. No acute bony changes IMPRESSION: Ventriculoperitoneal shunt tubing is intact. No acute infiltrates Normal bowel gas pattern TECHNICAL DOCUMENTATION: JOB ID: [id number] [employer]- All Rights Reserved Reading location - IP/workstation name: [email or web address]
--- NOTE | 2017-12-13 07:46 | RADIOLOGY REPORT (SQ) ---
EXAM DESCRIPTION: CT HEAD WITHOUT COMPLETED DATE/TIME: 12/12/2017 7:07 pm REASON FOR STUDY: Headache severe headache COMPARISON: CT brain 01/31/2007, 03/06/2017, 05/18/2017, 08/16/2017 TECHNIQUE: Axial images acquired through the brain without intravenous contrast. Images reviewed wi th bone, brain and subdural windows. Additional sagittal and coronal reconstructions were generated. Images stored on PACS. All CT scanners at this facility use dose modulation, iterative reconstruction, and/or weight based d osing when appropriate to reduce radiation dose to as low as reasonably achievable (ALARA). [facility]: Dose Right [facility]: CareDose [facility]: Dose Right [facility]: Teradose 4D [facility]: [employer] RADIATION DOSE: 53 mGy. LIMITATIONS: None. FINDINGS: VENTRICLES: Normal size and contour. There is a right frontal ventricular drainage cathet er present with the tip at the foramen of Monro region, unchanged from prior exams. CEREBRUM: No masses. No hemorrhage. No midline shift. No evidence for acute infarction. Normal gra y/white matter differentiation. No areas of low density in the white matter. CEREBELLUM: No masses. No hemorrhage. No alteration of density. No evidence for acute infarction. EXTRAAXIAL SPACES: No fluid collections. No masses. ORBITS AND GLOBE: No intra- or extraconal masses. Normal contour of globe without masses. CALVARIUM: No fracture. PARANASAL SINUSES: No fluid or mucosal thickening. SOFT TISSUES: No mass or hematoma. OTHER: Under intracranial vascular stent is present along the right transverse sinus axial image 12, unchanged from prior studies. IMPRESSION: No acute findings Intraventricular drainage catheter position unchanged, no hydrocephalus. EVIDENCE OF ACUTE STROKE: NO. COMMENT: Quality ID # [id number]: Final reports with documentation of one or more dose reduction techniques (e.g., Automated exposure control, adjustment of the mA and/or kV according to patient size, use of iterative reconstruction technique) TECHNICAL DOCUMENTATION: JOB ID: [id number] H[employer]- All Rights Reserved Reading location - IP/workstation name: [email or web address]
== END 2017-12-13 00:42 | disposition home or self-care (01) ==
LOC: ER 16:45
DX: R51 Headache (principal); F17.200 Nicotine dependence, unspecified, uncomplicated; I10 Essential (primary) hypertension; Z88.6 Allergy status to analgesic agent; Z98.2 Presence of cerebrospinal fluid drainage device; Z87.442 Personal history of urinary calculi; Z90.49 Acquired absence of other specified parts of digestive tract; Z98.51 Tubal ligation status
CPT/HCPCS: 96376; 99284; 96374; 96375; 36415; 85025; 85610; 85730; 80053; 75809; 70450; J2765; J2270; J2405

== ENCOUNTER 2018-02-06 12:06 | Emergency (ER) | payer MEDICAID ==
[2018-02-06] MEDS ORDERED: NORMAL SALINE 1000 ML 1,000 ML IV ONE (12:24)
[2018-02-06] MEDS ORDERED: MORPHINE SULFATE 10 MG/ML INJ IV ONE ×2 (12:24→14:34)
[2018-02-06] MEDS ORDERED: ONDANSETRON HCL INJ/PF 4 MG/2 ML SDV IV ONE (12:25)
--- NOTE | 2018-02-06 12:26 | ER Document Report ---
ED Medical Screen (RME) - General Chief Complaint: Flank Pain Stated Complaint: BACK PAIN Time Seen by Provider: 02/06/18 12:23 Mode of Arrival: Ambulatory Information source: Patient TRAVEL OUTSIDE OF THE [place] IN LAST 30 DAYS: No - HPI Patient complains to provider of: lbp/flank pain Onset: Yesterday - pt. went to yesterday and was told she had a uti. Pain in back/flank worse today with N/V - Related Data Allergies/Adverse Reactions: hydroxyzine Allergy (Verified 02/06/18 12:07) ibuprofen Allergy (Verified 02/06/18 12:07) ketorolac [From Toradol] Allergy (Verified 02/06/18 12:07) tramadol Allergy (Verified 02/06/18 12:07) Past Medical History - Social History Family history: Reviewed & Not Pertinent - Past Medical History Cardiac Medical History: Reports: Hx Hypertension Renal/ Medical History: Reports: Hx Kidney Stones. 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, Hx Orthopedic Surgery - left ankle x1, right ankle x5, Hx Tubal Ligation, Hx BARREL STRAIGHTENER Shunt, Other - Lap band and removal - Immunizations Immunizations up to date: Yes Physical Exam - Vital signs Vitals: Temp Pulse Resp BP Pulse Ox 98 F 91 18 129/75 H 97 02/06/18 12:17 02/06/18 12:17 02/06/18 12:17 02/06/18 12:17 02/06/18 12:17 Course - Vital Signs Vital signs: Temp Pulse Resp BP Pulse Ox 98 F 91 18 129/75 H 97 02/06/18 12:17 02/06/18 12:17 02/06/18 12:17 02/06/18 12:17 02/06/18 12:17 Doctor's Discharge - Discharge Referrals: JOSE CASTREJON PA-C [Primary Care Provider] - Follow up as needed
[2018-02-06 12:55] LABS: APPEARANCE,URINE SLIGHTLY-CLOUDY; BILIRUBIN,URINE NEGATIVE (NEGATIVE); COLOR,URINE YELLOW; GLUCOSE, URINE NEGATIVE (NEGATIVE); KETONES,URINE NEGATIVE (NEGATIVE); LEUKOCYTE ESTERASE,URINE NEGATIVE (NEGATIVE); NITRITE,URINE NEGATIVE (NEGATIVE); PROTEIN,URINE NEGATIVE (NEGATIVE); URINE SPECIFIC GRAVITY 1.025
[2018-02-06 13:16] LABS: ABSOLUTE EOSINOPHILS # (AUTO) 0.3 10^3/uL (0.0-0.6); ABSOLUTE LYMPHOCYTES (AUTO) 2.4 10^3/uL (0.5-4.7); ABSOLUTE MONOCYTES (AUTO) 0.4 10^3/uL (0.1-1.4); ABSOLUTE NEUT (AUTO) 3.4 10^3/uL (1.7-8.2); BASOPHILS % (AUTO) 0.7 % (0-2); EOSINOPHILS % (AUTO) 4.5 % (0-6); HEMATOCRIT 39.9 % (36.0-47.0); HEMOGLOBIN 13.2 g/dL (12.0-15.5); LYMPHOCYTES % (AUTO) 36.3 % (13-45); MEAN CORPUSCULAR HGB CONC 33.1 g/dL (32.0-36.0); MEAN CORPUSCULAR VOLUME 85 fl (80-97); MONOCYTES % (AUTO) 6.4 % (3-13); PLATELET COUNT 292 10^3/uL (150-450); RED BLOOD COUNT 4.72 10^6/uL (3.72-5.28); RED CELL DISTRIBUTION WIDTH 15.6 % (11.5-14.0); SEGMENTED NEUTROPHILS % (AUTO) 52.1 % (42-78); TOTAL CELLS COUNTED % (AUTO) 100 %; WHITE BLOOD COUNT 6.5 10^3/uL (4.0-10.5)
[2018-02-06 13:36] LABS: ALANINE AMINOTRANSFERASE 21 U/L (9-52); ALBUMIN 3.9 g/dL (3.5-5.0); ALKALINE PHOSPHATASE 66 U/L (38-126); ANION GAP 10 (5-19); ASPARTATE AMINO TRANSFERASE 12 U/L (14-36); BILIRUBIN,DIRECT 0.3 mg/dL (0.0-0.4); BILIRUBIN,TOTAL 0.3 mg/dL (0.2-1.3); BLOOD UREA NITROGEN 16 mg/dL (7-20); CALCIUM 9.2 mg/dL (8.4-10.2); CARBON DIOXIDE 26 mmol/L (22-30); CHLORIDE 108 mmol/L (98-107); GLUCOSE 93 mg/dL (75-110); POTASSIUM 4.9 mmol/L (3.6-5.0); SODIUM 143.7 mmol/L (137-145); TOTAL PROTEIN 6.7 g/dL (6.3-8.2)
--- NOTE | 2018-02-06 14:17 | ER Document Report ---
ED General - General Chief Complaint: Flank Pain Stated Complaint: BACK PAIN Time Seen by Provider: 02/06/18 12:23 Mode of Arrival: Ambulatory Notes: Patient is a 32-year-old female that presents to the emergency department for chief complaint of bilateral flank pain. Patient reports she was seen in urgent care yesterday, diagnosed with a UTI, and given an IM injection of Rocephin. She is been having urinary frequency, and felt odor to her urine, but denies dysuria or hematuria. She reports history of kidney stones, but this is not quite the same. She is having pain on both sides. She currently rates the pain as a 6 out of 10, describes as a constant aching sensation. She has had nausea and vomiting over the last 3 days associated with this as well. Denies any fevers or night sweats. She also denies having any chest pain, shortness of breath, difficulty breathing. 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 Family History: Reviewed and noncontributory for presenting illness Allergies: Reviewed, see documented allergy list. REVIEW OF SYSTEMS: Other than noted above, the 12 point review of systems was reviewed with the patient and were negative, all pertinent findings are included in the HPI. PHYSICAL EXAMINATION: Vital signs reviewed, nursing noted reviewed. GENERAL: Well-appearing, well-nourished and in no acute distress. HEAD: Atraumatic, normocephalic. EYES: Eyes appear normal, extraocular movements intact, sclera anicteric, conjunctiva are normal. ENT: nares patent, oropharynx clear without exudates. Moist mucous membranes. NECK: Normal range of motion, supple without lymphadenopathy LUNGS: Breath sounds clear to auscultation bilaterally and equal. No wheezes rales or rhonchi. HEART: Regular rate and rhythm without murmurs ABDOMEN: Soft, bilateral flank tenderness with palpation, mild anterior suprapubic tenderness with palpation as well, normoactive bowel sounds. No rebound, guarding, or rigidity. No masses appreciated. EXTREMITIES: Nontender, good range of motion, no pitting or edema. NEUROLOGICAL: No focal neurological deficits. Moves all extremities spontaneously Motor and sensory grossly intact on exam. PSYCH: Normal mood, normal affect. SKIN: Warm, Dry, normal turgor, no rashes or lesions noted on exposed skin TRAVEL OUTSIDE OF THE [place] IN LAST 30 DAYS: No - Related Data Allergies/Adverse Reactions: hydroxyzine Allergy (Verified 02/06/18 12:07) ibuprofen Allergy (Verified 02/06/18 12:07) ketorolac [From Toradol] Allergy (Verified 02/06/18 12:07) tramadol Allergy (Verified 02/06/18 12:07) Past Medical History - General Information source: Patient - Social History Smoking Status: Current Every Day Smoker Chew tobacco use (# tins/day): No Frequency of alcohol use: Rare Drug Abuse: None Family History: Reviewed & Not Pertinent Patient has suicidal ideation: No Patient has homicidal ideation: No - Past Medical History Cardiac Medical History: Reports: Hx Hypertension Renal/ Medical History: Reports: Hx Kidney Stones. Denies: Hx Peritoneal Dialysis Musculoskeletal Medical History: Reports Hx Musculoskeletal Deformity, Reports Hx Musculoskeletal Trauma Psychiatric Medical History: Reports: Hx Anxiety, Hx Depression Traumatic Medical History: Reports: Hx Fractures - Left ankle Past Surgical History: Reports: Hx Section - x3, Hx Cholecystectomy, Hx Neurologic Surgery - HIGHWAY ENGINEERING TECHNICIAN SHUNT, Hx Orthopedic Surgery - left ankle x1, right ankle x5, Hx Tubal Ligation, Hx HIGHWAY ENGINEERING TECHNICIAN Shunt, Other - Lap band and removal - Immunizations Immunizations up to date: Yes Physical Exam - Vital signs Vitals: Temp Pulse Resp BP Pulse Ox 98 F 91 18 129/75 H 97 02/06/18 12:17 02/06/18 12:17 02/06/18 12:17 02/06/18 12:17 02/06/18 12:17 Course - Re-evaluation Re-evalutation: Patient seen and examined vital signs reviewed. Laboratory data and imaging were ordered as appropriate for the patient's presenting symptoms and complaint, with consideration of any critical or life threatening conditions that may be associated with their obtained history and exam as noted above. Patient was treated with IV fluid, morphine, and Zofran, ordered by triage provider, on my evaluation patient still having some pain, additional morphine was ordered. She was given a dose of 1 g of IV Rocephin Results were reviewed when available and demonstrated blood work essentially unremarkable, urinalysis was still positive for signs of urinary tract infection , CT imaging of the abdomen and pelvis was negative, no stones or hydronephrosis The patient was re-evaluated and was improved Evaluation was most consistent with urinary tract infection, possible partially treated pyelonephritis, patient will need outpatient oral antibiotics for additional 7 days, will use Omnicef, and provide the patient with medication for nausea with Phenergan 25 mg p.o. every 8 if needed. Results were discussed with the patient at this point, after careful consideration I feel that that patient can be discharged from the emergency department, the patient was educated treatments and reasons to return to the emergency department based on their presumed diagnosis as noted above, they were advised to followup with a primary care physician in 2-3 days. Patient was agreeable to plan of care. *Note is created using voice recognition software and may contain spelling, syntax or grammatical errors. Laboratory 02/06/18 02/06/18 02/06/18 12:40 13:00 13:00 WBC 6.5 RBC 4.72 Hgb 13.2 Hct 39.9 MCV 85 MCH 28.0 MCHC 33.1 RDW 15.6 H Plt Count 292 Seg Neutrophils % 52.1 Lymphocytes % 36.3 Monocytes % 6.4 Eosinophils % 4.5 Basophils % 0.7 Absolute Neutrophils 3.4 Absolute Lymphocytes 2.4 Absolute Monocytes 0.4 Absolute Eosinophils 0.3 Absolute Basophils 0.0 Sodium 143.7 Potassium 4.9 Chloride 108 H Carbon Dioxide 26 Anion Gap 10 BUN 16 Creatinine 0.89 Est GFR ( Amer) > 60 Est GFR (Non-Af Amer) > 60 Glucose 93 Calcium 9.2 Total Bilirubin 0.3 Direct Bilirubin 0.3 Neonat Total Bilirubin Not Reportable Neonat Direct Bilirubin Not Reportable Neonat Indirect Bili Not Reportable AST 12 L ALT 21 Alkaline Phosphatase 66 Total Protein 6.7 Albumin 3.9 Urine Color YELLOW Urine Appearance SLIGHTLY-CLOUDY Urine pH 5.0 Ur Specific Phelps 1.025 Urine Protein NEGATIVE Urine Glucose (UA) NEGATIVE Urine Ketones NEGATIVE Urine Blood SMALL H Urine Nitrite NEGATIVE Urine Bilirubin NEGATIVE Urine Urobilinogen 2.0 H Ur Leukocyte Esterase NEGATIVE Urine WBC (Auto) 2 Urine RBC (Auto) 1 U Hyaline Cast (Auto) 4 Urine Bacteria (Auto) TRACE Squamous Epi Cells Auto 7 Urine Mucus (Auto) MOD Urine Ascorbic Acid NEGATIVE Urine HCG, Qual NEGATIVE Limited or Localized CT 02/06/18 12:24 IMPRESSION: No acute findings within the abdomen or pelvis. Specifically, no nephrolithiasis or hydronephrosis. - Vital Signs Vital signs: Temp Pulse Resp BP Pulse Ox 98 F 91 18 129/75 H 97 02/06/18 12:17 02/06/18 12:17 02/06/18 12:17 02/06/18 12:17 02/06/18 12:17 - Laboratory Result Diagrams: 02/06/18 13:00 02/06/18 13:00 Laboratory results interpreted by me: 02/06/18 02/06/18 02/06/18 12:40 13:00 13:00 RDW 15.6 H Chloride 108 H AST 12 L Urine Blood SMALL H Urine Urobilinogen 2.0 H Discharge - Discharge Clinical Impression: Pyelonephritis Condition: Stable Disposition: HOME, SELF-CARE Instructions: Pyelonephritis ([facility]) Prescriptions: Cefdinir [Omnicef 300 mg Capsule] 1 cap PO BID #14 capsule Promethazine HCl [Phenergan 25 mg Tablet] 1 tab PO Q8H PRN #15 tablet PRN Reason: Referrals: JOSE CASTREJON PA-C [Primary Care Provider] - Follow up in 3-5 days
--- NOTE | 2018-02-06 14:19 | RADIOLOGY REPORT (SQ) ---
EXAM DESCRIPTION: CT LTD RENAL STONE PROTOCOL ON COMPLETED DATE/TIME: 02/06/2018 2:06 pm REASON FOR STUDY: Right and left lower quadrant abdominal pain radiating to back. COMPARISON: 04/23/2017 TECHNIQUE: CT scan of the abdomen and pelvis performed without intravenous or oral contrast. Images reviewed with lung, soft tissue, and bone windows. Reconstructed coronal and sagittal MPR images revi ewed. All images stored on PACS. All CT scanners at this facility use dose modulation, iterative reconstruction, and/or weight based d osing when appropriate to reduce radiation dose to as low as reasonably achievable (ALARA). [facility]: Dose Right [facility]: CareDose [facility]: Dose Right [facility]: Teradose 4D [facility]: Smart [employer] RADIATION DOSE: CT Rad equipment meets quality standard of care and radiation dose reduction techniq ues were employed. CTDIvol: 18.7 mGy. DLP: 1009 mGy-cm.mGy. LIMITATIONS: None. FINDINGS: LOWER CHEST: No significant findings. No nodules or infiltrates. NON-CONTRASTED LIVER, SPLEEN, ADRENALS: Evaluation limited by lack of IV contrast. No identified sign ificant masses. PANCREAS: No masses. No peripancreatic inflammatory changes. GALLBLADDER: Surgically absent. RIGHT KIDNEY AND URETER: No suspicious masses. Assessment limited by lack of IV contrast. No signif icant calcifications. No hydronephrosis or hydroureter. LEFT KIDNEY AND URETER: No suspicious masses. Assessment limited by lack of IV contrast. No signifi cant calcifications. No hydronephrosis or hydroureter. AORTA AND RETROPERITONEUM: No aneurysm. No retroperitoneal masses or adenopathy. BOWEL AND PERITONEAL CAVITY: No dilated loops of bowel. No intraperitoneal free air or free fluid. APPENDIX: Normal. PELVIS, BLADDER, AND ABDOMINAL WALL:No abnormal masses. No free fluid. Bladder normal. BONES: No significant findings. OTHER: Incompletely visualized THERMOCOUPLE TESTER shunt catheter with the distal tip terminating in the left hemipelv is. No discontinuity or kinking of the visualized catheter. IMPRESSION: No acute findings within the abdomen or pelvis. Specifically, no nephrolithiasis or hyd ronephrosis. COMMENT: Quality ID # [id number]: Final reports with documentation of one or more dose reduction techniques (e.g., Automated exposure control, adjustment of the mA and/or kV according to patient size, use of iterative reconstruction technique) TECHNICAL DOCUMENTATION: JOB ID: [id number] [email or web address]- All Rights Reserved Reading location - IP/workstation name: [email or web address]
[2018-02-06] MEDS ORDERED: CEFTRIAXONE INJ 1000 MG VIAL IV ONE (14:35)
[2018-02-06] MEDS ORDERED: CEFTRIAXONE 1 GM/D5W RTU 1 GM/50 ML RTUPB IV ONE (14:59)
[2018-02-06] MEDS ORDERED: HYDROCODONE/ACETAMINOPHEN 5-325 MG (6 TAB/ER DISP) PO PRN (15:22)
[2018-02-06 15:44] VITALS: BP 132/74
== END 2018-02-06 15:44 | disposition home or self-care (01) ==
LOC: ER 12:06
DX: N12 Tubulo-interstitial nephritis, not specified as acute or chronic (principal); R11.2 Nausea with vomiting, unspecified; R10.9 Unspecified abdominal pain; I10 Essential (primary) hypertension; F17.210 Nicotine dependence, cigarettes, uncomplicated; Z87.442 Personal history of urinary calculi; Z98.51 Tubal ligation status; Z88.6 Allergy status to analgesic agent; Z88.8 Allergy status to other drugs, medicaments and biological substances; Z88.0 Allergy status to penicillin; Z90.49 Acquired absence of other specified parts of digestive tract
CPT/HCPCS: 36415; 85025; 81025; 80053; 81001; 76380; J2270; J0696; J2405; J7030; 96361; 96365; 96375; 96376; 99284

== ENCOUNTER 2018-02-15 13:20 | Emergency (ER) | payer MEDICAID ==
[2018-02-15] MEDS ORDERED: NORMAL SALINE 1000 ML 1,000 ML IV ONE (13:37)
[2018-02-15] MEDS ORDERED: LORAZEPAM INJ 2 MG/1 ML VIAL IV ONE (13:37)
--- NOTE | 2018-02-15 13:37 | ER Document Report ---
ED Medical Screen (RME) - General Chief Complaint: Psych Problem Stated Complaint: PSYCH EVAL Time Seen by Provider: 02/15/18 13:33 Notes: Patient is a 32-year-old female that presents to the emergency department for chief complaint of anxiety. Patient recently found out that her was arrested and will likely be in custodial for 5 years, this triggered a severe panic attack from her, that she is unable to control, mobile crisis was called. ROS: Other than noted above, the 12 point review of systems was reviewed with the patient and were negative, all pertinent findings are included in the HPI. PHYSICAL EXAMINATION: Vital signs reviewed. GENERAL: Well-appearing, well-nourished and appears very anxious, hyperventilating HEAD: Atraumatic, normocephalic. EYES: Pupils equal round extraocular movements intact, conjunctiva are normal. ENT: Nares patent NECK: Normal range of motion CV: Heart rate tachycardic, regular rhythm LUNGS: Hyperventilating Musculoskeletal: Normal range of motion NEUROLOGICAL: Normal speech PSYCH: Patient has pressured speech, hyperventilating, very anxious MDM: Patient seen and examined for rapid initial assessment. Vital signs reviewed. A comprehensive ED assessment and evaluation of the patient, analysis of test results and completion of the medical decision making process will be conducted by additional ED providers. *Note is created using voice recognition software and may contain spelling, syntax or grammatical errors. TRAVEL OUTSIDE OF THE [place] IN LAST 30 DAYS: No - Related Data Allergies/Adverse Reactions: hydroxyzine Allergy (Verified 02/15/18 13:21) ibuprofen Allergy (Verified 02/15/18 13:21) ketorolac [From Toradol] Allergy (Verified 02/15/18 13:21) tramadol Allergy (Verified 02/15/18 13:21) Past Medical History - Social History Family history: Reviewed & Not Pertinent - Past Medical History Cardiac Medical History: Reports: Hx Hypertension Renal/ Medical History: Reports: Hx Kidney Stones. 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 SHUNT, Hx Orthopedic Surgery - left ankle x1, right ankle x5, Hx Tubal Ligation, Hx PAPER SALES REPRESENTATIVE Shunt, Other - Lap band and removal - Immunizations Immunizations up to date: Yes Physical Exam - Vital signs Vitals: Temp Pulse Resp BP Pulse Ox 98.2 F 106 H 28 H 139/82 H 97 02/15/18 13:23 02/15/18 13:23 02/15/18 13:23 02/15/18 13:23 02/15/18 13:23 Course - Vital Signs Vital signs: Temp Pulse Resp BP Pulse Ox 98.2 F 106 H 28 H 139/82 H 97 02/15/18 13:23 02/15/18 13:23 02/15/18 13:23 02/15/18 13:23 02/15/18 13:23 Doctor's Discharge - Discharge Referrals: JOSE CASTREJON PA-C [Primary Care Provider] - Follow up as needed
[2018-02-15] MEDS ORDERED: ZIPRASIDONE MESYLATE INJ/PF 20 MG SDV IM ONE (13:43)
[2018-02-15 14:34] LABS: ABSOLUTE BASOPHILS # (AUTO) 0.1 10^3/uL (0.0-0.2); ABSOLUTE EOSINOPHILS # (AUTO) 0.2 10^3/uL (0.0-0.6); ABSOLUTE LYMPHOCYTES (AUTO) 3.1 10^3/uL (0.5-4.7); ABSOLUTE MONOCYTES (AUTO) 0.5 10^3/uL (0.1-1.4); ABSOLUTE NEUT (AUTO) 6.5 10^3/uL (1.7-8.2); BASOPHILS % (AUTO) 0.7 % (0-2); EOSINOPHILS % (AUTO) 1.6 % (0-6); HEMATOCRIT 42.2 % (36.0-47.0); HEMOGLOBIN 14.5 g/dL (12.0-15.5); LYMPHOCYTES % (AUTO) 30.2 % (13-45); MEAN CORPUSCULAR HEMOGLOBIN 28.3 pg (27.0-33.4); MEAN CORPUSCULAR HGB CONC 34.4 g/dL (32.0-36.0); MEAN CORPUSCULAR VOLUME 82 fl (80-97); MONOCYTES % (AUTO) 5.1 % (3-13); PLATELET COUNT 304 10^3/uL (150-450); RED BLOOD COUNT 5.12 10^6/uL (3.72-5.28); RED CELL DISTRIBUTION WIDTH 15.2 % (11.5-14.0); SEGMENTED NEUTROPHILS % (AUTO) 62.4 % (42-78); TOTAL CELLS COUNTED % (AUTO) 100 %; WHITE BLOOD COUNT 10.4 10^3/uL (4.0-10.5)
[2018-02-15 14:58] LABS: APPEARANCE,URINE CLOUDY; BILIRUBIN,URINE NEGATIVE (NEGATIVE); COLOR,URINE AMBER; GLUCOSE, URINE NEGATIVE (NEGATIVE); KETONES,URINE 20 mg/dL (NEGATIVE); LEUKOCYTE ESTERASE,URINE NEGATIVE (NEGATIVE); NITRITE,URINE NEGATIVE (NEGATIVE); PROTEIN,URINE 30 mg/dL (NEGATIVE); URINE SPECIFIC GRAVITY 1.028
[2018-02-15 15:00] LABS: ALANINE AMINOTRANSFERASE 25 U/L (9-52); ALBUMIN 4.6 g/dL (3.5-5.0); ALKALINE PHOSPHATASE 91 U/L (38-126); ANION GAP 14 (5-19); ASPARTATE AMINO TRANSFERASE 21 U/L (14-36); BILIRUBIN,DIRECT 0.3 mg/dL (0.0-0.4); BILIRUBIN,TOTAL 0.8 mg/dL (0.2-1.3); BLOOD UREA NITROGEN 16 mg/dL (7-20); CALCIUM 9.8 mg/dL (8.4-10.2); CARBON DIOXIDE 22 mmol/L (22-30); CHLORIDE 106 mmol/L (98-107); GLUCOSE 93 mg/dL (75-110); POTASSIUM 3.7 mmol/L (3.6-5.0); SODIUM 141.6 mmol/L (137-145); TOTAL PROTEIN 7.8 g/dL (6.3-8.2)
[2018-02-15 15:02] LABS: ACETAMINOPHEN < 10 ug/mL (10-30); ALCOHOL < 10 mg/dL (NONE DETECTED); SALICYLATE < 1.0 mg/dL (2.0-20.0)
[2018-02-15 15:28] LABS: URINE AMPHETAMINES SCREEN NEGATIVE; URINE BARBITURATES SCREEN NEGATIVE; URINE BENZODIAZEPINES SCREEN NEGATIVE; URINE COCAINE SCREEN UNCONFIRMED POSITIVE; URINE MARIJUANA (THC) SCREEN NEGATIVE; URINE METHADONE SCREEN NEGATIVE; URINE PHENCYCLIDINE SCREEN NEGATIVE
--- NOTE | 2018-02-15 15:46 | EKG REPORT ---
SEVERITY:- NORMAL ECG - SINUS RHYTHM : Confirmed by: Kinsey Oconnor MD 15-Feb-2018 15:45:34
--- NOTE | 2018-02-15 17:04 | ER Document Report ---
ED Psych Disorder / Suicide <JOSEF CRESPO - Last Filed: 02/15/18 17:26> - General TRAVEL OUTSIDE OF THE [place] IN LAST 30 DAYS: No <CHACHA MANN - Last Filed: 02/15/18 19:41> - General Chief Complaint: Psych Problem Stated Complaint: PSYCH EVAL Time Seen by Provider: 02/15/18 13:33 Notes: Patient says that she is having problems with her anxiety. She is in pain management due to trauma injuries to both of her ankles requiring surgeries and medical plates. She also suffers from hydrocephalus with a shunt. She has headaches at times and has one now, but it does not feel like a headache that would be due to her shunt obstruction or malfunctioning. Additionally, patient just learned today that her who is in another state has been arrested and is likely to be going to intermediate for many years. Patient has a history of having suicidal thoughts and attempting suicide in the past but does not say that she is suicidal feeling at this time. Mostly, she says she is having trouble controlling her anxiety. Patient is currently on Klonopin for her anxiety. (CHACHA MANN) - Related Data Allergies/Adverse Reactions: hydroxyzine Allergy (Verified 02/15/18 13:21) ibuprofen Allergy (Verified 02/15/18 13:21) ketorolac [From Toradol] Allergy (Verified 02/15/18 13:21) tramadol Allergy (Verified 02/15/18 13:21) Past Medical History - Social History Smoking Status: Current Every Day Smoker Chew tobacco use (# tins/day): No Frequency of alcohol use: None Drug Abuse: None Family History: Reviewed & Not Pertinent Patient has suicidal ideation: No Patient has homicidal ideation: No - Past Medical History Cardiac Medical History: Reports: Hx Hypertension Renal/ Medical History: Reports: Hx Kidney Stones Musculoskeletal Medical History: Reports Hx Musculoskeletal Deformity, Reports Hx Musculoskeletal Trauma Psychiatric Medical History: Reports: Hx Anxiety, Hx Depression Traumatic Medical History: Reports: Hx Fractures - Left ankle Past Surgical History: Reports: Hx Section - x3, Hx Cholecystectomy, Hx Neurologic Surgery - 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 EENT: Denies eye, ear, nose or mouth or throat pain or other symptoms. CARDIOVASCULAR: Denies chest pain. RESPIRATORY: Denies cough, chest congestion, or shortness of breath. GASTROINTESTINAL: Denies abdominal pain or nausea, vomiting, or diarrhea. GENITOURINARY: Denies difficulty or painful urinating, urinary frequency, blood in urine. MUSCULOSKELETAL: Chronic back or neck pain. Denies joint pain or swelling. Bilateral ankle pain due to old trauma SKIN: Denies rash or skin lesions. NEUROLOGICAL: Denies LOC or altered mental status. Has some routine headache. Denies sensory loss or motor deficits. ALL OTHER SYSTEMS REVIEWED AND NEGATIVE. (CHACHA MANN) Physical Exam <JOSEF CRESPO - Last Filed: 02/15/18 17:26> - Vital signs Interpretation: Normal, Tachycardic - Slightly <CHACHA MANN - Last Filed: 02/15/18 19:41> - Vital signs Vitals: Temp Pulse Resp BP Pulse Ox 98.2 F 106 H 28 H 139/82 H 97 02/15/18 13:23 02/15/18 13:23 02/15/18 13:23 02/15/18 13:23 02/15/18 13:23 - Notes Notes: PHYSICAL EXAMINATION: GENERAL: Well-appearing, in no acute distress, although looks depressed and apparently has been tearful.. HEAD: Atraumatic, normocephalic. EYES: Pupils equal round and reactive to light, extraocular movements intact. ENT: oropharynx clear without exudates. Moist mucous membranes. NECK: Normal range of motion, supple. LUNGS: Breath sounds clear and equal bilaterally. HEART: Regular rate and rhythm without murmurs. ABDOMEN: Soft, nontender. No guarding or rebound. No masses. BACK: No tenderness throughout entire back. EXTREMITIES: Normal range of motion without pain. NEUROLOGICAL: Normal speech. Normal sensory, motor, and reflex exams. Awake, alert, and oriented x3. PSYCH: Depressed appearing facies. Sad acting. SKIN: Warm, dry, no rashes. (CHACHA MANN) Course - Laboratory Result Diagrams: 02/15/18 14:19 02/15/18 14:19 <JOSEF CRESPO - Last Filed: 02/15/18 17:26> - Laboratory Result Diagrams: 02/15/18 14:19 02/15/18 14:19 <CHACHA MANN - Last Filed: 02/15/18 19:41> - Re-evaluation Re-evalutation: 02/15/18 19:40 Patient says that she does not get good results with Ativan and the Klonopin does not seem to be helping either, but she was given 20 mg of Geodon IM in triage and says worked in a long time. I will give her a prescription for some Geodon on discharge. Patient's drug screen was positive for cocaine but she adamantly denies using cocaine. Requested we repeat the test. Repeat urine drug screen shows positive for cocaine a second time. (CHACHA MANN) - Vital Signs Vital signs: Temp Pulse Resp BP Pulse Ox 98.4 F 90 28 H 121/65 100 02/15/18 18:17 02/15/18 18:17 02/15/18 13:23 02/15/18 18:17 02/15/18 18:17 - Laboratory Laboratory results interpreted by me: 02/15/18 02/15/18 02/15/18 14:19 14:19 14:19 RDW 15.2 H Urine Protein 30 H Urine Ketones 20 H Urine Urobilinogen 4.0 H Salicylates < 1.0 L Acetaminophen < 10 L Discharge <JOSEF CRESPO - Last Filed: 02/15/18 17:26> <CHACHA MANN - Last Filed: 02/15/18 19:41> - Discharge Clinical Impression: Anxiety Condition: Stable Disposition: HOME, SELF-CARE Additional Instructions: You have been evaluated by both medical and behavioral health teams and been deemed appropriate for discharge. You are highly encouraged to follow-up with your outpatient mental health provider, Althea, in 3-5 days for continued outpatient mental health services. You have been provided a prescription for Geodon 20 mg twice daily; please take as directed. Anxiety The physician feels that some of your health problems are being caused by anxiety. Anxiety affects your health in many ways. Anxiety alone can cause palpitations, sweats, chest pains, abdominal pains, shortness of breath, and headaches. It contributes to ulcer disease, high blood pressure, irritable bowel syndrome, and has been shown to cause flare-ups of many other diseases. Anxiety is not a simple disorder to treat. If the anxiety is due to recent life stresses, you may simply need time to "work through" the changes. If the anxiety is due to an underlying unhappiness with yourself or due to psychiatric disturbance, professional help will be needed. Your physician can refer you for further help if needed. Anti-anxiety medication is occasionally given if the stress is acute or if you are having trouble sleeping. Chronic or frequent use of these medications is not a good idea because the body becomes reliant on it, preventing you from dealing with life's normal stresses. AT ANY TIME, IF YOUR SYMPTOMS CHANGE SIGNIFICANTLY OR WORSEN OR YOU DEVELOP NEW SYMPTOMS, RETURN TO THE EMERGENCY DEPARTMENT IMMEDIATELY FOR RE-EVALUATION. Prescriptions: Ziprasidone HCl [Geodon 20 Mg Capsule] 20 mg PO BIDP PRN #15 capsule PRN Reason: Forms: Return to Work Referrals: JOSE CASTREJON PA-C [Primary Care Provider] - Follow up as needed [facility] [Provider Group] - Follow up in 3-5 days
[2018-02-15 17:56] LABS: URINE AMPHETAMINES SCREEN NEGATIVE; URINE BARBITURATES SCREEN NEGATIVE; URINE BENZODIAZEPINES SCREEN NEGATIVE; URINE COCAINE SCREEN UNCONFIRMED POSITIVE; URINE MARIJUANA (THC) SCREEN NEGATIVE; URINE METHADONE SCREEN NEGATIVE; URINE PHENCYCLIDINE SCREEN NEGATIVE
[2018-02-15 18:20] VITALS: BP 121/65
--- NOTE | 2018-02-16 14:16 | PSYCHOLOGICAL NOTE ---
Psych Note - Psych Note Date seen by psych provider: 02/15/18 Time seen by psych provider: 03:30 Psych Note: Reason for Consult: anxiety Consent Permissions: Mother, Bev, at bedside per patient's request Patient says that she is having problems with her anxiety. Patient reports that since late last night she has been having difficulty with her anxiety. She reports she is on sure of her trigger however does know she found out that her ex- was arrested in [place] "doing things that he had done previous and is now looking at at least 5 years in [facility]." She continued to disclose that she could not breathe and was unable to calm herself. She denies any thoughts of harming herself or others. Patient's mother discloses that the patient's ex- is currently is in [place] with no thomas. She discloses that the patient's ex- is prior and the benefits he receives from the government pays child study team director. She reports the patient is fully employed has her own place in a car however does live in his needs very so is concerned that she lives too far from her support. She discloses that she wants the patient to come home with her for the next week or so until she is emotionally more stable. Patient agreed to this. Clinician again asked for consent for patient's mother to be in the room at which point the patient provided again. Clinician explained that the patient's anxiety could be increased with the use of cocaine. Patient appeared shocked and reports she is never used cocaine even when she was younger and "wild."She discloses that she is in pain management and is very careful about the medications she takes that she is not kicked out of pain management. She reports significant concern that there was toxicology screening indicating cocaine in her system and requests a second screening. Patient and patient's mother asked if the patient could have been exposed to any other way and started to review all of the patient's interactions over the last few days with other people and food she had eaten. Patient discloses that if she used cocaine she did be very honest and stated that she would at which point the patient's mother agreed that the patient would just say she took it. Patient is alert and orientated to person, place, time and circumstance. Mood is euthymic with congruent affect. Clinician notes patient was medicated in Pit with Zidon and was able to take a nap prior to evaluation. Patient denies suicidal and homicidal ideation. Delusions are absent behaviors congruent with an intact reality based presentation i.e. organized and linear thought process. Eye contact was well-maintained. Conversational speech was within normal rate , tone and prosody. Intellectual abilities appear to be within the average range. Attention and concentration were good. Insight, judgment, impulse control are good. 300.00 (F41.9) specified anxiety disorder Impression\\plan: Patient is cleared from acute psychiatric services. Patient discloses having difficulty controlling her anxiety and discloses a trigger of her ex- being arrested and looking at a time in [place]. This would affect the income coming in taking the care of the children here.Patient denies thoughts of harming herself or others. Clinician notes the patient did have a positive toxicology screening for cocaine and clinician conducted psychoeducation. Patient was adamant she has never used cocaine before and requested a second test done. Second test came back positive. Patient and patient's mother asked clinician of other ways patient could possibly been exposed to cocaine and then determined that the patient's significant other was the source. The patient stated that this was the information she needed to end the relationship. Patient discussed the possibility of patient's difficulty in controlling her anxiety could possibly be stemming from her exposure to cocaine. Patient is recommended to follow-up with her outpatient mental health provider of [facility] that she has previously set up beginning of next month. Patient agreed to return to her mother's home until she feels more emotionally stable. Dr. Mak was consulted and the care management of this patient; attending physician is agreement with recommendations and disposition.
== END 2018-02-15 18:22 | disposition home or self-care (01) ==
LOC: ER 13:20
DX: F41.9 Anxiety disorder, unspecified (principal); I10 Essential (primary) hypertension; Z87.442 Personal history of urinary calculi; Z90.49 Acquired absence of other specified parts of digestive tract; Z98.51 Tubal ligation status; Z88.6 Allergy status to analgesic agent
CPT/HCPCS: 93005; 99284; 96372; 96360; 36415; 80307 ×4; 84703; 85025; 80053; 81001; 93010; J3486; J7030

== ENCOUNTER 2018-04-01 18:03 | Emergency (ER) | payer MEDICAID, OTHER ==
[2018-04-01 18:41] VITALS: BP 144/91
[2018-04-01] MEDS ORDERED: PHENAZOPYRIDINE HCL 200 MG TABLET PO ONE (18:48)
--- NOTE | 2018-04-01 18:50 | ER Document Report ---
ED Medical Screen (RME) - General Chief Complaint: lower back pain Stated Complaint: LOWER BACK PAIN Time Seen by Provider: 04/01/18 18:44 Mode of Arrival: Ambulatory Information source: Patient Notes: Reports to the emergency department with complaints of lower back pain bilateral. Ambulated to the pit 3 without problems. Reports this is her usual symptoms when she has a UTI. Denies trauma. Denies urinary bowel incontinence or retention. Reports she has a low-grade fever. Return reports she took Percocet this morning without relief of pain. No complaints of vomiting or diarrhea. I have greeted and performed a rapid initial assessment of this patient. A comprehensive ED assessment and evaluation of the patient, analysis of test results and completion of the medical decision making process will be conducted by additional ED providers. TRAVEL OUTSIDE OF THE [place] IN LAST 30 DAYS: No - Related Data Allergies/Adverse Reactions: hydroxyzine Allergy (Verified 02/15/18 13:21) ibuprofen Allergy (Verified 02/15/18 13:21) ketorolac [From Toradol] Allergy (Verified 02/15/18 13:21) tramadol Allergy (Verified 02/15/18 13:21) Past Medical History - Social History Family history: Reviewed & Not Pertinent - Past Medical History Cardiac Medical History: Reports: Hx Hypertension Renal/ Medical History: Reports: Hx Kidney Stones. 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, Hx Orthopedic Surgery - left ankle x1, right ankle x5, Hx Tubal Ligation, Hx AUTOMOBILE SEAT COVER INSTALLER Shunt, Other - Lap band and removal - Immunizations Immunizations up to date: Yes Physical Exam - Vital signs Vitals: Temp Pulse Resp BP Pulse Ox 99.2 F 108 H 16 144/91 H 100 04/01/18 18:39 04/01/18 18:39 04/01/18 18:39 04/01/18 18:39 04/01/18 18:39 Course - Vital Signs Vital signs: Temp Pulse Resp BP Pulse Ox 99.2 F 108 H 16 144/91 H 100 04/01/18 18:39 04/01/18 18:39 04/01/18 18:39 04/01/18 18:39 04/01/18 18:39 Doctor's Discharge - Discharge Referrals: JOSE CASTREJON PA-C [Primary Care Provider] - Follow up as needed
== END 2018-04-01 20:14 | disposition left against medical advice (07) ==
LOC: ER 18:03
DX: M54.5 Low back pain (principal); I10 Essential (primary) hypertension; R50.9 Fever, unspecified; Z87.440 Personal history of urinary (tract) infections; Z87.442 Personal history of urinary calculi; Z53.20 Procedure and treatment not carried out because of patient's decision for unspecified reasons; Z88.6 Allergy status to analgesic agent; Z88.5 Allergy status to narcotic agent; Z88.8 Allergy status to other drugs, medicaments and biological substances
CPT/HCPCS: 99283

== ENCOUNTER 2018-04-02 09:38 | Emergency (ER) | payer MEDICAID ==
--- NOTE | 2018-04-02 10:33 | ER Document Report ---
ED GI/ - General Chief Complaint: Flank Pain Stated Complaint: BACK PAIN Time Seen by Provider: 04/02/18 10:22 Mode of Arrival: Ambulatory Information source: Patient Notes: 32-year-old female presents to ED for complaint of bilateral flank pain since yesterday. She states that the same pain she had last time she had urinary tract infection. She also has suprapubic pain. She states she does not have any vaginal discharge. She states she came in last night but that she felt that the provider was rushed and rude to her so she did elect to leave and not stay. She said it was very busy and she does not know if that is what was going on. She states that she does have a history of kidney stones and urinary tract infections both of which cause the same pain. She denies any vomiting but states she has had some nausea. She states she was trying to go home and work it out herself but the pain is come back and she needs to be examined. Patient is alert and oriented respirations regular and unlabored speaking in full sentences and walks with a even steady gait. TRAVEL OUTSIDE OF THE [place] IN LAST 30 DAYS: No - HPI Patient complains to provider of: Flank pain - Bilateral flank pain and suprapubic pain, Other - Nausea. No: Vaginal discharge Onset: Yesterday Timing/Duration: Intermittent Quality of pain: Achy, Sharp Severity at maximum: Moderate Severity in ED: Moderate Pain Level: 4 Location: Left flank, Right flank, Suprapubic Vaginal bleeding (Compared to normal period): None LMP: 03/22/2018 Associated symptoms: Nausea, Other - Bilateral flank pain and suprapubic pain with nausea Exacerbated by: Movement Relieved by: Denies Similar symptoms previously: Yes Recently seen / treated by doctor: Yes - Related Data Allergies/Adverse Reactions: hydroxyzine Allergy (Verified 04/02/18 09:39) ibuprofen Allergy (Verified 04/02/18 09:39) ketorolac [From Toradol] Allergy (Verified 04/02/18 09:39) tramadol Allergy (Verified 04/02/18 09:39) Past Medical History - General Information source: Patient - Social History Smoking Status: Current Every Day Smoker Cigarette use (# per day): Yes - Half pack per day Chew tobacco use (# tins/day): No Smoking Education Provided: Yes - 4 minutes Frequency of alcohol use: Rare Drug Abuse: None Family History: Reviewed & Not Pertinent Patient has suicidal ideation: No Patient has homicidal ideation: No - Past Medical History Cardiac Medical History: Reports: Hx Hypertension Pulmonary Medical History: Reports: None EENT Medical History: Reports: None Neurological Medical History: Reports: Other - Hydrocephalus with 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 MACHINE 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 shunt Endocrine Medical History: Reports: None Renal/ Medical History: Reports: Hx Kidney Stones Malignancy Medical History: Reports: None GI Medical History: Reports: None Musculoskeletal Medical History: Reports Hx Musculoskeletal Deformity, Reports Hx Musculoskeletal Trauma Skin Medical History: Reports None Psychiatric Medical History: Reports: Hx Anxiety, Hx Depression - anxiety Traumatic Medical History: Reports: Hx Fractures - Left ankle Infectious Medical History: Reports: None Past Surgical History: Reports: Hx Section - x3, Hx Cholecystectomy, Hx Neurologic Surgery - TURNING MACHINE OPERATOR SHUNT, Hx Orthopedic Surgery - left ankle x1, right ankle x5, Hx Tubal Ligation, Hx TURNING MACHINE OPERATOR Shunt, Other - Lap band and removal - Immunizations Immunizations up to date: Yes Review of Systems - Review of Systems Constitutional: No symptoms reported EENT: No symptoms reported Cardiovascular: No symptoms reported Respiratory: No symptoms reported Gastrointestinal: Nausea Genitourinary: Flank pain, Other - Suprapubic pain Female Genitourinary: No symptoms reported Musculoskeletal: No symptoms reported Skin: No symptoms reported Hematologic/Lymphatic: No symptoms reported Neurological/Psychological: No symptoms reported Physical Exam - Vital signs Vitals: Temp Pulse Resp BP Pulse Ox 97.9 F 108 H 20 142/89 H 96 04/02/18 09:43 04/02/18 09:43 04/02/18 09:43 04/02/18 09:43 04/02/18 09:43 Interpretation: Normal - General General appearance: Appears well, Alert - HEENT Head: Normocephalic, Atraumatic Eyes: Normal Pupils: PERRL - Respiratory Respiratory status: No respiratory distress Chest status: Nontender Breath sounds: Normal Chest palpation: Normal - Cardiovascular Rhythm: Regular Heart sounds: Normal auscultation Murmur: No - Abdominal Inspection: Normal Distension: No distension Bowel sounds: Normal Tenderness: Tender - Suprapubic. No: McBurney's point, Butt's sign, Guarding, Rebound Organomegaly: No organomegaly - Back Back: CVA tenderness - Bilateral - Extremities General upper extremity: Normal inspection, Nontender, Normal color, Normal ROM, Normal temperature General lower extremity: Normal inspection, Nontender, Normal color, Normal ROM, Normal temperature, Normal weight bearing. No: Melisa's sign - Neurological Neuro grossly intact: Yes Cognition: Normal Orientation: AAOx4 [place] Coma Scale Eye Opening: Spontaneous Judy Coma Scale Verbal: Oriented [place] Coma Scale Motor: Obeys Commands Judy Coma Scale Total: 15 Speech: Normal Motor strength normal: LUE, RUE, LLE, RLE Sensory: Normal - Psychological Associated symptoms: Normal affect, Normal mood - Skin Skin Temperature: Warm Skin Moisture: Dry Skin Color: Normal Course - Re-evaluation Re-evalutation: 04/02/18 11:44 CT was negative for hydronephrosis or kidney stones. Urine was negative for UTI. It was concentrated that she needed to drink more fluids. Patient has cut it possibly a muscle strain from at work. I did tell her that muscle strain was very good possibility with the negative CT and urine. Patient given prescription for muscle relaxers. Patient was given instructions on Tylenol ice warm packs and use of Aspercreme lidocaine for her back pain. Patient was instructed to follow-up with her primary doctor. After performing a Medical Screening Examination, I estimate there is LOW risk for EXPANDING OR RUPTURED ABDOMINAL AORTIC ANEURYSM, CAUDA EQUINA SYNDROME, EPIDURAL MASS LESION, or HERNIATED DISK CAUSING SEVERE SPINAL STENOSIS, thus I consider the discharge disposition reasonable. I have reevaluated this patient multiple times and no significant life threatening changes are noted. The patient and I have discussed the diagnosis and risks, and we agree with discharging home and close follow-up. We also discussed returning to the Emergency Department immediately if new or worsening symptoms occur with the understanding that symptoms and presentations can change. We have discussed the symptoms which are most concerning (e.g., saddle anesthesia, urinary or bowel incontinence or retention, changing or worsening pain) that necessitate immediate return. - Vital Signs Vital signs: Temp Pulse Resp BP Pulse Ox 97.9 F 108 H 20 142/89 H 96 04/02/18 09:43 04/02/18 09:43 04/02/18 09:43 04/02/18 09:43 04/02/18 09:43 - Laboratory Laboratory results interpreted by me: 04/02/18 10:35 Urine Protein 30 H - Diagnostic Test Radiology reviewed: Image reviewed, Reports reviewed Discharge - Discharge Clinical Impression: Bilateral flank pain Condition: Stable Disposition: HOME, SELF-CARE Additional Instructions: Flank Pain We weren't able to prove an exact cause for your flank pain. Pain in the flank can be caused by a muscle strain or spasm. Sometimes a kidney stone causes pain, but can't be found on our tests. Infection in the kidney should be evident on a urine test. Early shingles can occasionally cause flank pain, without the rash that proves the diagnosis. On rare occasions, disease of the pancreas, aorta, spleen, or colon can create pain in the flank. At this time, there's no evidence of a dangerous condition, and it seems safe for you to be at home. If the pain goes away and does not come back, no further testing will be needed. If pain persists, or becomes more severe, we may need to repeat some tests or order additional new testing. Blood in the urine, urgency to urinate frequently, and pain that radiates to the groin can indicate a kidney stone. Fever may mean that the pain is due to infection, either of the kidney or the colon (diverticulitis). If your pain is early shingles, you should develop an eruption of blisters in the painful area within a few days. Call the doctor or return if you have pain that is spreading or becoming more severe, pain that does not resolve with time, fever, or any other new symptoms. MUSCLE STRAIN: You have strained a muscle -- torn the fibers within the muscle. This often occurs with strenuous exertion, or during an injury that suddenly stretches the muscle. The seriousness of a strain varies. Some strains heal within days, others cause problems for months. X-rays cannot show a muscle strain. X-rays are taken only if symptoms suggest that a fracture could be present. The usual treatment of a muscle strain is rest and ice packs. Sometimes, a sling, splint, or crutches may be necessary to rest the muscle. The muscle can be used again once pain subsides. Severe strains require a special exercise and stretching program to prevent permanent stiffness and disability. Your doctor will advise you if this will be necessary. Call the doctor immediately if pain or swelling becomes severe, or if numbness or discoloration develop. USE OF TYLENOL (ACETAMINOPHEN): Acetaminophen may be taken for pain relief or fever control. It's much safer than aspirin, offering a wider range of "safe" dosages. It is safe during . Some brand names are Tylenol, Panadol, Datril, Anacin 3, Tempra, and Liquiprin. Acetaminophen can be repeated every four hours. The following are maximum recommended dosages: WEIGHT Dose Drops Elixir Chewable(80mg) (LBS.) drprs=droppers tsp=teaspoon 6 40 mg 0.4 ml (1/2) 6-11 80 mg 0.8 ml (full) tsp 1 tab 12-16 120 mg 1 1/2 drprs 3/4 tsp 1 1/2 tabs 17-23 160 mg 2 drprs 1 tsp 2 tabs 24-30 240 mg 3 drprs 1 1/2 tsp 3 tabs 30-35 320 mg 2 tsp 4 tabs 36-41 360 mg 2 1/4 tsp 4 1/2 tabs 42-47 400 mg 2 1/2 tsp 5 tabs 48-53 480 mg 3 tsp 6 tabs 54-59 520 mg 3 1/4 tsp 6 1/2 tabs 60-64 560 mg 3 1/2 tsp 7 tabs 65-70 600 mg 3 3/4 tsp 7 1/2 tabs 71-76 640 mg 4 tsp 8 tabs 77-82 720 mg 4 1/2 tsp 9 tabs 83-88 800 mg 5 tsp 10 tabs >89 pounds or adults 650 mg to 900 mg Acetaminophen can be repeated every four hours. Maximum dose not to exceed 4000 mg a day. These maximum recommended dosages are slightly higher than the dosages written on the product container, but these dosages are very safe and below the toxic dosage for acetaminophen. ICE PACKS: Apply ice packs frequently against the painful area. Many different schedules are recommended, such as "20 minutes on, 20 minutes off" or "one hour ice, two hours rest." If you need to work, you may need to go longer between ice treatments. You should plan to have the area ice packed AT LEAST one fourth of the time. The ice should be applied over the wrap, tape, or splint, or over a layer of cloth -- not directly against the skin. Some ice bags have a built-in cloth and can be put directly on the skin. WARM PACKS: After approximately two days, apply gentle heat (such as a heating pad or hot water bottle) for about 20 to 30 minutes about every two hours -- at least four times daily. Warmth and elevation will help you make a more rapid recovery, and will ease the pain considerably. Do not use HOT heat, and never apply heat for longer than 30 minutes. The continuous heat can invisibly damage skin and muscles -- even when no burn is seen on the surface. Damaged muscles can make you MORE sore. MUSCLE RELAXERS: Muscle relaxing medications are usually prescribed for acute muscle spasm or injury to the neck and back. They are often combined with antiinflammatory pain medication for increased relief. You may stop the muscle relaxer when the pain and stiffness have improved. Start the medication again if spasms recur. Muscle relaxers may cause drowsiness, especially with the first dose. Do not operate machinery or drive while under the effects of the medication. Most muscle relaxers last up to 24 hours. Do not combine the medication with alcohol. FOLLOW-UP CARE: If you have been referred to a physician for follow-up care, call the physicians office for an appointment as you were instructed or within the next two days. If you experience worsening or a significant change in your symptoms, notify the physician immediately or return to the Emergency Department at any time for re-evaluation. Prescriptions: Cyclobenzaprine HCl [Flexeril 10 mg Tablet] 10 mg PO TIDP PRN #15 tab PRN Reason: Forms: Elevated Blood Pressure, Smoking Cessation Education, Return to Work Referrals: JOSE CASTREJON PA-C [Primary Care Provider] - Follow up as needed
--- NOTE | 2018-04-02 11:07 | RADIOLOGY REPORT (SQ) ---
EXAM DESCRIPTION: CT LTD RENAL STONE PROTOCOL ON COMPLETED DATE/TIME: 04/02/2018 10:49 am REASON FOR STUDY: flank pain hx of stones COMPARISON: 2018 TECHNIQUE: CT scan of the abdomen and pelvis performed without intravenous or oral contrast. Images reviewed with lung, soft tissue, and bone windows. Reconstructed coronal and sagittal MPR images revi ewed. All images stored on PACS. All CT scanners at this facility use dose modulation, iterative reconstruction, and/or weight based d osing when appropriate to reduce radiation dose to as low as reasonably achievable (ALARA). [facility]: Dose Right [facility]: CareDose [facility]: Dose Right [facility]: Teradose 4D [facility]: [employer] RADIATION DOSE: CT Rad equipment meets quality standard of care and radiation dose reduction techniq ues were employed. CTDIvol: 17.9 mGy. DLP: 908 mGy-cm.mGy. LIMITATIONS: None. FINDINGS: LOWER CHEST: No significant findings. No nodules or infiltrates. NON-CONTRASTED LIVER, SPLEEN, ADRENALS: Evaluation limited by lack of IV contrast. No identified sign ificant masses. PANCREAS: No masses. No peripancreatic inflammatory changes. GALLBLADDER: Surgically absent. RIGHT KIDNEY AND URETER: No solid masses. No significant calcification. No hydronephrosis or hydroure ter. LEFT KIDNEY AND URETER: No solid masses. No significant calcification. No hydronephrosis or hydrouret er. AORTA AND RETROPERITONEUM: No aneurysm. No retroperitoneal masses or adenopathy. BOWEL AND PERITONEAL CAVITY: No obvious masses or inflammatory changes. No free fluid. APPENDIX: Normal. PELVIS, BLADDER, AND ABDOMINAL WALL:Decompressed but grossly normal bladder. No pelvic mass or free fluid detected. No abdominal wall mass or hernia. BONES: No significant findings. OTHER: Ventriculoperitoneal shunt catheter in place IMPRESSION: NO SIGNIFICANT OR ACUTE PROCESS IN THE ABDOMEN OR PELVIS. TECHNICAL DOCUMENTATION: JOB ID: [id number] Quality ID # 436: Final reports with documentation of one or more dose reduction techniques (e.g., Au tomated exposure control, adjustment of the mA and/or kV according to patient size, use of iterative reconstruction technique) 2010 [employer]- All Rights Reserved Reading location - IP/workstation name: [email or web address]
[2018-04-02 11:20] LABS: APPEARANCE,URINE SLIGHTLY-CLOUDY; BILIRUBIN,URINE NEGATIVE (NEGATIVE); COLOR,URINE YELLOW; GLUCOSE, URINE NEGATIVE (NEGATIVE); KETONES,URINE NEGATIVE (NEGATIVE); LEUKOCYTE ESTERASE,URINE NEGATIVE (NEGATIVE); NITRITE,URINE NEGATIVE (NEGATIVE); PROTEIN,URINE 30 mg/dL (NEGATIVE); URINE SPECIFIC GRAVITY 1.025; UROBILINOGEN,URINE NEGATIVE mg/dL (<2.0)
[2018-04-02 11:35] VITALS: BP 135/83
== END 2018-04-02 11:44 | disposition home or self-care (01) ==
LOC: ER 09:38
DX: R10.9 Unspecified abdominal pain (principal); R10.30 Lower abdominal pain, unspecified; R11.0 Nausea; F17.210 Nicotine dependence, cigarettes, uncomplicated; I10 Essential (primary) hypertension
CPT/HCPCS: 76380; 81001; 87086; 87088; 99284; 99406

== ENCOUNTER 2018-05-04 20:37 | Emergency (ER) | payer MEDICAID ==
--- NOTE | 2018-05-04 21:24 | RADIOLOGY REPORT (SQ) ---
EXAM DESCRIPTION: CT HEAD WITHOUT IV CONTRAST COMPLETED DATE/TME: 05/04/2018 00:00 CLINICAL HISTORY: 32 years, Female, headache COMPARISON: 12/12/2017 CT TECHNIQUE: 190 Images stored on PACS. All CT scanners at this facility use dose modulation, iterative reconstruction, and/or weight based dosing when appropriate to reduce radiation dose to as low as reasonably achievable (ALARA). [facility]: Dose Right [facility]: CareDose [facility]: Dose Right [facility]: Teradose 4D [facility]: [employer] LIMITATIONS: None. FINDINGS: The globes are intact. Minor mucosal thickening of the maxillary sinuses. No displaced or depressed skull fracture. Ventriculostomy catheter entering from the right parietal region with the distal tip slightly to the left of midline in the frontal horn of the left lateral ventricle near the junction of the body of the left lateral ventricle. The lateral ventricles are decompressed. CT is limited for evaluation of acute infarct. No CT evidence for large or territorial acute infarct. Intracranial vascular stents in the region of the right transverse sinus, unchanged. No mass or midline shift. IMPRESSION: The ventriculostomy catheter and intracranial vascular stent in unchanged position. Stable decompressed appearance to the lateral ventricles. Negative for acute intracranial abnormality. TECHNICAL DOCUMENTATION: Quality ID # 436: Final reports with documentation of one or more dose reduction techniques (e.g., Automated exposure control, adjustment of the mA and/or kV according to patient size, use of iterative reconstruction technique) copyright 2010 [employer]- All Rights Reserved
--- NOTE | 2018-05-04 22:25 | ER Document Report ---
ED Medical Screen (RME) - General Chief Complaint: Headache >24 hrs old Stated Complaint: HEADACHE,DIZZINESS,VOMITTING Time Seen by Provider: 05/04/18 22:23 Primary Care Provider: JOSE CASTREJON PA-C [Primary Care Provider] - Follow up as needed Notes: Patient is a 32-year-old female with history of hydrocephalus comes in with a severe headache blurry vision and dizziness. Last time she felt like this she had to be transferred to [facility] because it was something related to her hydrocephalus. She is afebrile. No active nausea or vomiting I have treated and performed a rapid initial assessment of this patient. A comprehensive ED assessment and evaluation of the patient, analysis of test results and completion of medical decision making process will be conducted by additional ED providers. PHYSICAL EXAMINATION: GENERAL: no acute distress. A&Ox4. Answers questions appropriately. LUNGS: Breath sounds clear to auscultation bilaterally and equal. No wheezes rales or rhonchi. HEART: Regular rate and rhythm without murmurs, rubs, gallops. NEUROLOGICAL: Normal speech, normal gait. PSYCH: Normal mood, normal affect. TRAVEL OUTSIDE OF THE [place] IN LAST 30 DAYS: No - Related Data Allergies/Adverse Reactions: hydroxyzine Allergy (Verified 05/04/18 20:38) ibuprofen Allergy (Verified 05/04/18 20:38) ketorolac [From Toradol] Allergy (Verified 05/04/18 20:38) tramadol Allergy (Verified 05/04/18 20:38) Past Medical History - Social History Frequency of alcohol use: Rare Drug Abuse: None Family history: Reviewed & Not Pertinent - Past Medical History Cardiac Medical History: Reports: Hx Hypertension Renal/ Medical History: Reports: Hx Kidney Stones. 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, Hx Orthopedic Surgery - left ankle x1, right ankle x5, Hx Tubal Ligation, Hx FORMULATOR COMPOUNDER Shunt, Other - Lap band and removal - Immunizations Immunizations up to date: Yes Physical Exam - Vital signs Vitals: Temp Pulse Resp BP Pulse Ox 98 F 125 H 20 142/90 H 98 05/04/18 20:41 05/04/18 20:41 05/04/18 20:41 05/04/18 20:41 05/04/18 20:41 Course - Vital Signs Vital signs: Temp Pulse Resp BP Pulse Ox 98 F 125 H 20 142/90 H 98 05/04/18 20:41 05/04/18 20:41 05/04/18 20:41 05/04/18 20:41 05/04/18 20:41 Doctor's Discharge - Discharge Referrals: JOSE CASTREJON PA-C [Primary Care Provider] - Follow up as needed
--- NOTE | 2018-05-04 22:59 | ER Document Report ---
ED Headache - General Chief Complaint: Headache >24 hrs old Stated Complaint: HEADACHE,DIZZINESS,VOMITTING Time Seen by Provider: 05/04/18 22:59 Primary Care Provider: JOSE CASTREJON PA-C [Primary Care Provider] - Follow up as needed Mode of Arrival: Ambulatory Information source: Patient Notes: HISTORY OF PRESENT ILLNESS: Patient is a 32-year-old female with a past medical history of hydrocephalus status post DISTRICT ENGINEER shunt placement and chronic headaches who presents with recurrent headache for the past 3-4 days. Patient denies known injuries, no fevers or chills, no vision changes. Location: "Everywhere" Onset: Gradual but worsening Provocation: Leaning forward, lying flat, loud noises, bright lights Quality: "Throbbing everywhere" Radiation: None Severity: "Severe" Timing: Constant History of headaches: Yes Recent head injury: "Off and on" Vision changes: None Trouble walking: None Associated symptoms: No fevers or confusion REVIEW OF SYSTEMS: CONSTITUTIONAL : Denies fever or chills, no sweats. Denies recent illness. EENT: Denies eye, ear, throat, or mouth pain or symptoms. Denies nasal or sinus congestion. CARDIOVASCULAR: Denies chest pain. RESPIRATORY: Denies cough, cold, or chest congestion. Denies shortness of breath, difficulty breathing, or wheezing. GASTROINTESTINAL: Denies abdominal pain. Denies nausea, vomiting, or diarrhea. Denies constipation. GENITOURINARY: Denies difficulty urinating, painful urination, burning, frequency, or blood in urine. FEMALE GENITOURINARY: Denies vaginal bleeding, abnormal or irregular periods. MUSCULOSKELETAL: Denies body aches. Denies neck or back pain or joint pain or swelling. SKIN: Denies rash or skin lesions. HEMATOLOGIC : Denies easy bruising or bleeding. LYMPHATIC: Denies swollen, enlarged glands. NEUROLOGICAL: Positive for headaches. Denies altered mental status or loss of consciousness. Denies weakness or paralysis or loss of use of either side. Denies problems with gait or speech. Denies sensory or motor loss. PSYCHIATRIC: Denies anxiety or stress or depression. All other systems reviewed and negative. PHYSICAL EXAMINATION: GENERAL: Well-appearing, well-nourished and in no acute distress. HEAD: Atraumatic, normocephalic. No scalp deformity, depression, or crepitance. EYES: Pupils are 3 mm and equal/round/reactive to light, extraocular movements intact, sclera anicteric, conjunctiva are normal. ENT: Nares patent bilaterally, oropharynx clear without exudates or palatal petechia. Moist mucous membranes. No tonsil hypertrophy. NECK: Normal range of motion, supple without lymphadenopathy. LUNGS: Breath sounds present, equal, and clear to auscultation bilaterally. No wheezes, rales, or rhonchi. HEART: Regular rate and rhythm without murmurs, rubs, or gallops. 2+ peripheral pulses. Normal capillary refill. ABDOMEN: Soft, nontender, nondistended. Normoactive bowel sounds. No guarding, no rebound. No masses appreciated. BACK: Normal contour, no midline tenderness. Rectal exam deferred. PELVC: Deferred. EXTREMITIES: Normal range of motion, no pitting or edema. No cyanosis. NEUROLOGICAL: No focal neurological deficits. Cranial nerves III-XII grossly intact. Moves all extremities spontaneously and on command. PSYCH: Normal mood, normal affect. No suicidal thoughts/ideations. No homocidal thoughts/ideations. No hallucinations. SKIN: Warm, dry, normal turgor, no rashes or lesions noted. ASSESSMENT AND PLAN: This patient is a 32-year-old female who presents with acute on chronic headaches that could represent cluster headaches versus tension headaches versus migraine headaches. Much less likely DISTRICT ENGINEER shunt failure. 1. Will obtain CT head with shunt series. 2. Will give IV fluids with Benadryl, Reglan, and Imitrex. TRAVEL OUTSIDE OF THE [place] IN LAST 30 DAYS: No - Related Data Allergies/Adverse Reactions: hydroxyzine Allergy (Verified 05/04/18 20:38) ibuprofen Allergy (Verified 05/04/18 20:38) ketorolac [From Toradol] Allergy (Verified 05/04/18 20:38) tramadol Allergy (Verified 05/04/18 20:38) Past Medical History - General Information source: Patient - Social History Smoking Status: Current Every Day Smoker Chew tobacco use (# tins/day): No Frequency of alcohol use: Rare Drug Abuse: None Lives with: Family Family History: Reviewed & Not Pertinent Patient has suicidal ideation: No Patient has homicidal ideation: No - Past Medical History Cardiac Medical History: Reports: Hx Hypertension Pulmonary Medical History: Reports: None EENT Medical History: Reports: None Neurological Medical History: Reports: None Endocrine Medical History: Reports: None Renal/ Medical History: Reports: Hx Kidney Stones. Denies: Hx Peritoneal Dialysis Malignancy Medical History: Reports: None GI Medical History: Reports: None Musculoskeletal Medical History: Reports Hx Musculoskeletal Deformity, Reports Hx Musculoskeletal Trauma Skin Medical History: Reports None Psychiatric Medical History: Reports: Hx Anxiety, Hx Depression - anxiety Traumatic Medical History: Reports: Hx Fractures - Left ankle Infectious Medical History: Reports: None Past Surgical History: Reports: Hx Section - x3, Hx Cholecystectomy, Hx Neurologic Surgery - DISTRICT ENGINEER SHUNT, Hx Orthopedic Surgery - left ankle x1, right ankle x5, Hx Tubal Ligation, Hx DISTRICT ENGINEER Shunt, Other - Lap band and removal - Immunizations Immunizations up to date: Yes Hx Diphtheria, Pertussis, Tetanus Vaccination: Yes Physical Exam - Vital signs Vitals: Temp Pulse Resp BP Pulse Ox 98 F 125 H 20 142/90 H 98 05/04/18 20:41 05/04/18 20:41 05/04/18 20:41 05/04/18 20:41 05/04/18 20:41 Course - Re-evaluation Re-evalutation: 05/05/18 03:31 Patient reports that her headache is improved. She will be discharged home with return precautions and follow-up with her primary physician. Patient voices both understanding and agreeing with the plan. - Vital Signs Vital signs: Temp Pulse Resp BP Pulse Ox 98.2 F 125 H 19 124/88 H 96 05/05/18 03:01 05/04/18 20:41 05/05/18 03:01 05/05/18 03:01 05/05/18 03:01 - Diagnostic Test Radiology reviewed: Image reviewed, Reports reviewed Discharge - Discharge Clinical Impression: Migraine headache Qualifiers: Migraine type: unspecified Status migrainosus presence: without status migrainosus Condition: Good Disposition: HOME, SELF-CARE Instructions: Headache ([facility]) Additional Instructions: You have been evaluated in the Emergency Department for headache. While here, you were given multiple medications and received a head CT that was normal. Please follow-up with your primary physician as instructed in 1 week to be rechecked. Return to the Emergency Department if you experience worsening headaches, vision changes, confusion/disorientation, difficulty walking, or any other concerning symptoms. Prescriptions: Butalbital/Aspirin/Caffeine [Nmvjlm-[id number] 50-325-40] 1 each PO Q6H PRN #30 tablet PRN Reason: Metoclopramide HCl [Reglan 10 mg Tablet] 10 mg PO Q8H PRN #30 tablet PRN Reason: Referrals: JOSE CASTREJON PA-C [Primary Care Provider] - Follow up as needed Print Language: Greenlandic
[2018-05-04] MEDS ORDERED: NORMAL SALINE 1000 ML 1,000 ML IV ONE (23:54)
[2018-05-04] MEDS ORDERED: DIPHENHYDRAMINE HCL 50 MG/ML VIAL IV ONE (23:54)
[2018-05-04] MEDS ORDERED: METOCLOPRAMIDE HCL INJ/PF 10 MG/2 ML SDV IV ONE (23:54)
[2018-05-04] MEDS ORDERED: SUMATRIPTAN SUCCINATE 50 MG TABLET PO ONE (23:55)
[2018-05-05] MEDS: SUMATRIPTAN SUCCINATE 25 MG TABLET PO ONE ×2 (00:53→00:54)
[2018-05-05] MEDS: SUMATRIPTAN SUCCINATE 100 MG TABLET ONE ×2 (00:53→00:54)
--- NOTE | 2018-05-05 02:39 | RADIOLOGY REPORT (SQ) ---
EXAM DESCRIPTION: Shuntogram series, 05/04/2018, 9:09 PM CLINICAL HISTORY: 32 years Female headache COMPARISON: 05/18/2017 shuntogram TECHNIQUE: AP views of the calvarium, thorax, and abdomen FINDINGS: Ventriculostomy shunt catheter enters through the right parietal region with the shunt extending along the right neck, right hemithorax, and the distal tip coiled in the right hemipelvis. The lungs appear clear. The bowel gas pattern is nonspecific. Shunt appears intact. IMPRESSION: Unremarkable shuntogram series, as above
[2018-05-05] MEDS ORDERED: BUTALB/ACETAMINOPHEN/CAFFEINE 1 TAB EACH PO ONE (03:21)
[2018-05-05 03:48] VITALS: BP 124/88
== END 2018-05-05 04:01 | disposition home or self-care (01) ==
LOC: ER 20:37
DX: G43.909 Migraine, unspecified, not intractable, without status migrainosus (principal); R42 Dizziness and giddiness; R11.10 Vomiting, unspecified; F17.200 Nicotine dependence, unspecified, uncomplicated; I10 Essential (primary) hypertension
CPT/HCPCS: 99284; 96361; 96374; 96375; 75809; 70450; J3490 ×2; J1200; J2765; J7030

== ENCOUNTER 2018-05-14 19:05 | Emergency (ER) | payer OTHER, MEDICAID ==
[2018-05-14 19:32] VITALS: BP 149/86
[2018-05-14] MEDS ORDERED: METHOCARBAMOL 500 MG TABLET PO ONE (19:52)
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
== END 2018-05-14 22:00 | disposition left against medical advice (07) ==
LOC: ER 19:05
DX: G89.29 Other chronic pain (principal); Z76.5 Malingerer [conscious simulation]; M54.2 Cervicalgia; V87.7XXA Person injured in collision between other specified motor vehicles (traffic), initial encounter; I10 Essential (primary) hypertension; Z88.6 Allergy status to analgesic agent; Z87.442 Personal history of urinary calculi; Z90.49 Acquired absence of other specified parts of digestive tract; Z98.51 Tubal ligation status
CPT/HCPCS: 99283

== ENCOUNTER 2018-07-14 20:18 | Emergency (ER) | payer MEDICAID | END 2018-07-14 21:00 | disposition left against medical advice (07) | LOC: ER 20:18 | DX: Z53.21 Procedure and treatment not carried out due to patient leaving prior to being seen by health care provider (principal); M25.579 Pain in unspecified ankle and joints of unspecified foot ==

== ENCOUNTER 2018-07-15 07:32 | Emergency (ER) | payer MEDICAID ==
[2018-07-15] MEDS ORDERED: ONDANSETRON HCL INJ/PF 4 MG/2 ML SDV IV ONE (09:28)
[2018-07-15] MEDS ORDERED: MORPHINE SULFATE 10 MG/ML INJ IV ONE (09:28)
[2018-07-15 10:06] LABS: ABSOLUTE EOSINOPHILS # (AUTO) 0.1 10^3/uL (0.0-0.6); ABSOLUTE LYMPHOCYTES (AUTO) 1.8 10^3/uL (0.5-4.7); ABSOLUTE MONOCYTES (AUTO) 0.6 10^3/uL (0.1-1.4); ABSOLUTE NEUT (AUTO) 5.4 10^3/uL (1.7-8.2); BASOPHILS % (AUTO) 0.5 % (0-2); EOSINOPHILS % (AUTO) 1.9 % (0-6); HEMATOCRIT 41.1 % (36.0-47.0); HEMOGLOBIN 13.8 g/dL (12.0-15.5); LYMPHOCYTES % (AUTO) 22.8 % (13-45); MEAN CORPUSCULAR HEMOGLOBIN 28.6 pg (27.0-33.4); MEAN CORPUSCULAR HGB CONC 33.6 g/dL (32.0-36.0); MEAN CORPUSCULAR VOLUME 85 fl (80-97); MONOCYTES % (AUTO) 7.4 % (3-13); PLATELET COUNT 287 10^3/uL (150-450); RED BLOOD COUNT 4.83 10^6/uL (3.72-5.28); RED CELL DISTRIBUTION WIDTH 15.2 % (11.5-14.0); SEGMENTED NEUTROPHILS % (AUTO) 67.4 % (42-78); TOTAL CELLS COUNTED % (AUTO) 100 %
--- NOTE | 2018-07-15 10:21 | RADIOLOGY REPORT (SQ) ---
EXAM DESCRIPTION: ANKLE LEFT COMPLETE COMPLETED DATE/TIME: 07/15/2018 9:56 am REASON FOR STUDY: pain, edema, possible infection COMPARISON: None. NUMBER OF VIEWS: Three views. TECHNIQUE: AP, lateral, and oblique without weight bearing radiographic images acquired of the left ankle. LIMITATIONS: None. FINDINGS: MINERALIZATION: Normal. BONES: No acute fracture or dislocation. Hardware in the distal fibula. No worrisome bone lesions. No significant osteophytes. JOINTS: No effusions. SOFT TISSUES: No soft tissue swelling. No foreign body. OTHER: No other significant finding. IMPRESSION: HARDWARE IN THE DISTAL FIBULA. NO OTHER SIGNIFICANT FINDING IN THE LEFT ANKLE. NO EXPLA NATION FOR PAIN. TECHNICAL DOCUMENTATION: JOB ID: [id number] [employer]- All Rights Reserved Reading location - IP/workstation name: [email or web address]
[2018-07-15 10:25] LABS: ALANINE AMINOTRANSFERASE 33 U/L (9-52); ALBUMIN 3.8 g/dL (3.5-5.0); ALKALINE PHOSPHATASE 70 U/L (38-126); ANION GAP 7 (5-19); ASPARTATE AMINO TRANSFERASE 15 U/L (14-36); BILIRUBIN,DIRECT 0.2 mg/dL (0.0-0.4); BILIRUBIN,TOTAL 0.3 mg/dL (0.2-1.3); BLOOD UREA NITROGEN 13 mg/dL (7-20); C-REACTIVE PROTEIN 8.5 mg/L (<10.0); CALCIUM 9.4 mg/dL (8.4-10.2); CARBON DIOXIDE 27 mmol/L (22-30); CHLORIDE 106 mmol/L (98-107); GLUCOSE 86 mg/dL (75-110); POTASSIUM 4.3 mmol/L (3.6-5.0); SODIUM 139.7 mmol/L (137-145); TOTAL PROTEIN 6.9 g/dL (6.3-8.2)
--- NOTE | 2018-07-15 11:29 | ER Document Report ---
ED General - General Chief Complaint: Ankle Pain Stated Complaint: ANKLE SWOLLEN/PAIN Time Seen by Provider: 07/15/18 08:49 Primary Care Provider: LUCRETIA ROA FNP [Primary Care Provider] - Follow up as needed TRAVEL OUTSIDE OF THE [place] IN LAST 30 DAYS: No - HPI Notes: Patient is a 33-year-old female who presents to the emergency department for evaluation of left ankle pain. She states to me "I think it is infected." She states she was recently seen in [place]. They told her that she had a "infection in her ankle." They placed her on Keflex. I asked her if they did any drainage of the ankle or cultures. She states that the orthopedist who saw her told her it would be unwise to drain the ankle. She states she had improvement on Keflex. She states she has 10 out of 10 pain at this time in her ankle. She states she sees red streaking going up her ankle, similar to what she had in the past with her infection. No vika fevers, although she states she has been hot and cold. Some nausea but no emesis. - Related Data Allergies/Adverse Reactions: hydroxyzine Allergy (Verified 07/15/18 07:34) ibuprofen Allergy (Verified 07/15/18 07:34) ketorolac [From Toradol] Allergy (Verified 07/15/18 07:34) tramadol Allergy (Verified 07/15/18 07:34) Past Medical History - General Information source: Patient - Social History Smoking Status: Current Every Day Smoker Frequency of alcohol use: None Drug Abuse: None Family History: Reviewed & Not Pertinent Patient has suicidal ideation: No Patient has homicidal ideation: No - Past Medical History Cardiac Medical History: Reports: Hx Hypertension Renal/ Medical History: Reports: Hx Kidney Stones. Denies: Hx Peritoneal Dialysis Musculoskeletal Medical History: Reports Hx Musculoskeletal Deformity, Reports Hx Musculoskeletal Trauma Psychiatric Medical History: Reports: Hx Anxiety, Hx Depression - anxiety Traumatic Medical History: Reports: Hx Fractures - Left ankle Past Surgical History: Reports: Hx Section - x3, Hx Cholecystectomy, Hx Neurologic Surgery - PIPEFITTER WELDER SHUNT, Hx Orthopedic Surgery - left ankle x1, right ankle x6, Hx Tubal Ligation, Hx PIPEFITTER WELDER Shunt, Other - Lap band and removal - Immunizations Immunizations up to date: Yes Hx Diphtheria, Pertussis, Tetanus Vaccination: Yes Review of Systems - Review of Systems Constitutional: See HPI EENT: No symptoms reported Cardiovascular: No symptoms reported Respiratory: No symptoms reported Gastrointestinal: No symptoms reported Genitourinary: No symptoms reported Musculoskeletal: See HPI Skin: See HPI Neurological/Psychological: No symptoms reported Physical Exam - Vital signs Vitals: Temp Pulse Resp BP Pulse Ox 98.0 F 103 H 16 132/76 H 97 07/15/18 07:48 07/15/18 07:48 07/15/18 07:48 07/15/18 07:48 07/15/18 07:48 - Notes Notes: Vital signs reviewed, please refer to chart. Patient is normocephalic, atraumatic. Pupils equal round, reactive to light. Neck is supple without meningismus. Heart is regular rate and rhythm. Lungs are clear to auscultation bilaterally. Abdomen is soft, nontender, normoactive bowel sounds throughout. Extremities without cyanosis, clubbing, edema. Examination of the left leg yields well-healed scar from fibular fixation. No erythema at all is noted. She has a very mild amount of edema over the lateral malleolus without ecchymosis. She seems to have excessive pain and even the lightest touch over any of the skin of her lower extremity from the distal tibia on. Dorsalis pedis and posterior tibial pulses are 2+, capillary refill is brisk, sensation is intact. Peripheral pulses are equal. Skin is warm and dry. Patient is awake, alert, neurological exam is nonfocal. Course - Re-evaluation Re-evalutation: 07/15/18 11:25 Patient presents to the emergency department for evaluation. She had blood work, blood cultures, x-ray ordered. X-ray revealed no abnormality. Blood work revealed no abnormality. The patient asked multiple times for pain medication. She was given 1 dose of morphine here. She is claiming an allergy to both ibuprofen and Toradol. She also states she is allergic to Ultram. I did review this patient's visit history and multiple diagnoses. She has been diagnosed in the past with malingering and drug-seeking behavior. At this point she insists she sees signs of infection on exam. I see no erythema, no induration. Her blood work is without any abnormality. Her imaging is completely normal. At this point I do not see any indication for further narcotics or for antibiotics. I will refer her onto our local orthopedist that she states she does not want to drive to [place] any further. She is offered Tylenol here which she refuses. She did ask for a walking boot, which we do not have available. I will order an Yahir wrap. She is to return to the ED with worsening or new concerning symptoms of any sort. 07/15/18 11:27 - Vital Signs Vital signs: Temp Pulse Resp BP Pulse Ox 98.0 F 92 16 132/76 H 97 07/15/18 07:48 07/15/18 10:26 07/15/18 07:48 07/15/18 07:48 07/15/18 07:48 - Laboratory Result Diagrams: 07/15/18 09:45 07/15/18 09:45 Laboratory results interpreted by me: 07/15/18 09:45 RDW 15.2 H - Diagnostic Test Radiology reviewed: Reports reviewed - Nothing acute Discharge - Discharge Clinical Impression: Left ankle pain Condition: Stable Disposition: HOME, SELF-CARE Instructions: Yahir Wrap ([facility]) Additional Instructions: No clear cause was found for your ankle pain today. Follow-up with our on-call orthopedist, or your orthopedist in [place]. Rest, ice, elevate. Tylenol as needed for pain. Return to the emergency department with worsening or new concerning symptoms. Referrals: LUCRETIA ROA FNP [Primary Care Provider] - Follow up as needed
[2018-07-15 11:45] VITALS: BP 120/67
== END 2018-07-15 11:53 | disposition home or self-care (01) ==
LOC: ER 07:32
DX: M25.572 Pain in left ankle and joints of left foot (principal); R11.0 Nausea; F17.200 Nicotine dependence, unspecified, uncomplicated; I10 Essential (primary) hypertension; Z87.81 Personal history of (healed) traumatic fracture; Z98.890 Other specified postprocedural states; Z88.8 Allergy status to other drugs, medicaments and biological substances; Z88.6 Allergy status to analgesic agent; Z88.5 Allergy status to narcotic agent
CPT/HCPCS: 99283; 96374; 96375; 36415; 87040; 85025; 86140; 80053; 73610; J2270; J2405

== ENCOUNTER 2018-08-10 00:32 | Emergency (ER) | payer MEDICAID ==
[2018-08-10] MEDS ORDERED: NORMAL SALINE 1000 ML 1,000 ML IV ONE (02:05)
[2018-08-10] MEDS ORDERED: DIPHENHYDRAMINE HCL 50 MG/ML VIAL IV ONE (02:05)
[2018-08-10] MEDS ORDERED: METOCLOPRAMIDE HCL INJ/PF 10 MG/2 ML SDV IV ONE (02:05)
--- NOTE | 2018-08-10 02:12 | ER Document Report ---
ED Headache - General Chief Complaint: Headache >24 hrs old Stated Complaint: HEADACHE Time Seen by Provider: 08/10/18 01:28 Primary Care Provider: LUCRETIA ROA FNP [COMMUNITY BASED STAFF] - Follow up in 3-5 days Notes: Patient is a 32-year-old female with a past medical history of hydrocephalus status post OUTSIDE SALES EXECUTIVE shunt placement and chronic headaches who presents with recurrent headache for the past 5 days. Patient denies known injuries, no fevers or chills, no vision changes. Patient states that the headache is global and it feels like her head is getting "smashed". She says this is similar to her last visit but the pain is worse. She states that she thinks it is due to her shunt because she is "not having vision changes which I get with my migraines". She took 1 of her rizatriptan pills at home with no relief. She denies fevers or chills, denies photophobia at this time, complains of dizziness and li ghtheadedness, denies neck stiffness, denies shortness of breath or chest pain, complains of nausea but no vomiting, denies abdominal pain, denies any numbness or weakness in one or more of her extremities, no other complaints. Location: "Everywhere" Onset: 5 days Provocation: Laying flat Quality: "My head is getting smashed" Radiation: None Severity: Severe Timing: Constant History of headaches: yes Recent head injury: No Vision changes: No Trouble walking: No Associated symptoms: Dizziness TRAVEL OUTSIDE OF THE [place] IN LAST 30 DAYS: No - Related Data Allergies/Adverse Reactions: hydroxyzine Allergy (Verified 07/15/18 07:34) ibuprofen Allergy (Verified 07/15/18 07:34) ketorolac [From Toradol] Allergy (Verified 07/15/18 07:34) tramadol Allergy (Verified 07/15/18 07:34) Past Medical History - Social History Smoking Status: Never Smoker Chew tobacco use (# tins/day): No Drug Abuse: None Family History: Reviewed & Not Pertinent Patient has suicidal ideation: No Patient has homicidal ideation: No - Past Medical History Cardiac Medical History: Reports: Hx Hypertension Renal/ Medical History: Reports: Hx Kidney Stones. Denies: Hx Peritoneal Dialysis Musculoskeletal Medical History: Reports Hx Musculoskeletal Deformity, Reports Hx Musculoskeletal Trauma Psychiatric Medical History: Reports: Hx Anxiety, Hx Depression - anxiety Traumatic Medical History: Reports: Hx Fractures - Left ankle Past Surgical History: Reports: Hx Section - x3, Hx Cholecystectomy, Hx Neurologic Surgery - OUTSIDE SALES EXECUTIVE SHUNT, Hx Orthopedic Surgery - left ankle x1, right an kle x6, Hx Tubal Ligation, Hx OUTSIDE SALES EXECUTIVE Shunt, Other - Lap band and removal - Immunizations Immunizations up to date: Yes Hx Diphtheria, Pertussis, Tetanus Vaccination: Yes Physical Exam - Vital signs Vitals: Temp Pulse Resp BP Pulse Ox 98.1 F 120 H 20 151/88 H 96 08/10/18 00:37 08/10/18 00:37 08/10/18 00:37 08/10/18 00:37 08/10/18 00:37 - Notes Notes: PHYSICAL EXAMINATION: Reviewed vital signs and charting by RN GENERAL: Well-appearing, well-nourished and in no acute distress. HEAD: Atraumatic, normocephalic. No scalp deformity, depression, or crepitance. EYES: Pupils are 3 mm and equal/round/reactive to light, extraocular movements intact, sclera anicteric, conjunctiva are normal. ENT: Nares patent bilaterally, oropharynx clear without exudates or palatal petechia. Moist mucous membranes. No tonsil hypertrophy. NECK: Normal range of motion, supple without lymphadenopathy. LUNGS: Breath sounds present, equal, and clear to auscultation bilaterally. No wheezes, rales, or rhonchi. HEART: Regular rate and rhythm without murmurs, rubs, or gallops. 2+ peripheral pulses. Normal capillary refill. ABDOMEN: Soft, nontender, nondistended. Normoactive bowel sounds. No guarding, no rebound. No masses appreciated. BACK: Normal contour, no midline tenderness. Rectal exam deferred. PELVC: Deferred. EXTREMITIES: Normal range of motion, no pitting or edema. No cyanosis. NEUROLOGICAL: No focal neurological deficits. Cranial nerves III-XII grossly intact. Moves all extremities spontaneously and on command. PSYCH: Normal mood, normal affect. No suicidal thoughts/ideations. No homocidal thoughts/ideations. No hallucinations. SKIN: Warm, dry, normal turgor, no rashes or lesions noted. Course - Re-evaluation Re-evalutation: 08/10/18 02:17 Does not appear to be in acute distress. Symptoms consistent with previous visit here. CT head and shuntogram was completed last visit which was normal. I will give her Benadryl, Reglan, IV fluids at this time to see if her symptoms improve. Briefly discussed patient with Dr. Mcintosh. Will obtain a CT head without contrast and a shuntogram. 08/10/18 05:29 CT head and shuntogram both stable from previous exams, nothing grossly abnormal out of place. All lab work within normal limits. Patient states improved symptoms but headache is not completely gone. UDS negative. I explained to patient that I am not can give her any more narcotics because her symptoms have improved. At this time she is stable for discharge. She is mildly tachycardic but this is consistent with previous visits and patient has underlying anxiety. - Vital Signs Vital signs: Temp Pulse Resp BP Pulse Ox 98.1 F 120 H 20 147/103 H 95 08/10/18 00:37 08/10/18 00:37 08/10/18 05:00 08/10/18 04:01 08/10/18 05:00 - Laboratory Result Diagrams: 08/10/18 00:56 08/10/18 00:56 Laboratory results interpreted by me: 08/10/18 00:56 RDW 16.1 H Discharge - Discharge Clinical Impression: Headache Qualifiers: Headache type: unspecified Headache chronicity pattern: acute headache Intractability: not intractable Qualified Code(s): R51 - Headache Condition: Good Disposition: HOME, SELF-CARE Instructions: Headache ([facility]) Additional Instructions: You have been seen in the Emergency Department (ED) for a headache. Please use Tylenol (acetaminophen) or Motrin (ibuprofen) as needed for symptoms, but only as written on the box. You are CT of your brain and the shuntogram were stable from the previous scans and there were no acute changes. The OUTSIDE SALES EXECUTIVE shunt is in place. As we have discussed, please follow up with your primary care doctor as soon as possible regarding today's ED visit and your headache symptoms. Call your doctor or return to the ED if you have a worsening headache, sudden and severe headache, confusion, slurred speech, facial droop, weakness or numbness in any arm or leg, extreme fatigue, or other symptoms that concern you. Forms: Special Work Note, Return to Work Referrals: LUCRETIA ROA FNP [COMMUNITY BASED STAFF] - Follow up in 3-5 days
[2018-08-10] MEDS ORDERED: FENTANYL CITRATE INJ/PF 100 MCG/2 ML AMPUL IV ONE (02:53)
[2018-08-10 04:13] LABS: ABSOLUTE EOSINOPHILS # (AUTO) 0.3 10^3/uL (0.0-0.6); ABSOLUTE LYMPHOCYTES (AUTO) 2.5 10^3/uL (0.5-4.7); ABSOLUTE MONOCYTES (AUTO) 0.5 10^3/uL (0.1-1.4); ABSOLUTE NEUT (AUTO) 4.7 10^3/uL (1.7-8.2); BASOPHILS % (AUTO) 0.6 % (0-2); EOSINOPHILS % (AUTO) 3.6 % (0-6); HEMATOCRIT 41.4 % (36.0-47.0); HEMOGLOBIN 13.5 g/dL (12.0-15.5); LYMPHOCYTES % (AUTO) 30.7 % (13-45); MEAN CORPUSCULAR HEMOGLOBIN 28.2 pg (27.0-33.4); MEAN CORPUSCULAR HGB CONC 32.7 g/dL (32.0-36.0); MEAN CORPUSCULAR VOLUME 86 fl (80-97); MONOCYTES % (AUTO) 6.4 % (3-13); PLATELET COUNT 302 10^3/uL (150-450); RED CELL DISTRIBUTION WIDTH 16.1 % (11.5-14.0); SEGMENTED NEUTROPHILS % (AUTO) 58.7 % (42-78); TOTAL CELLS COUNTED % (AUTO) 100 %
[2018-08-10 04:15] LABS: ALANINE AMINOTRANSFERASE 34 U/L (9-52); ALBUMIN 3.6 g/dL (3.5-5.0); ALKALINE PHOSPHATASE 72 U/L (38-126); ANION GAP 9 (5-19); ASPARTATE AMINO TRANSFERASE 23 U/L (14-36); BILIRUBIN,DIRECT 0.3 mg/dL (0.0-0.4); BILIRUBIN,TOTAL 0.3 mg/dL (0.2-1.3); BLOOD UREA NITROGEN 14 mg/dL (7-20); CALCIUM 9.2 mg/dL (8.4-10.2); CARBON DIOXIDE 26 mmol/L (22-30); CHLORIDE 107 mmol/L (98-107); GLUCOSE 101 mg/dL (75-110); POTASSIUM 4.4 mmol/L (3.6-5.0); SODIUM 141.7 mmol/L (137-145); TOTAL PROTEIN 6.7 g/dL (6.3-8.2)
--- NOTE | 2018-08-10 04:17 | RADIOLOGY REPORT (SQ) ---
EXAM DESCRIPTION: CT HEAD WITHOUT IV CONTRAST COMPLETED DATE/TME: 08/10/2018 02:52 CLINICAL HISTORY: ARMANDO, hx of hydrocephalus s/p shunt COMPARISON: 05/04/2018 TECHNIQUE: Axial CT of the head obtained from the skull apex to the skull base without contrast. FINDINGS: Right transplant frontal ventriculostomy catheter with tip terminating in the region of the body of the left lateral ventricle. This is stable in appearance. Visualized portions of the shunt are intact. The ventricular system is decompressed with relatively stable appearance. Vascular stent in the region of the right transverse sinus is stable. No acute intracranial hemorrhage identified. No mass, mass effect, shift of the midline, abnormal extra-axial fluid collection or CT evidence of acute ischemic change identified. No acute abnormalities of the supratentorial white matter, basal ganglia, cerebellum, or brainstem. The visualized paranasal sinuses and the mastoids are clear. No skull fracture identified. Visualized orbits and globes are unremarkable. DLP: 1070.38 mGy-cm IMPRESSION: 1. No acute intracranial hemorrhage identified. 2. Stable right transfrontal ventriculostomy catheter with tip terminating in the region of the left lateral ventricle. Stable decompressed appearance of the lateral ventricles. This exam was performed according to our departmental dose-optimization program, which includes automated exposure control, adjustment of the mA and/or kV according to patient size and/or use of iterative reconstruction technique.
[2018-08-10 04:32] LABS: APPEARANCE,URINE SLIGHTLY-CLOUDY; BILIRUBIN,URINE NEGATIVE (NEGATIVE); COLOR,URINE YELLOW; GLUCOSE, URINE NEGATIVE (NEGATIVE); KETONES,URINE NEGATIVE (NEGATIVE); LEUKOCYTE ESTERASE,URINE NEGATIVE (NEGATIVE); NITRITE,URINE NEGATIVE (NEGATIVE); PROTEIN,URINE NEGATIVE (NEGATIVE); URINE SPECIFIC GRAVITY 1.023; UROBILINOGEN,URINE NEGATIVE mg/dL (<2.0)
--- NOTE | 2018-08-10 04:52 | RADIOLOGY REPORT (SQ) ---
EXAM DESCRIPTION: Shuntogram, 08/11/2018, 3:19 AM CLINICAL HISTORY: 33 years Female headache COMPARISON: 05/04/2018 program TECHNIQUE: AP and lateral views of the skull, thorax, as well as the abdomen and pelvis. FINDINGS: Ventriculostomy shunt catheter seen entering into the right parietal bony calvarium and extending along the right neck and right thorax with the distal tip coiled in the pelvis. No visible fractures of the shunt. The lungs appear clear. The bowel gas pattern is nonspecific. IMPRESSION: Ventriculostomy shunt catheter as above. No visible fractures.
[2018-08-10 05:23] LABS: URINE AMPHETAMINES SCREEN NEGATIVE; URINE BARBITURATES SCREEN NEGATIVE; URINE BENZODIAZEPINES SCREEN NEGATIVE; URINE COCAINE SCREEN NEGATIVE; URINE MARIJUANA (THC) SCREEN NEGATIVE; URINE METHADONE SCREEN NEGATIVE; URINE PHENCYCLIDINE SCREEN NEGATIVE
[2018-08-10 05:34] VITALS: BP 139/82
== END 2018-08-10 05:33 | disposition home or self-care (01) ==
LOC: ER 00:32
DX: R51 Headache (principal); R42 Dizziness and giddiness
CPT/HCPCS: 99284; 96361; 96374; 96375; 36415; 85025; 81025; 80053; 81001; 80307; 75809; 70450; J1200; J3010; J2765; J7030

== ENCOUNTER 2018-08-16 14:40 | Emergency (ER) | payer MEDICAID ==
[2018-08-16 14:45] VITALS: BP 135/78
--- NOTE | 2018-08-16 15:08 | ER Document Report ---
ED Cardiac - General Chief Complaint: Abdominal Pain Stated Complaint: SIDE PAIN Time Seen by Provider: 08/16/18 15:01 Primary Care Provider: [facility] [Provider Group] - Follow up as needed Mode of Arrival: Ambulatory Information source: Patient TRAVEL OUTSIDE OF THE [place] IN LAST 30 DAYS: No - HPI Patient complains to provider of: Chest pain Notes: Patient here with complaints of right-sided chest pain. She states the pain is been present for the last 3 days. Is located under her right breast. It hurts when she takes a deep breath. She denies any injury. No fever. No abdominal pain. No nausea, vomiting, diarrhea. She has had her gallbladder removed. She denies any dysuria or hematuria. Pain is constant, moderate to severe, worse with deep breath, better with rest. She is reports having a prior DVT in the left upper extremity from a PICC line, she is not currently on anticoagulants. She recently had x-rays of her shunt series which were all normal. No other specific complaints at this time. - Related Data Allergies/Adverse Reactions: hydroxyzine Allergy (Verified 08/16/18 14:41) ibuprofen Allergy (Verified 08/16/18 14:41) ketorolac [From Toradol] Allergy (Verified 08/16/18 14:41) tramadol Allergy (Verified 08/16/18 14:41) Past Medical History - Social History Smoking Status: Current Every Day Smoker Family History: Reviewed & Not Pertinent Patient has suicidal ideation: No Patient has homicidal ideation: No - Past Medical History Cardiac Medical History: Reports: Hx Hypertension Renal/ Medical History: Reports: Hx Kidney Stones. Denies: Hx Peritoneal Dialysis Musculoskeletal Medical History: Reports Hx Musculoskeletal Deformity, Reports Hx Musculoskeletal Trauma Psychiatric Medical History: Reports: Hx Anxiety, Hx Depression - anxiety Traumatic Medical History: Reports: Hx Fractures - Left ankle Past Surgical History: Reports: Hx Section - x3, Hx Cholecystectomy, Hx Neurologic Surgery - [employer]ER SHUNT, Hx Orthopedic Surgery - left ankle x1, right ankle x6, Hx Tubal Ligation, Hx WE[employer] JOGGER Shunt, Other - Lap band and removal - Immunizations Immunizations up to date: Yes Hx Diphtheria, Pertussis, Tetanus Vaccination: Yes Review of Systems - Review of Systems -: Yes All other systems reviewed and negative Physical Exam - Vital signs Vitals: Temp Pulse Resp BP Pulse Ox 97.9 F 113 H 24 H 135/78 H 97 08/16/18 14:44 08/16/18 14:44 08/16/18 14:44 08/16/18 14:44 08/16/18 14:44 - Notes Notes: GENERAL: alert, cooperative, nontoxic, no distress. HEAD: normocephalic, atraumatic EYES: conjunctiva pink without discharge, no external redness or swelling. EARS: no external swelling, no external redness NOSE: atraumatic, no external swelling MOUTH/THROAT: mucous membranes moist and pink, posterior pharynx without erythema, swelling, exudate. No trismus or drooling. NECK: soft, supple, full range of motion, no meningismus. CHEST: no distress, lungs clear and equal throughout. No wheezing, rales, rhonchi. Patient noted to be taking short breaths. CARDIAC: regular rhythm, tachycardia, no murmur, normal capillary refill, normal pulses. No peripheral edema noted. ABDOMEN: Soft, nontender. No rebound tenderness or guarding. BACK: full range of motion, no CVA tenderness. EXTREMITIES: full range of motion of all extremities. No redness, no swelling. NEURO: alert and oriented x 3, no focal deficits, full range of motion of all extremities. PYSCH: appropriate mood, affect. Patient is cooperative. SKIN: pink, warm, dry, no rash. Course - Re-evaluation Re-evalutation: 08/16/18 15:15 Patient is nontoxic-appearing with stable vitals aside from mild tachycardia. She is not hypoxic. She here with complaints of right-sided chest pain which is sharp in nature for the last 3 days. She has a prior history of DVT from PICC line in her left upper extremity. She is not currently on anticoagulants. Of ordered a CBC, CMP, troponin, EKG, chest x-ray and d-dimer due to the fact that she has had prior DVT and has pleuritic chest pain. Patient states that she is not able to get narcotic medications out in triage that she will be leaving right now. Explained that we typically do not administer narcotic medications in triage but I would have been happy to give her Toradol. Unfortunately she is allergic to Toradol. Offered to give her Tylenol but she states that she will be leaving at this time. I explained that she will be leaving AGAINST MEDICAL ADVICE, she verbalized understanding of this. Explained that she has the potential risk of having a serious cause of her chest pain and that leaving could potentially cause her serious harm and potentially even , she verbalized understanding of this and is of sound mind to make this decision. The patient and/or family have decided to leave against medical advice. The patient and/or family are of sound mind to make this decision. The risks of leaving were discussed with the patient and/or family who verbalized an understanding of these risks. The possibility of worsening condition, chance of increased morbidity, disability, mortality, and even were discussed. The patient and/or family still choose to leave against medical advice. Strict return instructions were given. They were also instructed to return to the emergency department for any concerns not outlined in the return instructions. - Vital Signs Vital signs: Temp Pulse Resp BP Pulse Ox 97.9 F 113 H 24 H 135/78 H 97 08/16/18 14:44 08/16/18 14:44 08/16/18 14:44 08/16/18 14:44 08/16/18 14:44 Discharge - Discharge Clinical Impression: Right-sided chest pain Condition: Stable Disposition: AGAINST MEDICAL ADVICE Instructions: Chest Pain of Unclear Cause ([facility]) Additional Instructions: Should be evaluated immediately for your right-sided chest pain to rule out any serious source of your pain. We are unable to do any test here to rule out any serious cause of your pain as you are leaving AGAINST MEDICAL ADVICE. Follow-up with either your primary care doctor or another facility as soon as possible for further evaluation, you may also return the emergency department here for any worsening pain, fever, any further concerns. Forms: Elevated Blood Pressure, Smoking Cessation Education Referrals: [facility] [Provider Group] - Follow up as needed
--- NOTE | 2018-08-17 10:27 | EKG REPORT ---
SEVERITY:- NORMAL ECG - SINUS RHYTHM : Confirmed by: Dominick Finney 17-Aug-2018 10:26:48
== END 2018-08-16 15:07 | disposition left against medical advice (07) ==
LOC: ER 14:40
DX: R07.9 Chest pain, unspecified (principal); R00.0 Tachycardia, unspecified; R10.9 Unspecified abdominal pain; I10 Essential (primary) hypertension; Z88.6 Allergy status to analgesic agent; Z86.718 Personal history of other venous thrombosis and embolism; Z87.442 Personal history of urinary calculi; Z90.49 Acquired absence of other specified parts of digestive tract; Z98.51 Tubal ligation status; Z98.2 Presence of cerebrospinal fluid drainage device
CPT/HCPCS: 93005; 93010; 99284

== ENCOUNTER 2018-08-17 05:49 | Emergency (ER) | payer MEDICAID ==
[2018-08-17 07:06] VITALS: BP 141/90
[2018-08-17] MEDS ORDERED: PREDNISONE 20 MG TABLET PO ONE (07:08)
[2018-08-17] MEDS ORDERED: HYDROCODONE/ACETAMINOPHEN 5-325 MG (6 TAB/ER DISP) PO PRN (07:08)
[2018-08-17] MEDS ORDERED: CYCLOBENZAPRINE HCL 10 MG TABLET PO ONE (07:09)
--- NOTE | 2018-08-17 07:29 | ER Document Report ---
Entered by RAFIQ EL SCRIBE 08/17/18 0710 Acting as scribe for:ROSALIO BLISS MD ED General - General Chief Complaint: Chest Pain Stated Complaint: CHEST PAIN Time Seen by Provider: 08/17/18 06:42 Mode of Arrival: Ambulatory Information source: Patient Notes: Patient is a 33 year old female with hydrocephalus with a PIPE LINER shunt, depression, anxiety presents to the emergency department complaining of right sided chest pain onset 5 days ago. Patient states the pain is located underneath her right breast which was onset after having a coughing fit. Patient states the pain is exacerbated with coughing, deep breathing and reaching her right arm above her head. She denies any other focal symptoms. Patient reports being allergic to Tramadol, Toradol and hydroxyzine and reports being told not take Motrin or Aleve. TRAVEL OUTSIDE OF THE [place] IN LAST 30 DAYS: No - Related Data Allergies/Adverse Reactions: hydroxyzine Allergy (Verified 08/16/18 14:41) ibuprofen Allergy (Verified 08/16/18 14:41) ketorolac [From Toradol] Allergy (Verified 08/16/18 14:41) tramadol Allergy (Verified 08/16/18 14:41) Past Medical History - General Information source: Patient - Social History Smoking Status: Current Every Day Smoker Cigarette use (# per day): Yes Chew tobacco use (# tins/day): No Family History: Reviewed & Not Pertinent Patient has suicidal ideation: No Patient has homicidal ideation: No - Past Medical History Cardiac Medical History: Reports: Hx Hypertension Neurological Medical History: Reports: Other - Hydrocephalus Renal/ Medical History: Reports: Hx Kidney Stones Musculoskeletal Medical History: Reports Hx Musculoskeletal Deformity, Reports Hx Musculoskeletal Trauma Psychiatric Medical History: Reports: Hx Anxiety, Hx Depression - anxiety Traumatic Medical History: Reports: Hx Fractures - Left ankle Past Surgical History: Reports: Hx Section - x3, Hx Cholecystectomy, Hx Neurologic Surgery - PIPE LINER SHUNT, Hx Orthopedic Surgery - left ankle x1, right ankle x6, Hx Tubal Ligation, Hx PIPE LINER Shunt, Other - Lap band and removal - Immunizations Immunizations up to date: Yes Hx Diphtheria, Pertussis, Tetanus Vaccination: Yes Review of Systems - Review of Systems Constitutional: No symptoms reported EENT: No symptoms reported Cardiovascular: See HPI, Chest pain Respiratory: See HPI, Cough, Hurts to breathe Gastrointestinal: No symptoms reported Genitourinary: No symptoms reported Female Genitourinary: No symptoms reported Musculoskeletal: No symptoms reported Skin: No symptoms reported Hematologic/Lymphatic: No symptoms reported Neurological/Psychological: No symptoms reported -: Yes All other systems reviewed and negative Physical Exam - Vital signs Vitals: Temp Pulse Resp BP Pulse Ox 98.0 F 105 H 22 H 142/59 H 97 08/17/18 05:53 08/17/18 05:53 08/17/18 05:53 08/17/18 05:53 08/17/18 05:53 - Notes Notes: GENERAL: Alert, interacts well. No acute distress. HEAD: Normocephalic, atraumatic. EYES: Pupils equal, round, and reactive to light. Extraocular movements intact. ENT: Oral mucosa moist, tongue midline. NECK: Full range of motion. Supple. Trachea midline. LUNGS: Coarse breath sounds. No respiratory distress. Exquisitely tender to palpate the right anterior chest wall. HEART: Regular rate and rhythm. No murmurs, gallops, or rubs. ABDOMEN: Soft, obese, non tender. Non-distended. Bowel sounds present in all 4 quadrants. No guarding, rigidity, or rebound. EXTREMITIES: Moves all 4 extremities spontaneously. No edema, radial and dorsalis pedis pulses 2/4 bilaterally. No cyanosis. Complains of pain when reaching upwards with right arm. NEUROLOGICAL: Alert and oriented x3. Normal speech. PSYCH: Normal affect, normal mood. SKIN: Warm, dry, normal turgor. No rashes or lesions noted. Course - Vital Signs Vital signs: Temp Pulse Resp BP Pulse Ox 98.3 F 105 H 18 141/90 H 100 08/17/18 07:26 08/17/18 05:53 08/17/18 07:01 08/17/18 07:01 08/17/18 07:01 Discharge - Discharge Clinical Impression: Muscle strain of anterior chest wall Condition: Stable Disposition: HOME, SELF-CARE Additional Instructions: Chest Wall Pain Your chest pain has been diagnosed as coming from the chest wall. This is often caused by straining the muscles or joints in the chest during physical activity, direct trauma, coughing, or vigorous vomiting. Rest from strenuous physical activity. This kind of chest pain is usually made worse by movement of the chest. Depending on the symptoms, we may prescribe medicine for pain, muscle relaxation, and antiinflammatory effects. If the pain is new, and seems to be due to muscle strain, cold packs can help. Otherwise, apply gentle warmth to the painful area for 15 minutes every hour or two. You should contact the doctor immediately if things change. Further evaluation is needed if you develop a fever or cough, if the nature of the pain changes, or if you become short of breath. Start taking the Flexeril muscle relaxer this afternoon. Start taking the prednisone tomorrow. Follow-up with your doctor if not improving. RETURN TO THE EMERGENCY ROOM IF ANY NEW OR WORSENING SYMPTOMS. Prescriptions: Cyclobenzaprine HCl [Flexeril 5 mg Tablet] 5 mg PO TID PRN #15 tablet PRN Reason: Prednisone [Deltasone 10 mg Tablet] 10 mg PO TID #15 tablet Forms: Special Work Note Scribe Attestation: 08/17/18 07:04 I personally performed the services described in the documentation, reviewed and edited the documentation which was dictated to the scribe in my presence, and it accurately records my words and actions. I personally performed the services described in the documentation, reviewed and edited the documentation which was dictated to the scribe in my presence, and it accurately records my words and actions.
== END 2018-08-17 07:29 | disposition home or self-care (01) ==
LOC: ER 05:49
DX: S29.011A Strain of muscle and tendon of front wall of thorax, initial encounter (principal); R07.9 Chest pain, unspecified; R05 Cough; X58.XXXA Exposure to other specified factors, initial encounter; Z79.899 Other long term (current) drug therapy; F17.210 Nicotine dependence, cigarettes, uncomplicated; I10 Essential (primary) hypertension
CPT/HCPCS: 99284; J3490; J7512

== ENCOUNTER 2018-08-18 16:35 | Emergency (ER) | payer MEDICAID ==
[2018-08-18 16:48] VITALS: BP 125/77
[2018-08-18] MEDS ORDERED: LIDOCAINE 5% (700 MG) TRANSDERMAL ADH..PATCH TP ONE (18:11)
[2018-08-18] MEDS ORDERED: ACETAMINOPHEN 325 MG TABLET PO ONE (18:11)
--- NOTE | 2018-08-18 18:14 | ER Document Report ---
Addendum entered and electronically signed by KATHERINE GOTTI NP 08/18/18 18:32: Course - Re-evaluation Re-evalutation: 08/18/18 18:31 During the initial triage interview patient reports that she had taken a [place] for her pain relief 3 hours ago. Patient had been seen here previously and given a prescription for muscle relaxant as well. PCT Xu states that when patient was brought in to have labs drawn that whenever she relies she was only going to get Tylenol in the triage area she decided to leave and got out of the wheelchair and ambulated out of the department. - Vital Signs Vital signs: Temp Pulse Resp BP Pulse Ox 97.8 F 98 22 H 125/77 98 08/18/18 16:45 08/18/18 16:45 08/18/18 16:45 08/18/18 16:45 08/18/18 16:45 Original Note: ED Medical Screen (RME) - General Chief Complaint: Abdominal Pain Stated Complaint: DIFFICULTY BREATHING Time Seen by Provider: 08/18/18 18:06 Mode of Arrival: Wheelchair Information source: Patient Notes: Patient presents complaining of right upper quadrant abdominal pain right lower chest pain for the past 5 days. Patient complains of pain with deep inspiration. Patient does report a cough for the past week. No fever. This is patient's third visit this week for this problem. hx: Insomnia, anxiety, cholecystectomy, , tubal ligation, PYROTECHNIC MIXER shunt I have greeted and performed a rapid initial assessment of this patient. A comprehensive ED assessment and evaluation of the patient, analysis of test results and completion of the medical decision making process will be conducted by additional ED providers. TRAVEL OUTSIDE OF THE [place] IN LAST 30 DAYS: No - Related Data Allergies/Adverse Reactions: hydroxyzine Allergy (Verified 08/18/18 18:04) ibuprofen Allergy (Verified 08/18/18 18:04) ketorolac [From Toradol] Allergy (Verified 08/18/18 18:04) tramadol Allergy (Verified 08/18/18 18:04) Past Medical History - Social History Family history: Reviewed & Not Pertinent - Past Medical History Cardiac Medical History: Reports: Hx Hypertension Renal/ Medical History: Reports: Hx Kidney Stones. Denies: Hx Peritoneal Dialysis Musculoskeltal Medical History: Reports Hx Musculoskeletal Deformity, Reports Hx Musculoskeletal Trauma Psychiatric Medical History: Reports: Hx Anxiety, Hx Depression - anxiety Traumatic Medical History: Reports: Hx Fractures - Left ankle Past Surgical History: Reports: Hx Section - x3, Hx Cholecystectomy, Hx Neurologic Surgery - PYROTECHNIC MIXER SHUNT, Hx Orthopedic Surgery - left ankle x1, right ankle x6, Hx Tubal Ligation, Hx PYROTECHNIC MIXER Shunt, Other - Lap band and removal - Immunizations Immunizations up to date: Yes Hx Diphtheria, Pertussis, Tetanus Vaccination: Yes Physical Exam - Vital signs Vitals: Temp Pulse Resp BP Pulse Ox 97.8 F 98 22 H 125/77 98 08/18/18 16:45 08/18/18 16:45 08/18/18 16:45 08/18/18 16:45 08/18/18 16:45 - Respiratory Respiratory status: No respiratory distress Chest status: Pain on movement, Pain with deep breathing Breath sounds: Nonproductive cough Course - Vital Signs Vital signs: Temp Pulse Resp BP Pulse Ox 97.8 F 98 22 H 125/77 98 08/18/18 16:45 08/18/18 16:45 08/18/18 16:45 08/18/18 16:45 08/18/18 16:45
== END 2018-08-18 18:30 | disposition left against medical advice (07) ==
LOC: ER 16:35
DX: Z53.21 Procedure and treatment not carried out due to patient leaving prior to being seen by health care provider (principal); R10.9 Unspecified abdominal pain; R06.02 Shortness of breath; R10.12 Left upper quadrant pain; R07.9 Chest pain, unspecified; R05 Cough; I10 Essential (primary) hypertension
CPT/HCPCS: 99281

== ENCOUNTER 2018-09-18 09:10 | Emergency (ER) | payer MEDICAID ==
[2018-09-18 09:19] VITALS: BP 148/87
[2018-09-18] MEDS ORDERED: DEXAMETHASONE SOD PHOS INJ 10 MG/1 ML VIAL IM ONE (09:46)
[2018-09-18] MEDS ORDERED: LIDOCAINE 5% (700 MG) TRANSDERMAL ADH..PATCH TP ONE (09:46)
--- NOTE | 2018-09-18 09:50 | ER Document Report ---
HPI - HPI Patient complains to provider of: LBP Time Seen by Provider: 09/18/18 09:35 Pain Level: 4 Context: 33-year-old female with history of hydrocephalus with [employer]ISS[employer] shunt and "19 lumbar punctures" presents to the emergency department with chief complaint of low back pain. 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 She states that the pain is in her left side and occasionally radiates down her left leg. She denies urinary retention, bowel incontinence, saddle paresthesia, numbness/tingling/paresthesias/paralysis in any of her extremities, denies fevers, denies IV drug use. No other complaints. - REPRODUCTIVE Reproductive: DENIES: : Past Medical History - Social History Smoking Status: Never Smoker Family History: Reviewed & Not Pertinent - Past Medical History Cardiac Medical History: Reports: Hx Hypertension Renal/ Medical History: Reports: Hx Kidney Stones. 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 No acute distress. HEAD: Normocephalic, atraumatic. EYES: Pupils equal and round. Extraocular movements intact. ENT: Oral mucosa moist, tongue midline. NECK: Full range of motion. Trachea midline. ABDOMEN: soft, non-tender. No distention. Bowel sounds present EXTREMITIES: Moves all 4 extremities spontaneously. No edema, No cyanosis. BACK: Tenderness to palpation along the left sacroiliac joint line patient is able to ambulate with pain. PSYCH: Normal affect, normal mood. SKIN: Warm, dry, normal turgor. No rashes or lesions noted. - INFECTION CONTROL TRAVEL OUTSIDE OF THE [place] IN LAST 30 DAYS: No Course - Re-evaluation Re-evalutation: 09/18/18 09:49 Generally well-appearing patient with symptoms consistent with acute low back pain with intermittent radiculopathy. Patient cannot take NSAIDs due to allergy. I have given her a Lidoderm patch and dexamethasone 10 mg IM as she says she can take steroids without problem. Patient given strict return precautions and instructions. - Vital Signs Vital signs: Temp Pulse Resp BP Pulse Ox 97.7 F 86 16 148/87 H 96 09/18/18 09:18 09/18/18 09:18 09/18/18 09:18 09/18/18 09:18 09/18/18 09:18 Discharge - Discharge Clinical Impression: Lower back pain Qualifiers: Chronicity: acute Back pain laterality: left Sciatica presence: with sciatica Sciatica laterality: sciatica of left side Qualified Code(s): M54.42 - Lumbago with sciatica, left side Condition: Good Disposition: HOME, SELF-CARE Instructions: Low Back Pain ([facility]), Muscle Strain ([facility]), Warm Packs ([facility]) Additional Instructions: You have been seen in the Emergency Department (ED) today for back pain. Your workup and exam have not shown any acute abnormalities and you are likely suffering from muscle strain or possible problems with your discs, but there is no treatment that will fix your symptoms at this time. Please take Tylenol 1000 mg every 6 hours for pain/inflammation. You should also purchase a local lidocaine cream such as "aspercreme with lidocaine" and use per bottle instructions to the affected area. Apply heat to the area as often as you are able. Continue to keep active and avoid prolonged periods of bed rest. Please follow up with your doctor as soon as possible regarding today's ED visit and your back pain. Return to the ED for worsening back pain, fever, weakness or numbness of either leg, or if you develop either (1) an inability to urinate or have bowel movements, or (2) loss of your ability to control your bathroom functions (if you start having "accidents"), or if you develop other new symptoms that concern you.concern you. Forms: Return to Work
== END 2018-09-18 10:05 | disposition home or self-care (01) ==
LOC: ER 09:10
DX: M54.42 Lumbago with sciatica, left side (principal); I10 Essential (primary) hypertension; Z87.442 Personal history of urinary calculi; Z90.49 Acquired absence of other specified parts of digestive tract; Z98.51 Tubal ligation status; Z98.2 Presence of cerebrospinal fluid drainage device
CPT/HCPCS: 99283; 96372; J3490; J1100

== ENCOUNTER 2018-11-17 19:35 | Emergency (ER) | payer SELFPAY ==
[2018-11-17 20:01] VITALS: BP 149/99
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
== END 2018-11-17 22:40 | disposition left against medical advice (07) ==
LOC: ER 19:35
DX: Z53.21 Procedure and treatment not carried out due to patient leaving prior to being seen by health care provider (principal); R51 Headache; M54.2 Cervicalgia; R11.0 Nausea; R53.1 Weakness; F17.210 Nicotine dependence, cigarettes, uncomplicated; I10 Essential (primary) hypertension

== ENCOUNTER 2019-01-15 10:21 | Emergency (ER) | payer SELFPAY ==
--- NOTE | 2019-01-15 12:34 | ER Document Report ---
ED Medical Screen (RME) - General Chief Complaint: Vaginal Pain Stated Complaint: VAGINAL PAIN AND ITCHING Time Seen by Provider: 01/15/19 12:33 Mode of Arrival: Ambulatory Information source: Patient Notes: 33-year-old female presented to ED with complaint of vaginal and pelvic pain and itching. She states she was diagnosed with herpes when she was 15 and she really thinks it is what the pain is. Denies any depth vaginal discharge. States she does have pain with intercourse. Last menstrual cycle January 03 and she had a bilateral tubal ligation. I have greeted and performed a rapid initial assessment of this patient. A comprehensive ED assessment and evaluation of the patient, analysis of test results and completion of medical decision making process will be conducted by an additional ED providers. TRAVEL OUTSIDE OF THE [place] IN LAST 30 DAYS: No - Related Data Allergies/Adverse Reactions: hydroxyzine Allergy (Verified 09/18/18 09:13) ibuprofen Allergy (Verified 09/18/18 09:13) ketorolac [From Toradol] Allergy (Verified 09/18/18 09:13) tramadol Allergy (Verified 09/18/18 09:13) Past Medical History - Social History Family history: Reviewed & Not Pertinent - Past Medical History Cardiac Medical History: Reports: Hx Hypertension Renal/ Medical History: Reports: Hx Kidney Stones. 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
[2019-01-15 12:58] LABS: APPEARANCE,URINE CLEAR; BILIRUBIN,URINE NEGATIVE (NEGATIVE); COLOR,URINE YELLOW; GLUCOSE, URINE NEGATIVE (NEGATIVE); KETONES,URINE NEGATIVE (NEGATIVE); LEUKOCYTE ESTERASE,URINE NEGATIVE (NEGATIVE); NITRITE,URINE NEGATIVE (NEGATIVE); PROTEIN,URINE NEGATIVE (NEGATIVE); UROBILINOGEN,URINE NEGATIVE mg/dL (<2.0)
--- NOTE | 2019-01-15 13:42 | ER Document Report ---
HPI - HPI Time Seen by Provider: 01/15/19 12:33 Pain Level: 5 Context: Patient is a 33-year-old female who presents to the emergency department with a chief complaint of vaginal pain. Patient reports at the age of 15 she was diagnosed with genital herpes. Patient reports that since then she has had about 8-10 outbreaks. Patient reports she feels like she is currently having an outbreak. Patient reports she has been under a lot of stress and this seems to exacerbate her outbreaks. Patient reports itching and pain to the external genitalia. Patient reports she feels like she has an aching in bilateral legs and generalized body aches. Patient denies fever. Patient denies vaginal discharge. Patient denies open sores. Patient reports for stable last menstrual cycle was January 03 and she has had a bilateral tubal ligation. - CONSTITUTIONAL Constitutional: DENIES: Fever, Chills - NEURO Neurology: REPORTS: Headache - GASTROINTESTINAL Gastrointestinal: REPORTS: Abdominal Pain - REPRODUCTIVE Reproductive: DENIES: : Past Medical History - General Information source: Patient - Social History Smoking Status: Current Every Day Smoker Lives with: Alone Family History: Reviewed & Not Pertinent Patient has suicidal ideation: No Patient has homicidal ideation: No - Past Medical History Cardiac Medical History: Reports: Hx Hypertension Pulmonary Medical History: Reports: None EENT Medical History: Reports: None Neurological Medical History: Reports: None Endocrine Medical History: Reports: None Renal/ Medical History: Reports: Hx Kidney Stones. Denies: Hx Peritoneal Dialysis Malignancy Medical History: Reports: None GI Medical History: Reports: None Musculoskeletal Medical History: Reports Hx Musculoskeletal Deformity, Reports Hx Musculoskeletal Trauma Skin Medical History: Reports None Psychiatric Medical History: Reports: Hx Anxiety, Hx Depression - anxiety Traumatic Medical History: Reports: Hx Fractures - Left ankle Infectious Medical History: Reports: None Past Surgical History: Reports: Hx Section - x3, Hx Cholecystectomy, Hx Neurologic Surgery - [employer] SHUNT, Hx Orthopedic Surgery - left ankle x1, right ankle x6, Hx Tubal Ligation, Hx [employer] Shunt, Other - Lap band and removal - Immunizations Immunizations up to date: Yes Hx Diphtheria, Pertussis, Tetanus Vaccination: Yes Vertical Provider Document - CONSTITUTIONAL Agree With Documented VS: Yes Exam Limitations: No Limitations General Appearance: No Apparent Distress - INFECTION CONTROL TRAVEL OUTSIDE OF THE [place] IN LAST 30 DAYS: No - HEENT HEENT: Atraumatic, Normal ENT Exam, Normocephalic, PERRLA - NECK Neck: Normal Inspection - RESPIRATORY Respiratory: Breath Sounds Normal, No Respiratory Distress - CARDIOVASCULAR Cardiovascular: Regular Rate, Regular Rhythm - GI/ABDOMEN Gastrointestinal: Abdomen Soft, Abdomen Non-Tender - BACK Back: Normal Inspection - NEURO Level of Consciousness: Awake, Alert, Appropriate - DERM Integumentary: Warm, Dry, No Rash Course - Re-evaluation Re-evalutation: 01/15/19 14:26 Patient's vaginal examination was unremarkable. There were no open lesions. We will place the patient on the antivirals as a prophylaxis as the patient feels like she has feeling like she may have an outbreak. Pelvic specimens pending. 01/15/19 15:34 We will treat the patient for bacterial vaginosis as well as a prophylaxis for a herpes outbreak. Patient verbalized understanding and to return to the emergency department if symptoms worsen. - Vital Signs Vital signs: Temp Pulse Resp BP Pulse Ox 98.8 F 105 H 18 156/97 H 97 01/15/19 10:26 01/15/19 10:26 01/15/19 10:26 01/15/19 10:26 01/15/19 10:26 - Laboratory Laboratory results interpreted by me: 01/15/19 11:16 Urine Blood SMALL H Procedures - Pelvic Exam Pelvic exam Time completed: 14:05 Cultures obtained: Yes Wet prep obtained: Yes Herpes culture obtained: No - No open lesions Bimanual exam performed: No Witnessed by: Canelo GODINEZ Notes: 01/15/19 14:23 External genitalia was very minimally erythematous without lesions, excoriation, discharge or edema. Patient did report having some tenderness to the outside of the genitalia with palpation. Patient tolerated the insertion of the speculum fairly well. I was able to visualize the cervix which was closed, there was no significant discharge in the vaginal vault. Patient tolerated well. Discharge - Discharge Clinical Impression: Vaginal pain, Bacterial vaginosis Condition: Stable Disposition: HOME, SELF-CARE Additional Instructions: Today you are seen in the emergency department for vaginal pain. You did not have any indication of open lesions are consistent with herpes. I am prescribing you a prophylactic dose of antiviral. You do have arterial vaginosis. This is a condition due to the overgrowth of bacteria in the vagina. Typically the treatment for this is Flagyl. Do not drink alcohol while on this medication. Please return to emergency department if you develop any new or worsening symptoms. Vaginosis, Bacterial Your exam shows you have bacterial vaginosis. This condition is due to an overgrowth of bacteria in the vagina. Symptoms may include vaginal itching or pain, a smelly discharge, and sometimes burning with urination. Normally this is not transmitted by sexual contact. Vaginosis can be treated with oral or topical antibiotics. Metronidazole (Flagyl) pills are usually effective. Topical vaginal creams include Cleocin and Metro-Gel. You should avoid sexual contact until your symptoms are all better. Call the doctor if you develop pelvic pain, fever, or problems with urination, or if you don't improve as expected. Prescriptions: Metronidazole [Flagyl 500 mg Tablet] 500 mg PO BID 7 Days #14 tablet Valacyclovir HCl [Valtrex] 500 mg PO BID 3 Days #6 tablet Forms: Return to Work
[2019-01-15 14:29] LABS: BACTERIA (WET MOUNT) 3+ BACTERIA SEEN; EPITHELIALS (WET MOUNT) 3+ EPITHELIALS SEEN; RBCS (WET MOUNT) NO RBCS SEEN; T.VAGINALIS (WET MOUNT) NO TRICHOMONAS SEEN; WBCS (WET MOUNT) 1+ WBCS SEEN; YEAST (WET MOUNT) NO YEAST SEEN
[2019-01-15] MEDS ORDERED: VALACYCLOVIR HCL 500 MG TABLET PO ONE (15:02)
[2019-01-15 15:31] VITALS: BP 166/82
[2019-01-15 15:54] LABS: CHLAM PCR NOT DETECTED (NOT DETECT)
== END 2019-01-15 15:29 | disposition home or self-care (01) ==
LOC: ER 10:21
DX: N76.0 Acute vaginitis (principal); B96.89 Other specified bacterial agents as the cause of diseases classified elsewhere; R10.2 Pelvic and perineal pain; I10 Essential (primary) hypertension; F17.200 Nicotine dependence, unspecified, uncomplicated; Z90.49 Acquired absence of other specified parts of digestive tract; Z98.51 Tubal ligation status
CPT/HCPCS: 81001; 81025; 87210; 87491; 87591; 99283

== ENCOUNTER 2019-02-12 02:30 | Emergency (ER) | payer SELFPAY ==
[2019-02-12] MEDS ORDERED: LORAZEPAM 1 MG TABLET PO ONE (03:00)
--- NOTE | 2019-02-12 03:33 | RADIOLOGY REPORT (SQ) ---
EXAM DESCRIPTION: XR CHEST 2 VIEWS COMPLETED DATE/TME: 02/12/2019 03:00 CLINICAL HISTORY: sob/URI COMPARISON: None. FINDINGS: Frontal and lateral views of the chest. Cardiomediastinal silhouette: Normal size and contour. Leads overlie the chest. Right sided ventriculoperitoneal shunt. Lungs: No consolidation, pneumothorax, or pleural effusion. Bones: No acute osseous abnormality. Upper abdomen: Prior cholecystectomy. IMPRESSION: 1. No acute pneumonic process identified.
--- NOTE | 2019-02-12 05:01 | ER Document Report ---
ED General - General Chief Complaint: Shortness Of Breath Stated Complaint: TROUBLE BREATHING Time Seen by Provider: 02/12/19 03:00 Notes: Patient is a 33-year-old female presents to the emergency department for respiratory distress. Patient voices she was playing video games with a friend when she started feeling anxious. States she started breathing very heavy became short of breath which is why she presents to the emergency room. Patient voices she used to be on Seroquel and Xanax for depression and anxiety. States she has been 6 months without her medications as she recently lost her insurance. Patient voices she also has generalized cough and congestion for the last couple of days. Still denying any history of asthma or albuterol use. Denying any fevers. Patient voices she is currently on her menstrual cycle. TRAVEL OUTSIDE OF THE [place] IN LAST 30 DAYS: No - Related Data Allergies/Adverse Reactions: hydroxyzine Allergy (Verified 09/18/18 09:13) ibuprofen Allergy (Verified 09/18/18 09:13) ketorolac [From Toradol] Allergy (Verified 09/18/18 09:13) tramadol Allergy (Verified 09/18/18 09:13) Past Medical History - General Information source: Patient - Social History Smoking Status: Current Every Day Smoker Chew tobacco use (# tins/day): No Frequency of alcohol use: Occasional Drug Abuse: None Family History: Reviewed & Not Pertinent Patient has suicidal ideation: No Patient has homicidal ideation: No - Past Medical History Cardiac Medical History: Reports: Hx Hypertension Renal/ Medical History: Reports: Hx Kidney Stones. Denies: Hx Peritoneal Dialysis Musculoskeletal Medical History: Reports Hx Musculoskeletal Deformity, Reports Hx Musculoskeletal Trauma Psychiatric Medical History: Reports: Hx Anxiety, Hx Depression - anxiety Traumatic Medical History: Reports: Hx Fractures - Left ankle Past Surgical History: Reports: Hx Section - x3, Hx Cholecystectomy, Hx Neurologic Surgery - MOLD INJECTOR SHUNT, Hx Orthopedic Surgery - left ankle x1, right ankle x6, Hx Tubal Ligation, Hx MOLD INJECTOR Shunt, Other - Lap band and removal - Immunizations Immunizations up to date: Yes Hx Diphtheria, Pertussis, Tetanus Vaccination: Yes Review of Systems - Review of Systems Constitutional: denies: Fever EENT: See HPI Cardiovascular: See HPI Respiratory: See HPI Gastrointestinal: No symptoms reported Genitourinary: No symptoms reported Female Genitourinary: No symptoms reported Musculoskeletal: No symptoms reported Skin: No symptoms reported Hematologic/Lymphatic: No symptoms reported Neurological/Psychological: No symptoms reported Physical Exam - Vital signs Vitals: Temp Pulse Resp BP Pulse Ox 97.6 F 111 H 25 H 123/85 97 02/12/19 02:42 02/12/19 02:42 02/12/19 02:42 02/12/19 02:42 02/12/19 02:42 - Notes Notes: GENERAL: Alert, interacts well. No acute distress. HEAD: Normocephalic, atraumatic. EYES: Pupils equal, round, and reactive to light. Extraocular movements intact. ENT: Oral mucosa moist, tongue midline. NECK: Full range of motion. Supple. Trachea midline. LUNGS: Clear to auscultation bilaterally, no wheezes, rales, or rhonchi. Tachypnea, hyperventilating. HEART: Regular rate and rhythm. No murmur ABDOMEN: Soft, non-tender. Non-distended. Bowel sounds present in all 4 quadrants. EXTREMITIES: Moves all 4 extremities spontaneously. No edema, normal radial and dorsalis pedis pulses bilaterally. No cyanosis. BACK: no cervical, thoracic, lumbar midline tenderness. No saddle anesthesia, n ormal distal neurovascular exam. NEUROLOGICAL: Alert and oriented x3. Normal speech. cranial nerves II through XII grossly intact PSYCH: Normal affect, normal mood. SKIN: Warm, dry, normal turgor. No rashes or lesions noted. Course - Re-evaluation Re-evalutation: Chest X-Ray 02/12/19 03:00 IMPRESSION: 1. No acute pneumonic process identified. Patient's lung sounds are clear and equal on examination. Patient does appear to be hyperventilating. Voices she does feel very anxious. States she is unsure why she feels anxious that she was just playing video games with a friend. Patient's denying any suicidal or homicidal ideations. Patient was easily directed and able to calm down her breathing. Patient voices she has had upper respiratory symptoms the last couple of days. Is concerned she may have pneumonia. Chest x-ray showed no signs of pneumonia, patient was treated with 1 mg of oral Ativan. Patient is no longer Hyperventilating. Her heart rate is now 90, respiratory rate 14, SPO2 96 on room air. Discussed with her close follow-up with art, at [facility]. Patient voices she is to get her medications from porch she is familiar with them. Patient stable for discharge. - Vital Signs Vital signs: Temp Pulse Resp BP Pulse Ox 97.6 F 111 H 25 H 123/85 97 02/12/19 02:42 02/12/19 02:42 02/12/19 02:42 02/12/19 02:42 02/12/19 02:42 Discharge - Discharge Clinical Impression: Anxiety, Hyperventilating Condition: Stable Disposition: HOME, SELF-CARE Instructions: Anxiety ([facility]) Additional Instructions: To discussed you have been seen and treated in the emergency department for potential anxiety. Please also make sure you follow-up at [facility], [facility] for continued care and evaluation. Please return to the emergency department for any concerns. Referrals: [facility] [Provider Group] - Follow up as needed [facility] [Provider Group] - Follow up as needed [facility] [Provider Group] - Follow up as needed
[2019-02-12 05:20] VITALS: BP 140/82
--- NOTE | 2019-02-12 11:14 | EKG REPORT ---
SEVERITY:- OTHERWISE NORMAL ECG - SINUS TACHYCARDIA : Confirmed by: Kinsey Oconnor MD 12-Feb-2019 11:13:31
== END 2019-02-12 05:20 | disposition home or self-care (01) ==
LOC: ER 02:30
DX: F41.9 Anxiety disorder, unspecified (principal); R06.4 Hyperventilation; R05 Cough; F17.200 Nicotine dependence, unspecified, uncomplicated; I10 Essential (primary) hypertension; Z88.8 Allergy status to other drugs, medicaments and biological substances; Z88.5 Allergy status to narcotic agent
CPT/HCPCS: 71046; 93005; 93010; 99285

== ENCOUNTER 2019-03-02 18:09 | Emergency (ER) | payer SELFPAY ==
[2019-03-02 19:34] VITALS: BP 154/81
--- NOTE | 2019-03-02 19:46 | ER Document Report ---
HPI - HPI Time Seen by Provider: 03/02/19 19:29 Pain Level: 3 Context: Patient is a 33-year-old female who presents to the emergency department with a chief complaint of right ankle pain. Patient has had surgery on her ankles in the past. Patient is also had history of an infection in her ankle in the past. She denies any fever, body aches, or any chills. Denies any trauma. - CONSTITUTIONAL Constitutional: DENIES: Fever, Chills - EENT EENT: DENIES: Sore Throat, Ear Pain, Eye problems - NEURO Neurology: DENIES: Headache, Weakness, Vision blurred, Dizzinesss / Vertigo - CARDIOVASCULAR Cardiovascular: DENIES: Chest pain - RESPIRATORY Respiratory: DENIES: Trouble Breathing, Coughing - GASTROINTESTINAL Gastrointestinal: DENIES: Abdominal Pain, Black / Bloody Stools - URINARY Urinary: DENIES: Dysuria, Urgency, Frequency - REPRODUCTIVE Reproductive: DENIES: : - MUSCULOSKELETAL Musculoskeletal: REPORTS: Extremity pain - right ankle Past Medical History - Social History Smoking Status: Never Smoker Chew tobacco use (# tins/day): No Frequency of alcohol use: None Drug Abuse: None Family History: Reviewed & Not Pertinent Patient has suicidal ideation: No Patient has homicidal ideation: No - Past Medical History Cardiac Medical History: Reports: Hx Hypertension Renal/ Medical History: Reports: Hx Kidney Stones. Denies: Hx Peritoneal Dialysis Musculoskeletal Medical History: Reports Hx Musculoskeletal Deformity, Reports Hx Musculoskeletal Trauma Psychiatric Medical History: Reports: Hx Anxiety, Hx Depression - anxiety Traumatic Medical History: Reports: Hx Fractures - Left ankle Past Surgical History: Reports: Hx Section - x3, Hx Cholecystectomy, Hx Neurologic Surgery - HEALTH INSURANCE AGENT SHUNT, Hx Orthopedic Surgery - left ankle x1, right ankle x6, Hx Tubal Ligation, Hx HEALTH INSURANCE AGENT Shunt, Other - Lap band and removal - Immunizations Immunizations up to date: Yes Hx Diphtheria, Pertussis, Tetanus Vaccination: Yes Vertical Provider Document - CONSTITUTIONAL Agree With Documented VS: Yes Exam Limitations: No Limitations General Appearance: No Apparent Distress - INFECTION CONTROL TRAVEL OUTSIDE OF THE [place] IN LAST 30 DAYS: No - HEENT HEENT: Atraumatic, Normocephalic, PERRLA - NECK Neck: Normal Inspection - RESPIRATORY Respiratory: No Respiratory Distress - CARDIOVASCULAR Cardiovascular: Regular Rhythm Pulses: Normal: Radial - MUSCULOSKELETAL/EXTREMETIES Musculoskeletal/Extremeties: FROM - NEURO Level of Consciousness: Awake, Alert, Appropriate - DERM Integumentary: Warm, Dry - Very dry right ankle, Rash - At base of heel near calcaneus Course - Re-evaluation Re-evalutation: 03/02/19 19:46 Patient presents with symptoms most consistent with an acute cellulitis. Vitals within normal limits. Patient does not meet sepsis criteria is overall very well in appearance. Exam and history are not consistent with DVT. Patient will be started on coverage for both staph and strep. At this time will discharge with return precautions and follow-up recommendations. Verbal discharge instructions given a the bedside and opportunity for questions given. Medication warnings reviewed. Patient is in agreement with this plan and has verbalized understanding of return precautions and the need for primary care follow-up in the next 24-72 hours. - Vital Signs Vital signs: Temp Pulse Resp BP Pulse Ox 97.9 F 106 H 18 154/81 H 98 03/02/19 19:32 03/02/19 19:32 03/02/19 19:32 03/02/19 19:32 03/02/19 19:32 Discharge - Discharge Clinical Impression: Cellulitis Qualifiers: Site of cellulitis: extremity Site of cellulitis of extremity: lower extremity Laterality: right Qualified Code(s): L03.115 - Cellulitis of right lower limb Condition: Stable Disposition: HOME, SELF-CARE Additional Instructions: The rash is likely due to infection of your skin. You need to take the antibiotics as prescribed. Do not stop even if the rash goes away until you have completed all the antibiotics. The area of redness was traced out here in the emergency department with a marking pen. You need to return to emergency department if the redness spreads outside of this area by more than 2 cm in any direction. You should also return if you develop fevers with temperature greater than 101, persistent vomiting, worsening pain, or have any other symptoms that are concerning to you. Prescriptions: Cephalexin Monohydrate [Keflex 500 mg Capsule] 500 mg PO Q6H 7 Days #28 capsule Forms: Return to Work Referrals: [facility] [Provider Group] - Follow up in 1 week
[2019-03-02] MEDS ORDERED: HYDROCODONE/ACETAMINOPHEN 5-325 MG (6 TAB/ER DISP) PO PRN (19:47)
[2019-03-02] MEDS ORDERED: CEPHALEXIN 500 MG CAPSULE PO ONE (19:47)
== END 2019-03-02 20:00 | disposition home or self-care (01) ==
LOC: ER 18:09
DX: L03.115 Cellulitis of right lower limb (principal); M25.571 Pain in right ankle and joints of right foot; I10 Essential (primary) hypertension; Z98.890 Other specified postprocedural states
CPT/HCPCS: 99283

== ENCOUNTER 2019-04-10 23:22 | Emergency (ER) | payer SELFPAY ==
[2019-04-11 00:02] LABS: ABSOLUTE BASOPHILS # (AUTO) 0.1 10^3/uL (0.0-0.2); ABSOLUTE EOSINOPHILS # (AUTO) 0.1 10^3/uL (0.0-0.6); ABSOLUTE LYMPHOCYTES (AUTO) 2.7 10^3/uL (0.5-4.7); ABSOLUTE MONOCYTES (AUTO) 0.5 10^3/uL (0.1-1.4); ABSOLUTE NEUT (AUTO) 7.2 10^3/uL (1.7-8.2); BASOPHILS % (AUTO) 1.1 % (0-2); EOSINOPHILS % (AUTO) 1.1 % (0-6); HEMATOCRIT 41.6 % (36.0-47.0); HEMOGLOBIN 14.1 g/dL (12.0-15.5); LYMPHOCYTES % (AUTO) 25.9 % (13-45); MEAN CORPUSCULAR HEMOGLOBIN 29.1 pg (27.0-33.4); MEAN CORPUSCULAR HGB CONC 33.9 g/dL (32.0-36.0); MEAN CORPUSCULAR VOLUME 86 fl (80-97); MONOCYTES % (AUTO) 4.4 % (3-13); PLATELET COUNT 275 10^3/uL (150-450); RED BLOOD COUNT 4.86 10^6/uL (3.72-5.28); RED CELL DISTRIBUTION WIDTH 14.6 % (11.5-14.0); SEGMENTED NEUTROPHILS % (AUTO) 67.5 % (42-78); TOTAL CELLS COUNTED % (AUTO) 100 %; WHITE BLOOD COUNT 10.6 10^3/uL (4.0-10.5)
[2019-04-11 00:23] LABS: ALBUMIN 4.3 g/dL (3.5-5.0); ALCOHOL 105 mg/dL (NONE DETECTED); ALKALINE PHOSPHATASE 64 U/L (38-126); ANION GAP 10 (5-19); ASPARTATE AMINO TRANSFERASE 19 U/L (14-36); BILIRUBIN,DIRECT 0.2 mg/dL (0.0-0.4); BILIRUBIN,TOTAL 0.4 mg/dL (0.2-1.3); BLOOD UREA NITROGEN 12 mg/dL (7-20); CALCIUM 9.3 mg/dL (8.4-10.2); CARBON DIOXIDE 23 mmol/L (22-30); CHLORIDE 105 mmol/L (98-107); GLUCOSE 132 mg/dL (75-110); POTASSIUM 4.3 mmol/L (3.6-5.0); TOTAL PROTEIN 7.6 g/dL (6.3-8.2)
[2019-04-11 00:25] LABS: ACETAMINOPHEN < 10 ug/mL (10-30); SALICYLATE < 1.0 mg/dL (2.0-20.0)
--- NOTE | 2019-04-11 03:41 | ER Document Report ---
ED General - General Chief Complaint: Overdose Stated Complaint: OVERDOSE Time Seen by Provider: 04/11/19 01:48 Mode of Arrival: Ambulatory Information source: Patient TRAVEL OUTSIDE OF THE [place] IN LAST 30 DAYS: No - HPI Onset: Other - unknown onset Onset/Duration: Gradual Quality of pain: Other - patient has chronic ankle pain Severity: Moderate Pain Level: 2 Associated symptoms: Other - Depression, Anxiety, Suicidal Exacerbated by: Other - stress and anxiety Similar symptoms previously: No Recently seen / treated by doctor: No Notes: 33 year old female with a history of Anxiety, Depression, Polysubstance abuse here for a suicide attempt. The patient took an unknown about of Oxycodone and Xanax and she also admitted to drinking. The patient says she is under a lot of stress due to family issues. The patient says she took the prescription medications from her roommate who is apparently terminally ill. - Related Data Allergies/Adverse Reactions: hydroxyzine Allergy (Verified 09/18/18 09:13) ibuprofen Allergy (Verified 09/18/18 09:13) ketorolac [From Toradol] Allergy (Verified 09/18/18 09:13) tramadol Allergy (Verified 09/18/18 09:13) Past Medical History - Social History Smoking Status: Never Smoker Frequency of alcohol use: Social Drug Abuse: Prescription drugs Lives with: Other - has a roommate who is terminally ill - she took the pills from the roommate. Family History: Reviewed & Not Pertinent Patient has suicidal ideation: Yes Patient has homicidal ideation: No - Past Medical History Cardiac Medical History: Reports: Hx Hypertension Renal/ Medical History: Reports: Hx Kidney Stones. Denies: Hx Peritoneal Dialysis Musculoskeletal Medical History: Reports Hx Musculoskeletal Deformity, Reports Hx Musculoskeletal Trauma Psychiatric Medical History: Reports: Hx Anxiety, Hx Depression - anxiety Traumatic Medical History: Reports: Hx Fractures - Left ankle Past Surgical History: Reports: Hx Section - x3, Hx Cholecystectomy, Hx Neurologic Surgery - NETWORK OPERATIONS ANALYST SHUNT, Hx Orthopedic Surgery - left ankle x1, right ankle x6, Hx Tubal Ligation, Hx NETWORK OPERATIONS ANALYST Shunt, Other - Lap band and removal - Immunizations Immunizations up to date: Yes Hx Diphtheria, Pertussis, Tetanus Vaccination: Yes Review of Systems - Review of Systems Constitutional: Other - somnolence EENT: No symptoms reported Cardiovascular: No symptoms reported Respiratory: No symptoms reported Gastrointestinal: No symptoms reported Genitourinary: No symptoms reported Female Genitourinary: No symptoms reported Musculoskeletal: No symptoms reported Skin: No symptoms reported Hematologic/Lymphatic: No symptoms reported Neurological/Psychological: Depression, Anxiety, Suicidal ideation Physical Exam - Vital signs Vitals: Resp Pulse Ox 18 98 04/10/19 23:43 04/10/19 23:43 - Notes Notes: GENERAL: Somnolent but arousable. Well-nourished and in no acute distress. HEAD: Atraumatic, normocephalic. EYES: Pupils equal round and reactive to light, extraocular movements intact, sclera anicteric, conjunctiva are normal. ENT: TMs normal, nares patent, oropharynx clear without exudates. Moist mucous membranes. NECK: Normal range of motion, supple without lymphadenopathy or JVD. LUNGS: Breath sounds clear to auscultation bilaterally and equal. No wheezes rales or rhonchi. HEART: Regular rate and rhythm without murmurs, rubs or gallops. ABDOMEN: Soft, nontender, normoactive bowel sounds. No guarding, no rebound. No masses appreciated. EXTREMITIES: Normal range of motion, no pitting or edema. No clubbing or cyanosis. NEUROLOGICAL: Cranial nerves II through XII grossly intact. Normal speech, normal gait. PSYCH: Normal mood, normal affect. Patient admits to SI and to trying to overdose. Patient admits to prior substance abuse. SKIN: Warm, Dry, normal turgor, no rashes or lesions noted. Course - Re-evaluation Re-evalutation: 04/11/19 03:39 The patient took an unknown amount of Oxycodone and Xanax in attempt to harm her self. She is noticeably intoxicated and admits to drinking as well as taking the pills. Patient will need to be watched until she is clinically sober and then she will need to be evaluated by psych due to her suicidal behavior. I filled out the IVC paperwork on the patient. Patient signed out to oncoming ER provider at shift change since she is still altered due to her drug use and since psych still hadnt seen her. 04/11/19 03:45 - Vital Signs Vital signs: Temp Pulse Resp BP Pulse Ox 98.4 F 109 H 19 117/59 L 96 04/10/19 23:54 04/10/19 23:54 04/11/19 02:01 04/11/19 02:01 04/11/19 02:01 - Laboratory Result Diagrams: 04/10/19 23:45 04/10/19 23:45 Laboratory results interpreted by me: 04/10/19 04/10/19 23:45 23:45 WBC 10.6 H RDW 14.6 H Glucose 132 H Salicylates < 1.0 L Acetaminophen < 10 L Discharge - Discharge Clinical Impression: Suicidal ideation Overdose Qualifiers: Encounter type: initial encounter Injury intent: intentional self-harm Qualified Code(s): T50.902A - Poisoning by unspecified drugs, medicaments and biological substances, intentional self-harm, initial encounter Condition: Stable Disposition: PSYCH HOSP/UNIT
[2019-04-11 06:35] LABS: APPEARANCE,URINE SLIGHTLY-CLOUDY; BILIRUBIN,URINE NEGATIVE (NEGATIVE); COLOR,URINE YELLOW; GLUCOSE, URINE NEGATIVE (NEGATIVE); KETONES,URINE NEGATIVE (NEGATIVE); LEUKOCYTE ESTERASE,URINE NEGATIVE (NEGATIVE); NITRITE,URINE NEGATIVE (NEGATIVE); PROTEIN,URINE NEGATIVE (NEGATIVE); URINE SPECIFIC GRAVITY 1.016; UROBILINOGEN,URINE NEGATIVE mg/dL (<2.0)
[2019-04-11 06:42] LABS: URINE AMPHETAMINES SCREEN NEGATIVE; URINE BARBITURATES SCREEN NEGATIVE; URINE COCAINE SCREEN NEGATIVE; URINE MARIJUANA (THC) SCREEN NEGATIVE; URINE METHADONE SCREEN NEGATIVE; URINE PHENCYCLIDINE SCREEN NEGATIVE
[2019-04-11 06:44] LABS: URINE BENZODIAZEPINES SCREEN UNCONFIRMED POSITIVE
--- NOTE | 2019-04-11 09:59 | ER Document Report ---
Doctor's Note Notes: 04/11/19 09:58 I reviewed the chart. I woke the patient from sleep and did examine her. She has a mild tachycardia with a heart rate of 110. She has no physical complaints at this time. Patient is awake alert answering questions appropriately. She does admit to taking oxycodone, Xanax and drinking alcohol last night states that she was attempting to harm herself. Patient states the last time she did something like that with drugs or alcohol was in 2006. She currently denies suicidal or homicidal ideation. She does not appear intoxicated at this time. She is requesting something for "nerves". Patient is medically cleared. discussed with Dr. Beach, attending 04/11/19 12:54 Discussed with psychiatric team, Neva, patient is going to [facility] they are sending someone to come take the patient. The IVC has been rescinded. No medications.
--- NOTE | 2019-04-11 11:21 | EKG REPORT ---
SEVERITY:- NORMAL ECG - SINUS TACHYCARDIA : Confirmed by: Kinsey Oconnor MD 11-Apr-2019 11:20:38
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
[2019-04-11 13:06] VITALS: BP 120/80
== END 2019-04-11 13:30 | disposition home or self-care (01) ==
LOC: ER 23:22
DX: T50.902A Poisoning by unspecified drugs, medicaments and biological substances, intentional self-harm, initial encounter (principal); F32.9 Major depressive disorder, single episode, unspecified; F41.9 Anxiety disorder, unspecified; F19.10 Other psychoactive substance abuse, uncomplicated; I10 Essential (primary) hypertension
CPT/HCPCS: 36415; 80053; 80307; 81001; 85025; 93005; 93010; 99285

== ENCOUNTER 2020-03-22 19:48 | Emergency (ER) | payer SELFPAY ==
[2020-03-22] MEDS ORDERED: MORPHINE SULFATE 10 MG/ML INJ IV ONE (20:39)
--- NOTE | 2020-03-22 20:44 | ER Document Report ---
ED Medical Screen (RME) - General Chief Complaint: Abdominal Pain Stated Complaint: ABDOMINAL PAIN Time Seen by Provider: 03/22/20 20:31 Mode of Arrival: Ambulatory Information source: Patient Notes: HPI; 34-year-old female presents to the emergency room complaining of worsening right upper quadrant pain for the past 2 days. States she is had intermittent abdominal pain for the past year after stopping alcohol and drug use. States she is also been having pasty diarrhea for the past 2 months. Denies any nausea, vomiting, no fevers, no urinary symptoms. No COVID-19 exposure. States has been taking Tylenol without relief. PE: Alert and oriented x3. Lungs: Clear to auscultation without rales, rhonchi, wheezes. Heart: Tachycardic without murmurs, rubs, gallops. I have greeted and performed a rapid initial assessment of this patient. A comprehensive ED assessment and evaluation of the patient, analysis of test results and completion of the medical decision making process will be conducted by additional ED providers. I have specifically instructed the patient or family members with the patient to immediately return to any nursing staff should anything change in the patient's condition or with their chief complaint. TRAVEL OUTSIDE OF THE [place] IN LAST 30 DAYS: No - Related Data Allergies/Adverse Reactions: hydroxyzine Allergy (Verified 03/22/20 20:31) ibuprofen Allergy (Verified 03/22/20 20:31) ketorolac [From Toradol] Allergy (Verified 03/22/20 20:31) tramadol Allergy (Verified 03/22/20 20:31) Past Medical History - Social History Frequency of alcohol use: None Drug Abuse: None Family history: Reviewed & Not Pertinent - Past Medical History Cardiac Medical History: Reports: Hx Hypertension Renal/ Medical History: Reports: Hx Kidney Stones. Denies: Hx Peritoneal Dialysis Musculoskeltal Medical History: Reports Hx Musculoskeletal Deformity, Reports Hx Musculoskeletal Trauma Psychiatric Medical History: Reports: Hx Anxiety, Hx Depression - anxiety Traumatic Medical History: Reports: Hx Fractures - Left ankle Past Surgical History: Reports: Hx Section - x3, Hx Cholecystectomy, Hx Neurologic Surgery - KINDERGARTEN TEACHER SHUNT, Hx Orthopedic Surgery - left ankle x1, right ankle x6, Hx Tubal Ligation, Hx KINDERGARTEN TEACHER Shunt, Other - Lap band and removal - Immunizations Immunizations up to date: Yes Hx Diphtheria, Pertussis, Tetanus Vaccination: Yes Physical Exam - Vital signs Vitals: Temp Pulse Resp BP Pulse Ox 98.2 F 119 H 18 146/90 H 98 03/22/20 19:55 03/22/20 19:55 03/22/20 19:55 03/22/20 19:55 03/22/20 19:55 Course - Vital Signs Vital signs: Temp Pulse Resp BP Pulse Ox 98.2 F 119 H 18 146/90 H 98 03/22/20 19:55 03/22/20 19:55 03/22/20 19:55 03/22/20 19:55 03/22/20 19:55
[2020-03-23 00:32] LABS: ABSOLUTE EOSINOPHILS # (AUTO) 0.3 10^3/uL (0.0-0.6); ABSOLUTE LYMPHOCYTES (AUTO) 3.3 10^3/uL (0.5-4.7); ABSOLUTE MONOCYTES (AUTO) 0.6 10^3/uL (0.1-1.4); ABSOLUTE NEUT (AUTO) 5.4 10^3/uL (1.7-8.2); BASOPHILS % (AUTO) 0.5 % (0-2); EOSINOPHILS % (AUTO) 3.2 % (0-6); HEMATOCRIT 40.5 % (36.0-47.0); LYMPHOCYTES % (AUTO) 34.3 % (13-45); MEAN CORPUSCULAR HEMOGLOBIN 28.2 pg (27.0-33.4); MEAN CORPUSCULAR HGB CONC 34.5 g/dL (32.0-36.0); MEAN CORPUSCULAR VOLUME 82 fl (80-97); MONOCYTES % (AUTO) 6.2 % (3-13); PLATELET COUNT 321 10^3/uL (150-450); RED BLOOD COUNT 4.95 10^6/uL (3.72-5.28); RED CELL DISTRIBUTION WIDTH 14.4 % (11.5-14.0); SEGMENTED NEUTROPHILS % (AUTO) 55.8 % (42-78); TOTAL CELLS COUNTED % (AUTO) 100 %; WHITE BLOOD COUNT 9.7 10^3/uL (4.0-10.5)
[2020-03-23 00:50] LABS: ALBUMIN 4.1 g/dL (3.5-5.0); ALKALINE PHOSPHATASE 86 U/L (38-126); ANION GAP 7 (5-19); ASPARTATE AMINO TRANSFERASE 18 U/L (14-36); BILIRUBIN,DIRECT 0.2 mg/dL (0.0-0.4); BILIRUBIN,TOTAL 0.5 mg/dL (0.2-1.3); BLOOD UREA NITROGEN 13 mg/dL (7-20); CALCIUM 9.5 mg/dL (8.4-10.2); CARBON DIOXIDE 25 mmol/L (22-30); CHLORIDE 105 mmol/L (98-107); GLUCOSE 93 mg/dL (75-110); POTASSIUM 4.6 mmol/L (3.6-5.0); TOTAL PROTEIN 7.3 g/dL (6.3-8.2)
[2020-03-23] MEDS ORDERED: MORPHINE SULFATE 10 MG/ML INJ IV ONE ×2 (02:05→04:32)
[2020-03-23] MEDS ORDERED: ONDANSETRON HCL INJ/PF 4 MG/2 ML SDV IV ONE ×2 (02:06→04:32)
--- NOTE | 2020-03-23 02:13 | ER Document Report ---
ED General - General Chief Complaint: Abdominal Pain Stated Complaint: ABDOMINAL PAIN Time Seen by Provider: 03/22/20 20:31 Primary Care Provider: [facility] [Provider Group] - Follow up as needed [facility] [Provider Group] - Follow up as needed FRANK ALVARADO MD [ACTIVE STAFF] - Follow up as needed (Gastroenterology referral) ISMAEL HARDWICK MD [NO LOCAL MD] - Follow up as needed (Neurology referral) Mode of Arrival: Ambulatory TRAVEL OUTSIDE OF THE [place] IN LAST 30 DAYS: No - HPI Notes: Patient is a 34-year-old female with history of cholecystectomy in 2009 who presents with right upper quadrant abdominal pain that worsened 2 days ago. Patient states she has had this pain ongoing intermittently for the past year. She describes the pain as a stabbing pain. She also reports yellow diarrhea that has been ongoing for months. She denies any blood in her stool, nausea, vomiting, chest pain, shortness of breath, fever, dysuria, vaginal bleeding, and vaginal discharge. Patient states she does not currently follow with primary care provider as she lost Medicaid, but states she will be insured in the new year. Patient has a history of lap band surgery with removal, C-sections x3, and tubal ligation. 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 - Related Data Allergies/Adverse Reactions: hydroxyzine Allergy (Verified 03/22/20 20:31) ibuprofen Allergy (Verified 03/22/20 20:31) ketorolac [From Toradol] Allergy (Verified 03/22/20 20:31) tramadol Allergy (Verified 03/22/20 20:31) Past Medical History - General Information source: Patient - Social History Smoking Status: Current Every Day Smoker Frequency of alcohol use: None Drug Abuse: None Family History: Reviewed & Not Pertinent - Past Medical History Cardiac Medical History: Reports: Hx Hypertension Renal/ Medical History: Reports: Hx Kidney Stones. Denies: Hx Peritoneal Dialysis Musculoskeletal Medical History: Reports Hx Musculoskeletal Deformity, Reports Hx Musculoskeletal Trauma Psychiatric Medical History: Reports: Hx Anxiety, Hx Depression - anxiety Traumatic Medical History: Reports: Hx Fractures - Left ankle Past Surgical History: Reports: Hx Section - x3, Hx Cholecystectomy, Hx Neurologic Surgery - WINDMILL MECHANIC SHUNT, Hx Orthopedic Surgery - left ankle x1, right ankle x6, Hx Tubal Ligation, Hx WINDMILL MECHANIC Shunt, Other - Lap band and removal - Immunizations Immunizations up to date: Yes Hx Diphtheria, Pertussis, Tetanus Vaccination: Yes Review of Systems - Review of Systems Constitutional: No symptoms reported EENT: No symptoms reported Cardiovascular: No symptoms reported Respiratory: No symptoms reported Gastrointestinal: See HPI Genitourinary: No symptoms reported Female Genitourinary: No symptoms reported Musculoskeletal: No symptoms reported Skin: No symptoms reported Hematologic/Lymphatic: No symptoms reported Neurological/Psychological: No symptoms reported Physical Exam - Vital signs Vitals: Temp Pulse Resp BP Pulse Ox 98.2 F 119 H 18 146/90 H 98 03/22/20 19:55 03/22/20 19:55 03/22/20 19:55 03/22/20 19:55 03/22/20 19:55 - Notes Notes: PHYSICAL EXAMINATION: VITALS: Vitals reviewed and within normal limits. GENERAL: Well-appearing, well-nourished and in no acute distress. HEAD: Atraumatic, normocephalic. EYES: Pupils equal, round, and reactive to light, extraocular movements intact, sclera anicteric, conjunctiva are normal. ENT: Nares patent. Moist mucous membranes. Oropharynx clear without exudates. NECK: Normal range of motion, supple without lymphadenopathy. LUNGS: Breath sounds clear to auscultation bilaterally and equal. No wheezes, rales, or rhonchi. HEART: Regular, rate, and rhythm without murmurs. ABDOMEN: Soft abdomen with normoactive bowel sounds. Tenderness to the mid epigastrium and right upper quadrant. Negative Butt sign. Negative McBurney sign. No guarding, no rebound. No masses appreciated. EXTREMITIES: Normal range of motion, no pitting or edema. No cyanosis. NEUROLOGICAL: No focal neurological deficits. Moves all extremities sp ontaneously and on command. PSYCH: Normal mood, normal affect. SKIN: Warm, Dry, normal turgor, no rashes or lesions noted. Course - Re-evaluation Re-evalutation: Presentation of intermittent upper abdominal pain for the past year that worsened today. RUQ and midepigastric tenderness on exam with negative Butt's sign. Patient has a hx of cholecystectomy in 2009. Patient tachycardic at the time of arrival with a HR of 119. Vital signs are otherwise within normal limits. Laboratories are unremarkable without evidence of cystitis, , or leukocytosis. CT abdomen/pelvis shows 1. 4.2 cm simple appearing left ovar destin cyst which should be considered almost certainly benign with no follow-up recommended. 2. 1.1 cm left adrenal nodule most likely represents an adenoma, would recommend one-year follow-up adrenal washout protocol CT.Patient is overall very well in appearance. Based on clinical history and examination I do not suspect an acute appendicitis, tubo-ovarian abscess, related pathology, pelvic inflammatory disease, mesenteric ischemia, or pyelonephritis. Patient deferred pelvic exam. I discussed labwork and CT results with the patient and advised that she follow up concerning this findings with her PCP. I also recommended that she follow up with GI for her chronic abdominal pain. Patient understands and is in agreement with the plan. Will discharge home with return precautions and followup recommendations. - Vital Signs Vital signs: Temp Pulse Resp BP Pulse Ox 98.2 F 85 99 H 137/84 H 99 03/23/20 05:57 03/23/20 05:57 03/23/20 05:57 03/23/20 05:57 03/23/20 05:57 - Laboratory Results Result Diagrams: 03/23/20 00:05 03/23/20 00:05 Laboratory Results Interpreted: 03/23/20 03/23/20 00:05 00:05 RDW 14.4 H Urine Urobilinogen 4.0 H Critical Laboratory Results Reviewed: No Critical Results - Radiology Results Radiology Results Interpreted: Abdomen/Pelvis CT 03/23/20 00:30 IMPRESSION: 1. 4.2 cm simple appearing left ovarian cyst which should be considered almost certainly benign with no follow-up recommended. 2. 1.1 cm left adrenal nodule most likely represents an adenoma, would recommend one-year follow-up adrenal washout protocol CT. Critical Radiology Results Reviewed: No Critical Results Discharge - Discharge Clinical Impression: Left ovarian cyst, Adrenal nodule Abdominal pain Qualifiers: Abdominal location: upper abdomen, unspecified Qualified Code(s): R10.10 - Upper abdominal pain, unspecified Condition: Stable Disposition: HOME, SELF-CARE Additional Instructions: You have been seen in the Emergency Department (ED) for abdominal pain. Your evaluation did not identify a clear cause of your symptoms but was generally reassuring. Please follow up with your doctor as soon as possible regarding today's emergent visit and the symptoms that are bothering you. Return to the ED if your abdominal pain worsens or fails to improve, you develop bloody vomiting, bloody diarrhea, you are unable to tolerate fluids due to vomiting, fever greater than 101, or other symptoms that concern you. Referrals: [facility] [Provider Group] - Follow up as needed [facility] [Provider Group] - Follow up as needed FRANK ALVARADO MD [ACTIVE STAFF] - Follow up as needed (Gastroenterology referral) ISMAEL HARDWICK MD [NO LOCAL MD] - Follow up as needed (Neurology referral)
--- NOTE | 2020-03-23 03:08 | RADIOLOGY REPORT (SQ) ---
CT abdomen and pelvis with contrast on 03/23/2020 at 2:26 AM CLINICAL INDICATION: Right lower quadrant pain TECHNIQUE: Multiple axial images are obtained throughout the abdomen and pelvis following the administration of IV contrast, 100 mL of Omnipaque 350contrast was administered intravenously without complication. This exam was performed according to our departmental dose-optimization program, which includes automated exposure control, adjustment of the mA and/or kV according to patient size and/or use of iterative reconstruction technique. Total DLP is 1948.7 mGy*cm. COMPARISON: 04/02/2018 FINDINGS: Abdomen: The lung bases are clear. The patient is status post cholecystectomy. There is a small 1.1 cm left adrenal nodule that measures 17 Hounsfield units that likely represents an adenoma. Would recommend one-year follow-up adrenal washout protocol CT. The solid abdominal organs are otherwise unremarkable. There is no abdominal adenopathy. POCKET CUTTER shunt tubing is noted in the right anterior chest wall that enters the right abdomen and terminates in the right upper quadrant after extending into the left pelvis. There is no free fluid or free air within the abdomen. The abdominal portion of the GI tract is unremarkable. Pelvis: There is a 4.2 x 3.5 x 2.8 cm simple appearing left ovarian cyst which should be considered benign with no follow-up recommended. There is an apparent adhesion along the anterior pelvic wall with the anterior uterine wall likely related to prior surgery. Pelvic organs otherwise appear unremarkable by CT. There is no free fluid in the pelvis. There is no pelvic adenopathy. The pelvic portion of the GI tract including the appendix is unremarkable. There is a very small umbilical hernia containing only fat. No acute bony abnormality is noted. IMPRESSION: 1. 4.2 cm simple appearing left ovarian cyst which should be considered almost certainly benign with no follow-up recommended. 2. 1.1 cm left adrenal nodule most likely represents an adenoma, would recommend one-year follow-up adrenal washout protocol CT.
[2020-03-23 04:36] LABS: APPEARANCE,URINE CLOUDY; BILIRUBIN,URINE NEGATIVE (NEGATIVE); COLOR,URINE YELLOW; GLUCOSE, URINE NEGATIVE (NEGATIVE); KETONES,URINE NEGATIVE (NEGATIVE); LEUKOCYTE ESTERASE,URINE NEGATIVE (NEGATIVE); NITRITE,URINE NEGATIVE (NEGATIVE); PROTEIN,URINE NEGATIVE (NEGATIVE); URINE SPECIFIC GRAVITY 1.027
[2020-03-23 06:04] VITALS: BP 137/84
== END 2020-03-23 05:57 | disposition home or self-care (01) ==
LOC: ER 19:48
DX: N83.202 Unspecified ovarian cyst, left side (principal); R10.11 Right upper quadrant pain; G89.29 Other chronic pain; E27.9 Disorder of adrenal gland, unspecified; R19.7 Diarrhea, unspecified; R10.816 Epigastric abdominal tenderness; R10.811 Right upper quadrant abdominal tenderness; F17.200 Nicotine dependence, unspecified, uncomplicated; Z90.49 Acquired absence of other specified parts of digestive tract; Z88.8 Allergy status to other drugs, medicaments and biological substances; Z88.6 Allergy status to analgesic agent; R00.0 Tachycardia, unspecified
CPT/HCPCS: 99285; 96374; 96375; 36415; 83690; 84703; 85025; 80053; 81001; 74177; J2270; J2405

== ENCOUNTER 2020-04-07 17:49 | Emergency (ER) | payer SELFPAY ==
[2020-04-07 18:05] VITALS: BP 131/91
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
== END 2020-04-07 19:45 | disposition home or self-care (01) ==
LOC: ER 17:49
DX: S61.452A Open bite of left hand, initial encounter (principal); W55.01XA Bitten by cat, initial encounter; Y93.K9 Activity, other involving animal care; I10 Essential (primary) hypertension; F17.200 Nicotine dependence, unspecified, uncomplicated; Z88.8 Allergy status to other drugs, medicaments and biological substances; Z88.6 Allergy status to analgesic agent
CPT/HCPCS: 99283